=== PATIENT | female | born 1950 | race Caucasian/White ===

== ENCOUNTER 2019-09-04 05:23 | Emergency (ER) | payer MEDICARE, SELFPAY ==
[2019-09-04 05:36] VITALS: BP 148/75; PULSE 105; RESP 18; TEMP 36.8; O2SAT 97; BMI 35.2
[2019-09-04 05:38] VITALS: BP 167/95; PULSE 98; RESP 18; TEMP 36.5; O2SAT 95
--- NOTE | 2019-09-04 05:47 | PC.NURSE ---
Introduced self to patient and initiated vital signs. Patient presents A&O x 4. NAD, ABCs intact, MAEW and agreeable to treatment. Respirations are even and unlabored. Pt states that the chief complaint for the ER visit today is due to a cough which presented yesterday. Pt denies any vision disturbances or lightheadedness. Bed left in lowest position in semi-fowlers with side rails up.Reassured patient of needs and will continue to monitor.
--- NOTE | 2019-09-04 05:49 | XRR_ITS ---
PROCEDURE INFORMATION: Exam: XR Chest, 2 Views Exam date and time: 09/04/2019 6:11 AM Age: 69 years old Clinical indication: Cough and shortness of breath; Patient HX: Onset of cough with SOB starting yesterday TECHNIQUE: Imaging protocol: XR of the chest Views: 2 views. COMPARISON: CR Chest 1 [place] [id number] 05/29/2016 11:14 AM FINDINGS: Tubes, catheters and devices: Accentuation of main central pulmonary vasculature. Lungs: Persistent unchanged calcified granuloma right lower lung laterally. Pleural space: Small right pleural effusion. Heart/Mediastinum: Unremarkable. No cardiomegaly. Diaphragm: Focal eventration of the right hemidiaphragm. Vasculature: Tortuous thoracic aorta. Bones/joints: Degenerative change of the spine. Osteopenia. Surgical suture anchor right shoulder. XR/XR chest 2V* [id number] IMPRESSION: Small right pleural effusion.
--- NOTE | 2019-09-04 06:01 | ED_ITS ---
HPI - General Adult General: Chief complaint: General Medical Stated complaint: COUGH Time Seen by Provider: 09/04/19 05:49 Source: patient Mode of arrival: ambulatory Limitations: no limitations History of Present Illness: HPI narrative: pt is a 69 yo female that states she has had a cough over the last 2 days. she states that it has been non productive in nature. she denies any pain or dyspnea. denies any fevers. denies any sicks contacts. Onset (ago): day(s) Radiation: non-radiation Severity: moderate Associated symptoms: Deny chest pain, dyspnea, headache(s), nausea, rash or vomiting Review of Systems Const: Denies: fever, chills, body aches or change in appetite Eyes: Denies: blurry vision or eye discomfort ENMT: Denies: throat pain or dental pain Card: Denies: chest pain Resp: Reports: non-productive cough; Denies: shortness of breath GI: Denies: abdominal pain, nausea, vomiting or diarrhea : Denies: painful urination Musc: Denies: neck pain or back pain Skin/Breast: Denies: rash Neuro: Denies: headache Psych: Denies: depression Camilo/Lymph: Denies: easy bruising All/Imm: Denies: hives PFSH ED PFSH: Social History Smoking and tobacco status: never smoked Physical Exam Const: COMMON NORMALS: no apparent distress, oriented x3 and healthy appearing HENMT: COMMON NORMALS: normocephalic and head/scalp atraumatic HEAD & SCALP : normocephalic and atraumatic Eye: COMMON NORMALS: PERRL and EOMs intact bilaterally PUPIL: Yes PERRL Neck/C-Spine: COMMON NORMALS: full ROM and supple Chest: COMMONS NORMALS: inspection of chest normal and palpation of chest normal Resp: COMMON NORMALS: normal respiratory effort, no retractions, no use of accessory muscles and clear to auscultation bilaterally AUSCULTATION: clear to auscultation bilaterally Cardio: COMMON NORMALS: regular rate, regular rhythm and no murmurs RATE: regular rate RHYTHM: regular rhythm GI: COMMON NORMALS: normal to inspection, nondistended, normoactive bowel sounds, soft to palpation, non-tender and no masses PALPATION: Yes soft Extremity: COMMON NORMALS: normal to inspection and full ROM Neuro: COMMON NORMALS: oriented x3, moves all extremities and no focal motor deficits Psych: COMMON NORMALS: mental status grossly normal, thought process normal and cooperative THOUGHT PROCESS: normal thought process Skin: COMMON NORMALS: no rashes or lesions noted and no wounds GENERAL SKIN EXAM: no rashes or lesions noted Course Vital Signs: Vital signs: Vital Signs Temperature 97.7 F 09/04/19 05:38 Pulse Rate 93 09/04/19 07:40 Respiratory Rate 20 H 09/04/19 07:40 Blood Pressure 150/76 09/04/19 07:40 Pulse Oximetry 93 09/04/19 07:40 MDM - General Adult MDM Narrative: Medical decision making narrative: Patient presents with cough and congestion that is likely an upper respiratory infection. Patient does have a pleural effusion and possible bacterial infection. She is well-appearing here and has no shortness of breath. She likely has a sinusitis 2. Will start on doxycycline and Tessalon. She has no signs of cardiac cause or pulmonary embolism. She is return if she has a fever or any shortness of breath. Patient is to follow-up with her primary care doctor by the end of the week. She understands and agrees to this plan. Imaging Data^: CXR: Radiologist's impression: Ordering Provider/Ordering MD: Brigido Pace MD Date of Service: 09/04/19 Procedure(s): XR chest 2V* [id number] Accession Number(s): [id number] Report Number: [id number] PROCEDURE INFORMATION: Exam: XR Chest, 2 Views Exam date and time: 09/04/2019 6:11 AM Age: 69 years old Clinical indication: Cough and shortness of breath; Patient HX: Onset of cough with SOB starting yesterday TECHNIQUE: Imaging protocol: XR of the chest Views: 2 views. COMPARISON: CR Chest 1 [place] [id number] 05/29/2016 11:14 AM FINDINGS: Tubes, catheters and devices: Accentuation of main central pulmonary vasculature. Lungs: Persistent unchanged calcified granuloma right lower lung laterally. Pleural space: Small right pleural effusion. Heart/Mediastinum: Unremarkable. No cardiomegaly. Diaphragm: Focal eventration of the right hemidiaphragm. Vasculature: Tortuous thoracic aorta. Bones/joints: Degenerative change of the spine. Osteopenia. Surgical suture anchor right shoulder. XR/XR chest 2V* [id number] IMPRESSION: Small right pleural effusion. Discharge Plan Discharge Patient Disposition: Home, Self-Care Clinical Impression: Bronchitis Condition: Stable Prescriptions: New doxycycline hyclate 100 mg capsule 100 mg PO BID 14 Days Qty: 28 RF: 0 Tessalon Perles 100 mg capsule 100 mg PO Q6H PRN (Reason: cough) Qty: 14 RF: 0 Discharge Orders: Discharge Order (Routine); Ordered 09/04/19 Ordered By: Brigido Pace Discharge Diet: Advance as tolerated Discharge Activity: Resume usual activity Patient Instructions: Acute Bronchitis (ED) Discharge Date/Time: 09/04/19 07:45 Coding Level of Care Code ED Paperboard Machine Operator for Compa Fwd Exam Comprehensive
[2019-09-04] MEDS: benzonatate 100 mg Capsule PO (06:37)
[2019-09-04 07:40] VITALS: BP 150/76; PULSE 93; RESP 20; O2SAT 93
== END 2019-09-04 07:45 | disposition home or self-care (01) ==
PROVIDERS: Emergency Provider Emergency Medicine
DX: J40 Bronchitis, not specified as acute or chronic (principal); J90 Pleural effusion, not elsewhere classified
CPT/HCPCS: 71046; 99281; 99283

== ENCOUNTER 2020-03-15 13:38 | Emergency (ER) | payer MEDICARE, SELFPAY ==
[2020-03-15 13:53] VITALS: BP 135/77; PULSE 101; RESP 20; TEMP 37.2; O2SAT 91; BMI 38.0
--- NOTE | 2020-03-15 14:07 | ECG_ITS ---
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 Measurements Intervals [place] Rate: 98 P: 52 MA: 175 QRS: 7 QRSD: 94 T: 0 QT: 367 QTc: 469 Interpretive Statements SINUS RHYTHM WITH FREQUENT SUPRAVENTRICULAR PREMATURE COMPLEXES NONSPECIFIC ST & T-WAVE ABNORMALITY ABNORMAL RHYTHM ECG Compared to ECG 03/02/2018 07:46:10 T-wave abnormality now present Myocardial infarct finding no longer present Electronically Signed On 03-15-2020 23:43:08 CDT by Micah Bland M.D. [id number]
--- NOTE | 2020-03-15 14:07 | XRR_ITS ---
PROCEDURE INFORMATION: Exam: XR Chest, 1 View Exam date and time: 03/15/2020 2:26 PM Age: 69 years old Clinical indication: Dyspnea; Additional info: Dyspnea since Sunday TECHNIQUE: Imaging protocol: XR of the chest Views: 1 view. COMPARISON: CR XR chest 2V* [id number] 09/04/2019 5:58 AM FINDINGS: Lungs: Prominent right hilar vascular structures stable since prior. Circumscribed granuloma is present in the right lower lobe near the costophrenic sulcus. This finding measures 9 mm. There are scattered granulomas in the left perihilar region. No consolidation. Pleural space: Unremarkable. No pleural effusion. No pneumothorax. Heart/Mediastinum: Unremarkable. No cardiomegaly. Bones/joints: Unremarkable. XR/XR chest 1V portable [id number] IMPRESSION: 1. No acute findings. 2. Stable right lower lobe granuloma. 3. Stable left perihilar granulomas
--- NOTE | 2020-03-15 14:29 | W.ED.GENADLT ---
HPI - General Adult General: Chief complaint: General Medical Stated complaint: FLU SYMPTOMS Time Seen by Provider: 03/15/20 13:53 Source: patient Mode of arrival: ambulatory Limitations: no limitations History of Present Illness: HPI narrative: Kathrin is a very nice 69-year-old female who comes in complaining of flulike symptoms. The patient states that she has had for the past 3 days muscle aches and pains and malaise. She denies loss of sense of taste or loss of sense of smell. She has no cough. She states that she occasionally gets short of breath but she states that is chronic for her. She states she just feels achy and flulike all over. She not had a fever but she has been chilled. She denies any chest pain, back pain, abdominal pain, diarrhea, constipation, or urinary symptoms. Her is ill with similar symptoms but he is also having diarrhea but she is not. Patient's not tried anything for this at home to see if it makes it better or worse. Patient states overall she does not feel that bad but she is concerned about the COVID-19 virus and that is why she came in to get evaluated. Associated symptoms: Reports malaise; Deny chest pain, confusion, diaphoresis, dyspnea, headache(s), nausea, rash, palpitations, syncope or vomiting Review of Systems Const: Reports: body aches, fatigue and malaise; Denies: fever(s), chills or diaphoresis Eyes: Denies: change in vision, blurry vision, photophobia, eye discomfort, eye discharge or eye redness ENMT: Denies: throat pain, odynophagia, hoarseness, swelling of lips/tongue, ear or mastoid pain, ear discharge, change in hearing or nasal discharge Card: Denies: chest pain, palpitations, irregular heart rhythm, edema, lightheadedness, syncope, pre-syncope, dyspnea on exertion or orthopnea Resp: Denies: dyspnea, productive cough, non-productive cough, wheezing, hemoptysis or chest congestion GI: Denies: abdominal pain, nausea, vomiting, hematemesis, coffee ground emesis, heartburn, diarrhea, constipation, GI cramping, hematochezia or melena : Denies: flank pain, dysuria, urinary frequency, urinary urgency or hematuria Musc: Denies: neck pain, back pain, extremity pain, extremity swelling, joint pain, joint swelling, joint redness, joint warmth or joint stiffness Skin/Breast: Denies: rash, pruritus, erythema or skin tenderness Neuro: Denies: headache(s), numbness in extremities, weakness in extremities, sensory changes, lack of coordination, difficulty walking, dizziness, vertigo, confusion, Slurred speech present or seizure-like activity Camilo/Lymph: Denies: easy bruising, easy bleeding, petechiae, purpura or enlarged lymph nodes All/Imm: Denies: urticaria, throat swelling, tongue swelling, facial swelling or acute wheezing PFSH ED PFSH: Medical History Asthma CVA (cerebral vascular accident) DM type 2 (diabetes mellitus, type 2) Hyperlipidemia Hypertension Social History Smoking and tobacco status: never smoked Physical Exam Const: COMMON NORMALS: no acute distress, patient oriented x3, no limitations, healthy appearing and well nourished GENERAL APPEARANCE: cooperative, well kempt and well developed HENMT: COMMON NORMALS: normocephalic, atraumatic, external ears normal, EAC's normal and Normal external nose present HEAD & SCALP: normal to inspection, normocephalic and atraumatic FACE & SINUS: normal facial exam and face symmetric NOSE: Normal external nose present and Normal nares present EXTERNAL EAR: Yes external ears normal EXTERNAL AUDITORY CANAL: EAC's normal MOUTH: Normal oral and palatal mucosa present, lip normal and tongue normal Eye: COMMON NORMALS: Equal, round and reactive pupils present and conjunctivae normal GENERAL EYE: appearance normal, both eyes and all related structures ALIGNMENT: Yes alignment normal PERIORBITAL: periorbital findings normal EYELID: eyelids normal CONJUNCTIVA: Yes conjunctivae normal SCLERA: sclerae normal PUPIL: Yes Equal, round and reactive pupils present Neck/C-Spine: COMMON NORMALS: full ROM, no lymphadenopathy, supple, no meningeal signs and no JVD GENERAL: Yes normal visual inspection and Yes trachea midline Chest: COMMONS NORMALS: normal inspection of the chest and normal palpation of entire chest wall Resp: COMMON NORMALS: normal respiratory effort, No retractions, No use of accessory muscles and clear to auscultation bilaterally EFFORT & INSPECTION: Yes able to speak in complete sentences and Yes symmetric chest movement AUSCULTATION: clear to auscultation bilaterally, no crackles, no rales, no rhonchi and no wheezes Cardio: COMMON NORMALS: no JVD, regular rate, regular rhythm, S1 normal heart sound present and S2 normal heart sound present RATE: regular rate RHYTHM: regular rhythm HEART SOUNDS: S1 normal heart sound present, S2 normal heart sound present, no click, no gallops, no murmurs, no rubs and abnormal split S2 GI: COMMON NORMALS: Soft to palpation and No hepatosplenomegaly present PALPATION: Yes Soft to palpation, No Tenderness to palpation present (GI), No Guarding due to palpation present (GI), No Rigid due to palpation, Yes No hepatosplenomegaly present, No Hernia present, No Palpable mass present and No Pulsatile mass present : COMMON NORMALS: Yes no CVA tenderness BLADDER/KIDNEY EXAM: Yes no CVA tenderness EXTERNAL FEMALE EXAM: No Hernia present Back/Pelvis: COMMON NORMALS: no CVA tenderness, thoracic and lumbar spine normal to inspection, no thoracic nor lumbar tenderness and thoraco-lumbar ROM normal Extremity: COMMON NORMALS: normal to inspection, full ROM, capillary refill normal, no joint enlargement, no clubbing, cyanosis or edema and no calf tenderness Neuro: COMMON NORMALS: patient oriented x3, CN's II-XII intact bilaterally, moves all extremities, no focal motor deficits and no sensory deficits noted MENINGEAL SIGNS: Yes no meningeal signs SPEECH: speech normal Psych: COMMON NORMALS: mental status grossly normal, Normal thought process present, cooperative, normal affect, speech normal and activity/motor behavior normal APPEARANCE: Yes well kempt SPEECH: Yes normal speech THOUGHT PROCESS: Normal thought process present Skin: COMMON NORMALS: no rashes or lesions noted, turgor normal, no jaundice, no petechiae and no mottling GENERAL SKIN EXAM: no rashes or lesions noted and turgor normal Course Vital Signs: Vital signs: Vital Signs Temperature 98.9 F 03/15/20 13:53 Pulse Rate 94 03/15/20 18:26 Respiratory Rate 18 03/15/20 18:26 Blood Pressure 118/86 03/15/20 18:26 Pulse Oximetry 94 03/15/20 18:26 MDM - General Adult MDM Narrative: Medical decision making narrative: 1842 -patient is feeling much better. She is eating and drinking in the room and has no complaints at this time. Her lab evaluation has been unremarkable except for a mild UTI. Patient's was here with similar symptoms so I think this is more likely a viral syndrome but I will go ahead and treat her for her UTI. I discussed with the patient's the reasons for which she needs to return here to the ER and she states she understands. She will follow-up with her regular doctor or return here if she needs to. This time though she looks good and she is ready for discharge. She was given a dose of IV Rocephin for her UTI prior to discharge. Lab Data: Attestation: I reviewed the patient's lab results. Labs: Lab Results 03/15/20 03/15/20 03/15/20 Range/Units 14:25 14:25 14:35 WBC (4.0-10.0) 10^3/ uL RBC (4.1-5.3) 10^6/u L Hgb (11.5-15.3) g/dL Hct (37.0-47.0) % MCV (81-99) fL MCH (28.0-34.0) pg MCHC (30.0-36.0) g/dL RDW (12.1-15.1) % Plt Count (130-400) 10^3/c mm MPV (7.4-10.4) fL Neut % (Auto) % Lymph % (Auto) % Mccone % (Auto) % Eos % (Auto) % Baso % (Auto) % Neut # (Auto) (1.8-7.7) 10^3/u L Lymph # (Auto) (0.8-4.8) 10^3/u L Mccone # (Auto) (0.2-0.9) 10^3/u L Eos # (Auto) (0.0-0.8) 10^3/u L Baso # (Auto) (0.0-0.1) 10^3/u L Nucleated RBC % (a uto) % Nucleated RBCs # /100WBC Sodium (136-145) mmol/L Potassium (3.5-5.1) mmol/L Chloride (98-107) mmol/L Carbon Dioxide (22-29) mmol/L Anion Gap (5-19) BUN (8-23) mg/dL Creatinine (0.5-0.9) mg/dL GFR Calculation (90-130) mL/min Glucose (65-115) mg/dL Calculated Osmolal ity (285-295) mOsm/k g Lactic Acid (0.5-2.2) mmol/L Lactic Acid (Sepsi s) (0.5-2.2) mmol/L Calcium (8.5-10.5) mg/dL Magnesium (1.7-2.3) mg/dL Total Bilirubin (0.15-1.2) mg/dL AST (0-32) U/L ALT (0-33) U/L Alkaline Phosphata se (35-105) IU/L Troponin T Gen 5 n g/L (0-10) ng/L Troponin T 120 Min [place] (0-10) ng/L Delta Troponin T (0-10) ABS# Total Protein (6.6-8.7) g/dL Albumin (3.5-5.2) g/dL Globulin (1.3-4.6) g/dL Lipase (13-60) U/L Urine Color Yellow (Yellow) Urine Appearance Clear (CLEAR) Urine pH 5 (5-7) Ur Specific Gravit y 1.015 (1.005-1.030) Urine Protein 1+ H (Negative) Urine Glucose (UA) Norm (Normal) Urine Ketones Negative (Negative) Urine Blood Trace H (Negative) Urine Nitrate Negative (Negative) Urine Bilirubin Neg (NEGATIVE) Urine Urobilinogen Norm (Negative) mg/dL Ur Leukocyte Cassandra ase Trace H (Negative) Urine RBC None (0-2) /hpf Urine WBC 5-10 H (0-5) /hpf Ur Squamous Epith Cells 0-4 H (0-5) Amorphous Sediment Not Reportable Urine Bacteria 1+ H (NONE) Urine Mucus 2+ Influenza Type A A g Negative (Negative) Influenza Type B A g Negative (Negative) SARS-CoV-2 Ag (Rap id) Negative (Negative) 03/15/20 03/15/20 03/15/20 Range/Units 15:15 15:15 15:15 WBC 13.4 H (4.0-10.0) 10^3/ uL RBC 3.81 L (4.1-5.3) 10^6/u L Hgb 10.1 L (11.5-15.3) g/dL Hct 33.0 L (37.0-47.0) % MCV 86.6 (81-99) fL MCH 26.5 L (28.0-34.0) pg MCHC 30.6 (30.0-36.0) g/dL RDW 13.9 (12.1-15.1) % Plt Count 327 (130-400) 10^3/c mm MPV 10.2 (7.4-10.4) fL Neut % (Auto) 81.0 % Lymph % (Auto) 9.0 % Mccone % (Auto) 9.1 % Eos % (Auto) 0.1 % Baso % (Auto) 0.4 % Neut # (Auto) 10.83 H (1.8-7.7) 10^3/u L Lymph # (Auto) 1.2 (0.8-4.8) 10^3/u L Mccone # (Auto) 1.2 H (0.2-0.9) 10^3/u L Eos # (Auto) 0.0 (0.0-0.8) 10^3/u L Baso # (Auto) 0.1 (0.0-0.1) 10^3/u L Nucleated RBC % (a uto) 0 % Nucleated RBCs # 0.0 /100WBC Sodium 138 (136-145) mmol/L Potassium 3.6 (3.5-5.1) mmol/L Chloride 100 (98-107) mmol/L Carbon Dioxide 20 L (22-29) mmol/L Anion Gap 21.6 H (5-19) BUN 11 (8-23) mg/dL Creatinine 0.6 (0.5-0.9) mg/dL GFR Calculation 99.4 (90-130) mL/min Glucose 118 H (65-115) mg/dL Calculated Osmolal ity 283 L (285-295) mOsm/k g Lactic Acid 2.6 H (0.5-2.2) mmol/L Lactic Acid (Sepsi s) (0.5-2.2) mmol/L Calcium 9.3 (8.5-10.5) mg/dL Magnesium 1.2 L (1.7-2.3) mg/dL Total Bilirubin 1.1 (0.15-1.2) mg/dL AST 11 (0-32) U/L ALT 9 (0-33) U/L Alkaline Phosphata se 105 (35-105) IU/L Troponin T Gen 5 n g/L (0-10) ng/L Troponin T 120 Min [place] (0-10) ng/L Delta Troponin T (0-10) ABS# Total Protein 7.2 (6.6-8.7) g/dL Albumin 4.3 (3.5-5.2) g/dL Globulin 2.9 (1.3-4.6) g/dL Lipase 17 (13-60) U/L Urine Color (Yellow) Urine Appearance (CLEAR) Urine pH (5-7) Ur Specific Gravit y (1.005-1.030) Urine Protein (Negative) Urine Glucose (UA) (Normal) Urine Ketones (Negative) Urine Blood (Negative) Urine Nitrate (Negative) Urine Bilirubin (NEGATIVE) Urine Urobilinogen (Negative) mg/dL Ur Leukocyte Cassandra ase (Negative) Urine RBC (0-2) /hpf Urine WBC (0-5) /hpf Ur Squamous Epith Cells (0-5) Amorphous Sediment Urine Bacteria (NONE) Urine Mucus Influenza Type A A g (Negative) Influenza Type B A g (Negative) SARS-CoV-2 Ag (Rap id) (Negative) 03/15/20 03/15/20 03/15/20 Range/Units 15:15 17:25 18:08 WBC (4.0-10.0) 10^3/ uL RBC (4.1-5.3) 10^6/u L Hgb (11.5-15.3) g/dL Hct (37.0-47.0) % MCV (81-99) fL MCH (28.0-34.0) pg MCHC (30.0-36.0) g/dL RDW (12.1-15.1) % Plt Count (130-400) 10^3/c mm MPV (7.4-10.4) fL Neut % (Auto) % Lymph % (Auto) % Mccone % (Auto) % Eos % (Auto) % Baso % (Auto) % Neut # (Auto) (1.8-7.7) 10^3/u L Lymph # (Auto) (0.8-4.8) 10^3/u L Mccone # (Auto) (0.2-0.9) 10^3/u L Eos # (Auto) (0.0-0.8) 10^3/u L Baso # (Auto) (0.0-0.1) 10^3/u L Nucleated RBC % (a uto) % Nucleated RBCs # /100WBC Sodium (136-145) mmol/L Potassium (3.5-5.1) mmol/L Chloride (98-107) mmol/L Carbon Dioxide (22-29) mmol/L Anion Gap (5-19) BUN (8-23) mg/dL Creatinine (0.5-0.9) mg/dL GFR Calculation (90-130) mL/min Glucose (65-115) mg/dL Calculated Osmolal ity (285-295) mOsm/k g Lactic Acid (0.5-2.2) mmol/L Lactic Acid (Sepsi s) 1.6 (0.5-2.2) mmol/L Calcium (8.5-10.5) mg/dL Magnesium (1.7-2.3) mg/dL Total Bilirubin (0.15-1.2) mg/dL AST (0-32) U/L ALT (0-33) U/L Alkaline Phosphata se (35-105) IU/L Troponin T Gen 5 n g/L 23 H (0-10) ng/L Troponin T 120 Min [place] 19.21 H (0-10) ng/L Delta Troponin T -3.79 L (0-10) ABS# Total Protein (6.6-8.7) g/dL Albumin (3.5-5.2) g/dL Globulin (1.3-4.6) g/dL Lipase (13-60) U/L Urine Color (Yellow) Urine Appearance (CLEAR) Urine pH (5-7) Ur Specific Gravit y (1.005-1.030) Urine Protein (Negative) Urine Glucose (UA) (Normal) Urine Ketones (Negative) Urine Blood (Negative) Urine Nitrate (Negative) Urine Bilirubin (NEGATIVE) Urine Urobilinogen (Negative) mg/dL Ur Leukocyte Cassandra ase (Negative) Urine RBC (0-2) /hpf Urine WBC (0-5) /hpf Ur Squamous Epith Cells (0-5) Amorphous Sediment Urine Bacteria (NONE) Urine Mucus Influenza Type A A g (Negative) Influenza Type B A g (Negative) SARS-CoV-2 Ag (Rap id) (Negative) Imaging Data^: CXR: Attestation: I personally reviewed and interpreted this imaging study as follows: My impression: No acute cardiopulmonary findings. Right perihilar lesion unchanged from previous. EKG Data^: EKG 1: Attestation: I personally reviewed and interpreted this EKG as follows: EKG interpretation date: 03/15/20 EKG interpretation time: 14:31 Interpretation: Normal sinus rhythm at 98 beats a minute, normal axis, no blocks, normal intervals, no acute ST-T wave changes. Computer generated interpretation: Chest X-Ray 03/15/20 14:07 IMPRESSION: 1. No acute findings. 2. Stable right lower lobe granuloma. 3. Stable left perihilar granulomas EKG 2: Attestation: I personally reviewed and interpreted this EKG as follows: EKG interpretation date: 03/15/20 EKG interpretation time: 18:06 Interpretation: Normal sinus rhythm at 95 beats a minute, no blocks, normal intervals, normal axis, no acute ST or T wave changes. Computer generated interpretation: Chest X-Ray 03/15/20 14:07 IMPRESSION: 1. No acute findings. 2. Stable right lower lobe granuloma. 3. Stable left perihilar granulomas Discharge Plan Discharge Patient Disposition: Home Clinical Impression: Acute viral syndrome, Acute UTI Condition: Stable Prescriptions: New cefdinir 300 mg capsule 300 mg PO Q12H 10 Days Qty: 20 RF: 0 No Action atorvastatin 40 mg tablet 40 mg PO BEDTIME RF: 0 lisinopril-hydrochlorothiazide 20-12.5 mg tablet 1 tab PO DAILY RF: 0 clopidogrel 75 mg tablet 75 mg PO DAILY RF: 0 allopurinol 100 mg tablet 100 mg PO DAILY RF: 0 Aspirin Low Dose 81 mg Tablet,Delayed Release (Dr/Ec) 81 mg PO DAILY RF: 0 diltiazem HCl 120 mg tablet 120 mg PO DAILY RF: 0 metformin 1,000 mg tablet 1,000 mg PO BID RF: 0 gabapentin 300 mg capsule 300 mg PO BEDTIME RF: 0 omeprazole 20 mg capsule,delayed release(DR/EC) 20 mg PO DAILY RF: 0 mirtazapine 15 mg tablet 15 mg PO BEDTIME RF: 0 paroxetine HCl 40 mg tablet 40 mg PO DAILY RF: 0 Trulicity 1.5 mg/0.5 mL pen injector 1.5 mg SUBCUT Q7D RF: 0 lorazepam See Rx Instructions .ROUTE .COMPLEX RF: 0 Discharge Orders: Discharge Order (Routine); Ordered 03/15/20 Ordered By: Dottie Saldana Referrals: Zion Cline MD [Physician] - 1-3 days Discharge Diet: Advance as tolerated Discharge Activity: Increase activity as tolerated Patient Instructions: Viral Pneumonia (ED), Urinary Tract Infection in Women (ED) Activity Restrictions/Additional Instructions: Please return to the ER immediately for any of the signs or symptoms listed on your discharge instruction sheets, worsening/changing of your symptoms, you are not getting better as quickly as expected, or for ANY other cause or concerns. Please return to the ER immediately for increased weakness, vomiting, fever, or for any other cause for concern. Be certain to follow-up with Dr. Cline or your doctor as soon as possible for recheck. Coding Level of Care Code ED Mobile Home Set Up Person for Compa Fwd Exam Comprehensive
[2020-03-15 15:15] LABS: SARS Covid-2 Antigen Negative (Negative)
[2020-03-15 15:19] LABS: Add Urine Microscopic? YES; Bilirubin Urine Neg (NEGATIVE); Blood Urine Trace (Negative); Glucose Urine UA Norm (Normal); Ketones Urine Negative (Negative); Leukocyte Esterase Urine Trace (Negative); Nitrate Urine Negative (Negative); Protein Urine 1+ (Negative); Specific Gravity, Urine 1.015 (1.005-1.030); Urine Appearance Clear (CLEAR); Urine Color Yellow (Yellow); Urobilinogen Urine Norm (Negative); pH Urine 5 (5-7)
[2020-03-15 15:22] LABS: Bacteria Urine 1+; Squamous Epithelial Cell Urine 0-4 (0-5)
[2020-03-15 15:23] LABS: Add Urine Culture? No; Mucus Urine 2+
[2020-03-15 15:26] LABS: Basophils # 0.1 10^3/uL (0.0-0.1); Basophils % 0.4 %; Eosinophils % 0.1 %; Hemoglobin 10.1 g/dL (11.5-15.3); Lymphocytes # 1.2 10^3/uL (0.8-4.8); Mean Corpuscular HGB Conc 30.6 g/dL (30.0-36.0); Mean Corpuscular Hemoglobin 26.5 pg (28.0-34.0); Mean Corpuscular Volume 86.6 fL (81-99); Mean Platelet Volume 10.2 fL (7.4-10.4); Monocytes # 1.2 10^3/uL (0.2-0.9); Monocytes % 9.1 %; Neutrophils # 10.83 10^3/uL (1.8-7.7); Nucleated Red Blood Cells % 0 %; Platelet Count 327 10^3/cmm (130-400); Red Blood Count 3.81 10^6/uL (4.1-5.3); Red Cell Distribution Width 13.9 % (12.1-15.1); White Blood Count 13.4 10^3/uL (4.0-10.0)
[2020-03-15 15:40] LABS: Influenza A by IFA Negative (Negative); Influenza B by IFA Negative (Negative)
[2020-03-15 15:56] LABS: Lactic Sepsis W/Reflex 2.6 mmol/L (0.5-2.2)
[2020-03-15 15:59] LABS: Alanine Aminotransferase 9 U/L (0-33); Albumin Level 4.3 g/dL (3.5-5.2); Alkaline Phosphatase 105 IU/L (35-105); Anion Gap 21.6 (5-19); Aspartate Amino Transferase 11 U/L (0-32); Blood Urea Nitrogen 11 mg/dL (8-23); Calcium 9.3 mg/dL (8.5-10.5); Carbon Dioxide 20 mmol/L (22-29); Chloride 100 mmol/L (98-107); Globulin 2.9 g/dL (1.3-4.6); Glomerular Filtration Rate 99.4 mL/min (90-130); Glucose 118 mg/dL (65-115); Lipase 17 U/L (13-60); Magnesium 1.2 mg/dL (1.7-2.3); Osmolality Calculated 283 mOsm/kg (285-295); Potassium 3.6 mmol/L (3.5-5.1); Sodium 138 mmol/L (136-145); Total Bilirubin 1.1 mg/dL (0.15-1.2); Total Protein 7.2 g/dL (6.6-8.7); Troponin T (5th) Once 23 ng/L (0-10)
--- NOTE | 2020-03-15 16:16 | ECG_ITS ---
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 Measurements Intervals [place] Rate: 90 P: 61 MS: 174 QRS: -1 QRSD: 86 T: -9 QT: 381 QTc: 468 Interpretive Statements SINUS RHYTHM WITH OCCASIONAL SUPRAVENTRICULAR PREMATURE COMPLEXES LOW QRS VOLTAGE IN PRECORDIAL LEADS [QRS DEFLECTION < 1.0 mV IN CHEST LEADS] Compared to ECG 03/15/2020 14:31:09 Low QRS voltage now present T-wave abnormality no longer present Electronically Signed On 03-15-2020 23:44:41 CDT by Micah Bland M.D. [id number]
[2020-03-15 17:04] LABS: Reflex Lactate Order REFLEX LACTIC ORDERD
[2020-03-15] MEDS: sodium chloride 0.9% 1,000 ML 999 ML IV ×2 (17:09→18:15)
[2020-03-15] MEDS: cefTRIAXone 1,000 MG in sodium chloride 0.9% (plus) 50 ML 100 MG IV (17:09)
[2020-03-15 17:58] LABS: Troponin 5 2HR 19.21 ng/L (0-10)
[2020-03-15 18:08] LABS: Troponin 5 2HR Delta -3.79 ABS# (0-10)
[2020-03-15] MEDS: magnesium sulfate premix 2 GM/50 ML PIGGYBACK IV (18:15)
--- NOTE | 2020-03-15 18:16 | ECG_ITS ---
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 Measurements Intervals [place] Rate: 95 P: 45 ID: [id number] QRS: 8 QRSD: 83 T: 38 QT: 368 QTc: 465 Interpretive Statements SINUS RHYTHM WITH FREQUENT SUPRAVENTRICULAR PREMATURE COMPLEXES LOW QRS VOLTAGE IN PRECORDIAL LEADS [QRS DEFLECTION < 1.0 mV IN CHEST LEADS] NONSPECIFIC ST & T-WAVE ABNORMALITY ABNORMAL RHYTHM ECG Compared to ECG 03/15/2020 16:44:50 T-wave abnormality now present Electronically Signed On 03-15-2020 23:48:19 CDT by Micah Bland M.D. [id number]
[2020-03-15 18:26] VITALS: BP 118/86; PULSE 94; RESP 18; O2SAT 94
[2020-03-15 18:35] LABS: Lactic Acid level (Lactate) 1.6 mmol/L (0.5-2.2)
[2020-03-15 19:26] VITALS: BP 126/82; PULSE 72; RESP 14; O2SAT 94
== END 2020-03-15 19:27 | disposition home or self-care (01) ==
PROVIDERS: Emergency Provider Emergency Medicine
DX: B34.9 Viral infection, unspecified (principal); N39.0 Urinary tract infection, site not specified; Z79.02 Long term (current) use of antithrombotics/antiplatelets; Z79.82 Long term (current) use of aspirin; Z86.73 Personal history of transient ischemic attack (TIA), and cerebral infarction without residual deficits; E11.9 Type 2 diabetes mellitus without complications; E78.5 Hyperlipidemia, unspecified; I10 Essential (primary) hypertension
CPT/HCPCS: 12345; 36415; 71045; 80053; 81001; 83605; 83690; 83735; 84484; 85025; 87426; 87804; 93005; 96365; 96367; 99283; 99284; J0696; J3475; J7030

== ENCOUNTER 2020-11-10 08:28 | Outpatient (CLI) | payer MEDICARE, SELFPAY ==
--- NOTE | 2020-11-10 08:36 | MM_ITS ---
WS: [id number] BILATERAL DIGITAL SCREENING MAMMOGRAPHY WITH CAD CLINICAL INFORMATION: SCREENING HISTORY: Screening mammogram. No current complaints. COMPARISON: July 26, 2015 TECHNIQUE: Bilateral CC and MLO views. FINDINGS: Scattered fibroglandular densities bilaterally. No suspicious focal mass, asymmetry, calcifications, or architectural distortion. No evidence of malignancy. Benign punctate and vascular calcifications. [place] centered calcifications. MM/[place] [id number] IMPRESSION: BI-RADS: 2-Benign FOLLOW UP: 1 Year Follow-up Recommend return to annual screening mammography.
== END 2020-11-10 08:29 | disposition home or self-care (01) ==
LOC: RADSHAW 08:32
PROVIDERS: PCP Nurse Practitioner Family; Visit Provider Nurse Practitioner Family
DX: Z12.31 Encounter for screening mammogram for malignant neoplasm of breast (principal)
CPT/HCPCS: 77067

== ENCOUNTER → 2021-06-25 10:29 | Outpatient (BNVA) | payer MEDICARE, SELFPAY | PROVIDERS: PCP Nurse Practitioner Family; Visit Provider Registered Nurse Neonatal Intensive Care | DX: Z20.822 Contact with and (suspected) exposure to COVID-19 (principal) | CPT/HCPCS: 87635 ==

== ENCOUNTER 2022-04-13 10:46 | Outpatient (CLI) | payer MEDICARE, SELFPAY ==
[2022-04-13 11:58] LABS: Basophils # 0.1 10^3/uL (0.0-0.1); Basophils % 0.9 %; Eosinophils # 0.2 10^3/uL (0.0-0.8); Hematocrit 38.3 % (37.0-47.0); Hemoglobin 11.4 g/dL (11.5-15.3); Lymphocytes # 2.4 10^3/uL (0.8-4.8); Lymphocytes % 22.6 %; Mean Corpuscular HGB Conc 29.8 g/dL (30.0-36.0); Mean Corpuscular Hemoglobin 25.1 pg (28.0-34.0); Mean Corpuscular Volume 84.4 fl (81-99); Mean Platelet Volume 9.9 fL (7.4-10.4); Monocytes # 0.7 10^3/uL (0.2-0.9); Monocytes % 6.3 %; Neutrophils # 7.08 10^3/uL (1.8-7.7); Neutrophils % 67.9 %; Nucleated Red Blood Cells % 0 %; Platelet Count 492 10^3/cmm (130-400); Red Blood Count 4.54 10^6/uL (4.1-5.3); Red Cell Distribution Width 16.4 % (12.1-15.1); White Blood Count 10.4 10^3/uL (4.0-10.0)
[2022-04-13 12:10] LABS: INR 0.94 (0.83-1.21); Prothrombin Time (Patient) 12.9 Seconds (12.0-15.1)
[2022-04-13 12:20] LABS: Anion Gap 16.4 (5-19); Blood Urea Nitrogen 17 mg/dL (8-23); Calcium 10.1 mg/dL (8.5-10.5); Carbon Dioxide 28 mmol/L (22-29); Chloride 100 mmol/L (98-107); Glomerular Filtration Rate 70.9 mL/min (90-130); Glucose 77 mg/dL (65-115); Osmolality Calculated 290 mOsm/kg (285-295); Potassium 4.4 mmol/L (3.5-5.1); Sodium 140 mmol/L (136-145)
== END 2022-04-13 10:47 | disposition home or self-care (01) ==
PROVIDERS: PCP Nurse Practitioner Family; Visit Provider Internal Medicine Cardiovascular Disease
DX: I10 Essential (primary) hypertension (principal); I49.8 Other specified cardiac arrhythmias; I63.9 Cerebral infarction, unspecified
CPT/HCPCS: 36415; 80048; 85025; 85610

== ENCOUNTER → 2022-09-18 11:16 | Outpatient (BNVA) | payer MEDICARE, SELFPAY | PROVIDERS: PCP Nurse Practitioner Family; Visit Provider Internal Medicine Cardiovascular Disease | DX: I49.8 Other specified cardiac arrhythmias (principal) | CPT/HCPCS: 93242; 99214 ==

== ENCOUNTER 2022-10-18 15:54 | Emergency (ER) | payer MEDICARE, SELFPAY ==
[2022-10-18 16:14] VITALS: BMI 34.2
--- NOTE | 2022-10-18 16:14 | XRR_ITS ---
PROCEDURE INFORMATION: Exam: XR Chest Exam date and time: 10/18/2022 4:31 PM Age: 72 years old Clinical indication: Other: Tachycardia TECHNIQUE: Imaging protocol: Radiologic exam of the chest. Views: 1 view. COMPARISON: CR XR chest 1V portable [id number] 03/15/2020 2:16 PM FINDINGS: Lungs: Calcified granuloma in the right base. No consolidation. Pleural spaces: Unremarkable. No pleural effusion. No pneumothorax. Heart/Mediastinum: Unremarkable. No cardiomegaly. Diaphragm: Stable eventration of the right diaphragm. Bones/joints: [place] in the right humeral head. Other findings: Radiopaque densities in the patient's clothing. XR/XR chest 1V portable [id number] IMPRESSION: 1. No acute findings.
--- NOTE | 2022-10-18 16:15 | ECG_ITS ---
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 Measurements Intervals [place] Rate: 110 P: 0 MI: 0 QRS: 37 QRSD: 98 T: 23 QT: 351 QTc: 475 Interpretive Statements ATRIAL FLUTTER/TACHYCARDIA WITH RAPID VENTRICULAR RESPONSE WITH ABERRANT CONDUCTION OR VENTRICULAR PREMATURE COMPLEXES LOW QRS VOLTAGE IN PRECORDIAL LEADS [QRS DEFLECTION < 1.0 mV IN CHEST LEADS] ABNORMAL RHYTHM ECG Compared to ECG 03/15/2020 18:06:05 Ventricular premature complex(es) now present Aberrant conduction of supraventricular beat(s) now present Sinus rhythm no longer present T-wave abnormality no longer present Electronically Signed On 10-19-2022 0:14:20 CDT by Micah Bland M.D. [id number]
[2022-10-18 16:17] VITALS: BP 132/84; PULSE 106; RESP 18; O2SAT 96
--- NOTE | 2022-10-18 16:49 | W.ED.ARRPALP ---
HPI - Arrhythmia/Palpitations General: Chief Complaint: Arrhythmia/Palpitations Stated Complaint: high HR, Baldo grimm sent Time Seen by Provider: 10/18/22 16:13 History of Present Illness: Patient was sent over here by Dr. Bland for tachycardia. Patient saw him yesterday and return to Holter monitor. He wanted an echo done which she was having done today. Patient's heart rate usually runs 100 to 115 bpm routinely. While she was having her echo done the tech reported her heart rate at [address] Bland and he sent her over here for more evaluation. Patient does have known atrial fibrillation. Patient denies any symptoms at this moment including lightheaded dizziness shortness of breath and chest pain. MD complaint: rapid heart beat Onset (ago): unknown (Chronic but worse with getting her echo) Duration: constant Severity: mild Context: occurred during rest Arrhythmia history: atrial fibrillation Associated symptoms: Reports no associated symptoms; Deny anxiety, nausea or vomiting Review of Systems General: Reports: 10 or more systems reviewed and unremarkable except in HPI and below Const: Denies: fever(s) or chills Eyes: Denies: change in vision ENMT: Denies: throat pain or enlarged tonsils Card: Reports: irregular heart rhythm; Denies: chest pain or palpitations Resp: Denies: dyspnea, productive cough or non-productive cough GI: Denies: abdominal pain, nausea, vomiting or diarrhea : Denies: flank pain Musc: Denies: neck pain or back pain Skin/Breast: Denies: rash or pruritus Neuro: Denies: headache(s), numbness in extremities or weakness in extremities Psych: Denies: anxiety or depression All/Imm: Denies: urticaria or throat swelling PFSH ED PFSH: Medical History Asthma CVA (cerebral vascular accident) DM type 2 (diabetes mellitus, type 2) Hyperlipidemia Hypertension Family History Mother Stroke Hypertension CAD (coronary artery disease) Diabetes Grandmother CAD (coronary artery disease) Cancer Diabetes Father CAD (coronary artery disease) Family/Other Lung disease Denies family history of Clotting disorder Dementia Chronic kidney disease (CKD) Suicide Anesthesia complication Bleeding disorder Social History Smoking and tobacco status: never smoked Alcohol intake: never Physical Exam Const: COMMON NORMALS: no acute distress, average body habitus, patient oriented x3, no limitations, healthy appearing, alert and well nourished HENMT: COMMON NORMALS: normocephalic, atraumatic, hearing grossly normal bilaterally, external ears normal, Normal external nose present and moist oral mucous membranes HEAD & SCALP: normocephalic and atraumatic NOSE: Normal external nose present EXTERNAL EAR: Yes external ears normal Eye: COMMON NORMALS: Equal, round and reactive pupils present, EOMs intact bilaterally, conjunctivae normal and no scleral icterus CONJUNCTIVA: Yes conjunctivae normal PUPIL: Yes Equal, round and reactive pupils present Neck/C-Spine: COMMON NORMALS: full ROM, no lymphadenopathy, supple, no meningeal signs, no JVD and Thyroid normal THYROID: Thyroid normal Chest: COMMONS NORMALS: normal inspection of the chest and normal palpation of entire chest wall Resp: COMMON NORMALS: normal respiratory effort, No retractions, No use of accessory muscles and clear to auscultation bilaterally AUSCULTATION: clear to auscultation bilaterally Cardio: COMMON NORMALS: no JVD RATE: tachycardic RHYTHM: abnormal rhythm irregularly irregular HEART SOUNDS: no murmurs GI: COMMON NORMALS: Normal to inspection, nondistended, normoactive bowel sounds present, Soft to palpation, non-tender, No hepatosplenomegaly present and no masses PALPATION: Yes Soft to palpation and Yes No hepatosplenomegaly present Neuro: COMMON NORMALS: patient oriented x3, CN's II-XII intact bilaterally, moves all extremities, no focal motor deficits and no sensory deficits noted SENSORIUM/ORIENTATION: Yes alert MENINGEAL SIGNS: Yes no meningeal signs Psych: COMMON NORMALS: mental status grossly normal, Normal thought process present, cooperative, normal affect and speech normal SPEECH: Yes normal speech THOUGHT PROCESS: Normal thought process present Skin: COMMON NORMALS: no rashes or lesions noted GENERAL SKIN EXAM: no rashes or lesions noted Course Vital Signs: Vital signs: Vital Signs Pulse Rate 101 H 10/18/22 17:47 Respiratory Rate 18 10/18/22 17:47 Blood Pressure 114/77 10/18/22 17:47 Pulse Oximetry 96 10/18/22 17:47 Oxygen Delivery Me thod 10/18/22 17:47 MDM - Arrhythmia/Palpitations Medical Decision Making Patient was sent over here from her echo for further evaluation of the high heart rate. Patient states her normal heart rate is about 100 110 bpm however when she was having her echo earlier today she said her heart rate was always up to [address] Bland sent her over here for further evaluation. Patient does have a history of atrial fibrillation, she does not know when she goes into or out of it. Patient is currently on Xarelto. Patient is also on metoprolol. Patient denies any complaints such as chest pain nausea vomiting palpitations shortness of breath diaphoresis. Upon physical exam and lab work such as CBC CMP serial EKGs cardiac enzymes chest x-ray, these showed a delta troponin within normal limits, low magnesium, and EKG showed atrial flutter with RVR for 1 EKG. These findings were discussed with up with the patient. Patient was given 2 g of magnesium IV. Patient will be discharged home to follow-up with her primary care provider or Dr. Bladn within the next week. Patient understands this she may have been in atrial flutter/fibrillation during her echo and she may go in and out of it. Patient's medicine may need to be adjusted Differential Diagnosis Likely palpitations, artial fibrillation and artial flutter; Unlikely anxiety, sinus tachycardia, ventricular premature beats, supraventricular tachycardia or ventricular tachycardia Lab Data 10/18/22 16:44 Radiology Impressions Chest X-Ray 10/18/22 16:14 IMPRESSION: 1. No acute findings. Laboratory Results WBC 10.9 10^3/uL (4.0-10.0) H 10/18/22 16:44 RBC 4.20 10^6/uL (4.1-5.3) 10/18/22 16:44 Hgb 10.4 g/dL (11.5-15.3) L 10/18/22 16:44 Hct 34.8 % (37.0-47.0) L 10/18/22 16:44 MCV 82.9 fl (81-99) 10/18/22 16:44 MCH 24.8 pg (28.0-34.0) L 10/18/22 16:44 MCHC 29.9 g/dL (30.0-36.0) L 10/18/22 16:44 RDW 15.6 % (12.1-15.1) H 10/18/22 16:44 Plt Count 419 10^3/cmm (130-400) H 10/18/22 16:44 MPV 9.6 fL (7.4-10.4) 10/18/22 16:44 Neut % (Auto) 67.3 % 10/18/22 16:44 Lymph % (Auto) 21.2 % 10/18/22 16:44 [place] % (Auto) 7.8 % 10/18/22 16:44 Eos % (Auto) 2.9 % 10/18/22 16:44 Baso % (Auto) 0.5 % 10/18/22 16:44 Neut # (Auto) 7.35 10^3/uL (1.8-7.7) 10/18/22 16:44 Lymph # (Auto) 2.3 10^3/uL (0.8-4.8) 10/18/22 16:44 [place] # (Auto) 0.9 10^3/uL (0.2-0.9) 10/18/22 16:44 Eos # (Auto) 0.3 10^3/uL (0.0-0.8) 10/18/22 16:44 Baso # (Auto) 0.1 10^3/uL (0.0-0.1) 10/18/22 16:44 Nucleated RBC % (auto) 0 % 10/18/22 16:44 Nucleated RBCs # 0.0 /100WBC 10/18/22 16:44 PT 13.10 SECONDS (12.1-14.9) 10/18/22 16:44 INR 0.96 (0.8-1.2) 10/18/22 16:44 Sodium 141 mmol/L (136-145) 10/18/22 16:44 Potassium 4.4 mmol/L (3.5-5.1) 10/18/22 16:44 Chloride 101 mmol/L (98-107) 10/18/22 16:44 Carbon Dioxide 30 mmol/L (22-29) H 10/18/22 16:44 Anion Gap 14.4 (5-19) 10/18/22 16:44 BUN 17 mg/dL (8-23) 10/18/22 16:44 Creatinine 0.7 mg/dL (0.5-0.9) 10/18/22 16:44 GFR Calculation Not Reportable 10/18/22 16:44 Glucose 143 mg/dL (65-115) H 10/18/22 16:44 Calculated Osmolality 296 mOsm/kg (285-295) H 10/18/22 16:44 Calcium 9.2 mg/dL (8.5-10.5) 10/18/22 16:44 Magnesium 1.3 mg/dL (1.7-2.3) L 10/18/22 16:44 Total Bilirubin 0.4 mg/dL (0.15-1.2) 10/18/22 16:44 AST 11 U/L (0-32) 10/18/22 16:44 ALT 6 U/L (0-33) 10/18/22 16:44 Alkaline Phosphatase 120 U/L (35-105) H 10/18/22 16:44 Troponin T Baseline 16 ng/L (0-10) H 10/18/22 16:44 Troponin T 120 Minute 17.41 ng/L (0-10) H 10/18/22 18:44 Delta Troponin T 1.41 ABS# (0-10) 10/18/22 18:44 NT-Pro-B Natriuret Pep 693 pg/mL (0-125) H 10/18/22 16:44 Total Protein 6.7 g/dL (6.6-8.7) 10/18/22 16:44 Albumin 4.4 g/dL (3.5-5.2) 10/18/22 16:44 Globulin 2.3 g/dL (1.3-4.6) 10/18/22 16:44 EKG Data EKG 1: I personally reviewed and interpreted this EKG as follows: EKG interpretation date: 10/18/22 EKG interpretation time: 16:24 Interpretation: EKG showed ventricular rate of 110 bpm, atrial flutter/tachycardia with RVR with aberrant conduction or PVCs, QRS duration 98, QTc 416, no ST-T wave changes Other EKG comments: Chest X-Ray 10/18/22 16:14 IMPRESSION: 1. No acute findings. EKG 2: I personally reviewed and interpreted this EKG as follows: EKG interpretation date: 10/18/22 EKG interpretation time: 18:51 Prior EKG tracings: available for review Interpretation: EKG showed ventricular rate 110 bpm, atrial flutter/tachycardia with RVR, QRS duration 87, QTc 426, Other EKG comments: Chest X-Ray 10/18/22 16:14 IMPRESSION: 1. No acute findings. Discharge Plan Discharge Patient Disposition: Home Clinical Impression: Intermittent atrial fibrillation, Hypomagnesemia Condition: Stable Prescriptions: No Action insulin detemir U-100 100 unit/mL (3 mL) insulin pen 30 unit SUBCUT BID Xarelto 20 mg tablet 20 mg PO DAILY Qty: 90 3RF Rx Instructions: 340B plan metoprolol tartrate 25 mg tablet 25 mg PO BID Qty: 180 3RF atorvastatin 40 mg tablet 40 mg PO BEDTIME lisinopril-hydrochlorothiazide 20-12.5 mg tablet 1 tab PO DAILY allopurinol 100 mg tablet 100 mg PO DAILY metformin 1,000 mg tablet 1,000 mg PO BID Rx Instructions: TAKE WITH MEALS mirtazapine 15 mg tablet 15 mg PO BEDTIME Rx Instructions: PT THINKS SHE TAKES THIS MEDICATION. paroxetine HCl 40 mg tablet 40 mg PO DAILY Trulicity 1.5 mg/0.5 mL pen injector 1.5 mg SUBCUT Q7D Rx Instructions: PT STATES SHE TAKES THIS ON TUESDAYS. Discharge Orders: Discharge ED (Routine); Ordered 10/18/22 Ordered By: Wolf Painter Referrals: Ruben Her NP [Primary Care Provider] - 1 week Patient Instructions: A-fib (Atrial Fibrillation) (ED), Hypomagnesemia (ED) Activity Restrictions/Additional Instructions: Please purchase an [id number] magnesium supplementation take as directed. 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
[2022-10-18 16:59] VITALS: BP 109/83; PULSE 109; RESP 23; O2SAT 98
[2022-10-18 17:18] LABS: Basophils # 0.1 10^3/uL (0.0-0.1); Basophils % 0.5 %; Eosinophils # 0.3 10^3/uL (0.0-0.8); Eosinophils % 2.9 %; Hematocrit 34.8 % (37.0-47.0); Hemoglobin 10.4 g/dL (11.5-15.3); Lymphocytes # 2.3 10^3/uL (0.8-4.8); Lymphocytes % 21.2 %; Mean Corpuscular HGB Conc 29.9 g/dL (30.0-36.0); Mean Corpuscular Hemoglobin 24.8 pg (28.0-34.0); Mean Corpuscular Volume 82.9 fl (81-99); Mean Platelet Volume 9.6 fL (7.4-10.4); Monocytes # 0.9 10^3/uL (0.2-0.9); Monocytes % 7.8 %; Neutrophils # 7.35 10^3/uL (1.8-7.7); Neutrophils % 67.3 %; Nucleated Red Blood Cells % 0 %; Platelet Count 419 10^3/cmm (130-400); Red Cell Distribution Width 15.6 % (12.1-15.1); White Blood Count 10.9 10^3/uL (4.0-10.0)
[2022-10-18 17:33] LABS: Troponin(5th) Baseline 16 ng/L (0-10)
[2022-10-18 17:43] LABS: Alanine Aminotransferase 6 U/L (0-33); Albumin Level 4.4 g/dL (3.5-5.2); Alkaline Phosphatase 120 U/L (35-105); Anion Gap 14.4 (5-19); Aspartate Amino Transferase 11 U/L (0-32); Blood Urea Nitrogen 17 mg/dL (8-23); Calcium 9.2 mg/dL (8.5-10.5); Carbon Dioxide 30 mmol/L (22-29); Chloride 101 mmol/L (98-107); Globulin 2.3 g/dL (1.3-4.6); Glucose 143 mg/dL (65-115); Magnesium 1.3 mg/dL (1.7-2.3); NT Pro B Type Natriuretic Pept 693 pg/mL (0-125); Osmolality Calculated 296 mOsm/kg (285-295); Potassium 4.4 mmol/L (3.5-5.1); Sodium 141 mmol/L (136-145); Total Bilirubin 0.4 mg/dL (0.15-1.2); Total Protein 6.7 g/dL (6.6-8.7)
[2022-10-18 17:47] VITALS: BP 114/77; PULSE 101; RESP 18; O2SAT 96
[2022-10-18 17:47] LABS: INR 0.96 (0.8-1.2)
--- NOTE | 2022-10-18 18:15 | ECG_ITS ---
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 Measurements Intervals [place] Rate: 110 P: 0 WV: 0 QRS: 64 QRSD: 87 T: 44 QT: 361 QTc: 489 Interpretive Statements ATRIAL FLUTTER/TACHYCARDIA WITH RAPID VENTRICULAR RESPONSE POSSIBLE ANTERIOR MYOCARDIAL INFARCTION , PROBABLY OLD [30 ms Q WAVE IN V3/V4, OR R < 0.2 mV IN V4] ABNORMAL RHYTHM ECG Compared to ECG 10/18/2022 16:24:19 Myocardial infarct finding now present Ventricular premature complex(es) no longer present Aberrant conduction of supraventricular beat(s) no longer present Electronically Signed On 10-19-2022 0:24:14 CDT by Micah Bland M.D. [id number]
[2022-10-18] MEDS: magnesium sulfate premix 2 GM/50 ML PIGGYBACK IV (19:19)
[2022-10-18 19:27] LABS: Troponin 5 2HR 17.41 ng/L (0-10)
[2022-10-18 19:28] LABS: Troponin 5 2HR Delta 1.41 ABS# (0-10)
[2022-10-18 20:26] VITALS: BP 103/89; PULSE 109; RESP 18; O2SAT 96
== END 2022-10-18 20:27 | disposition home or self-care (01) ==
PROVIDERS: Emergency Provider Emergency Medicine; PCP Nurse Practitioner Family
DX: I48.91 Unspecified atrial fibrillation (principal); E83.42 Hypomagnesemia; Z79.85 Long-term (current) use of injectable non-insulin antidiabetic drugs; Z79.84 Long term (current) use of oral hypoglycemic drugs; Z79.4 Long term (current) use of insulin; Z86.73 Personal history of transient ischemic attack (TIA), and cerebral infarction without residual deficits; E11.9 Type 2 diabetes mellitus without complications; E78.5 Hyperlipidemia, unspecified; I10 Essential (primary) hypertension
CPT/HCPCS: 36415; 71045; 80053; 83735; 83880; 84484; 85025; 85610; 93005; 93308; 96365; 99285; J3475

== ENCOUNTER → 2023-05-09 12:37 | Outpatient (BNVA) | payer MEDICARE, SELFPAY | PROVIDERS: PCP Nurse Practitioner Family; Referring Provider Nurse Practitioner Family; Visit Provider Surgery | DX: Z12.11 Encounter for screening for malignant neoplasm of colon (principal); D64.9 Anemia, unspecified | CPT/HCPCS: 99024; 99204 ==

== ENCOUNTER 2023-07-18 14:26 | Outpatient (CLI) | payer MEDICARE, SELFPAY ==
[2023-07-18 15:26] LABS: Anion Gap 17.9 (5-19); Blood Urea Nitrogen 26 mg/dL (8-23); Calcium 9.8 mg/dL (8.5-10.5); Carbon Dioxide 24 mmol/L (22-29); Chloride 103 mmol/L (98-107); Glucose 160 mg/dL (65-115); Osmolality Calculated 300 mOsm/kg (285-295); Potassium 3.9 mmol/L (3.5-5.1); Sodium 141 mmol/L (136-145)
== END 2023-07-18 14:27 | disposition home or self-care (01) ==
LOC: LAB 14:29
PROVIDERS: Visit Provider Family Medicine
DX: E87.5 Hyperkalemia (principal)
CPT/HCPCS: 36415; 80048

== ENCOUNTER → 2024-02-29 09:52 | Outpatient (BNVA) | payer MEDICARE, SELFPAY | PROVIDERS: PCP Family Medicine; Visit Provider Family Medicine | DX: E11.9 Type 2 diabetes mellitus without complications (principal); M10.9 Gout, unspecified; D50.9 Iron deficiency anemia, unspecified; I10 Essential (primary) hypertension | CPT/HCPCS: 80053; 82746; 83036; 83550; 84439; 84443; 84550; 85025 ==

== ENCOUNTER 2024-03-12 15:49 | Outpatient (CLI) | payer MEDICARE, SELFPAY ==
--- NOTE | 2024-03-12 15:56 | XR_ITS ---
WS: [id number] Exam: XR abdomen 3V [id number] Date/Time of Exam: 03/12/2024 4:14 PM Reason For Exam: constipation No bowel obstruction or free air. No sign of constipation or fecal impaction. No sign of organ enlarg ement. Moderate degenerative changes of the lower thoracic and lumbar spine with mild levoscoliosis. Hiatal hernia. XR/XR abdomen 3V [id number] IMPRESSION: 1. No acute abdominal process. No constipation identified.
== END 2024-03-12 15:50 | disposition home or self-care (01) ==
LOC: RAD 15:51
PROVIDERS: PCP Family Medicine; Visit Provider Nurse Practitioner
DX: K59.00 Constipation, unspecified (principal); K44.9 Diaphragmatic hernia without obstruction or gangrene; M51.35 Other intervertebral disc degeneration, thoracolumbar region; M41.80 Other forms of scoliosis, site unspecified
CPT/HCPCS: 74021

== ENCOUNTER 2024-03-23 18:49 | Emergency (ER) | payer OTHER, SELFPAY ==
[2024-03-23 18:58] VITALS: BP 104/37; PULSE 156; RESP 16; TEMP 36.8; O2SAT 97; BMI 35.2
--- NOTE | 2024-03-23 19:12 | ECG_ITS ---
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 Measurements Intervals [place] Rate: 148 P: 242 SD: 128 QRS: 27 QRSD: 82 T: 46 QT: 308 QTc: 484 Interpretive Statements ATRIAL FLUTTER WITH RAPID VENTRICULAR RESPONSE LOW QRS VOLTAGE IN PRECORDIAL LEADS [QRS DEFLECTION < 1.0 mV IN CHEST LEADS] MODERATE ST DEPRESSION [0.05+ mV ST DEPRESSION] Compared to ECG 10/18/2022 18:51:50 Low QRS voltage now present ST (T wave) deviation now present Myocardial infarct finding no longer present Electronically Signed On 03-24-2024 11:20:44 CDT by Jonathan Chavarria M.D. [id number]
--- NOTE | 2024-03-23 19:32 | XRR_ITS ---
PROCEDURE INFORMATION: Exam: XR Left Ankle Exam date and time: 03/23/2024 7:43 PM Age: 73 years old Clinical indication: Left; Patient HX: Lt foot/ankle pain post fall TECHNIQUE: Imaging protocol: Radiologic exam of the left ankle. Views: 3 or more views. COMPARISON: No relevant prior studies available. FINDINGS: Bones/joints: No acute fracture or dislocation. Small posterior and plantar calcaneal enthesophytes. Soft tissues: Normal. Vasculature: Scattered vascular calcifications. XR/XR ankle LT min 3V* [id number] IMPRESSION: No acute osseous findings.
--- NOTE | 2024-03-23 19:49 | XRR_ITS ---
PROCEDURE INFORMATION: Exam: XR Left Foot Exam date and time: 03/23/2024 7:54 PM Age: 73 years old Clinical indication: Left; Patient HX: Lt foot/ankle pain post fall TECHNIQUE: Imaging protocol: Radiologic exam of the left foot. Views: 3 or more views. COMPARISON: CR (LOW EXM, ) 03/23/2024 7:43 PM FINDINGS: Bones/joints: Nondisplaced fracture of the base of the 5th metatarsal. No dislocation. Soft tissues: Mild soft tissue swelling along the lateral foot. Vasculature: Scattered vascular calcifications. XR/XR foot LT min 3V* [id number] IMPRESSION: Nondisplaced fracture of the base of the 5th metatarsal.
--- NOTE | 2024-03-23 19:54 | ED_ITS ---
HPI - Extremity Problem General: Chief complaint: Extremity Injury, Lower Stated complaint: fall left leg injury Time Seen by Provider: 03/23/24 19:33 History of Present Illness: 73-year-old female with a history of atr ial fibrillation, obesity, diabetes and gout who presents to the emergency room after she fell and hurt her left foot. She has a bruise on the left lateral foot. No other injuries. She is also having pain in her right foot secondary to gout. Related Data Home Medications Medication Instructions Recorded Confirmed allopurinol 100 mg tablet 100 mg PO DAILY 03/15/20 03/12/24 atorvastatin 40 mg tablet 40 mg PO BEDTIME 03/15/20 03/12/24 dulaglutide 1.5 mg/0.5 mL 1.5 mg SUBCUT Q7D 03/15/20 03/12/24 subcutaneous pen injector (Trulicity) lisinopril 20 1 tab PO DAILY 03/15/20 03/12/24 mg-hydrochlorothiazide 12.5 mg tablet mirtazapine 15 mg tablet 15 mg PO BEDTIME 03/15/20 03/12/24 paroxetine HCl 40 mg tablet 40 mg PO DAILY 03/15/20 03/12/24 insulin detemir U-100 100 unit/mL 30 unit SUBCUT BID 02/16/22 03/12/24 (3 mL) subcutaneous pen albuterol sulfate 2.5 mg/3 mL 2.5 mg inhalation Q4H PRN 09/04/23 03/12/24 (0.083 %) solution for nebulization metformin 500 mg tablet 500 mg PO BID 02/29/24 03/12/24 Previous Rx's Medication Instructions Recorded metoprolol tartrate 25 mg tablet 25 mg PO BID #180 tabs 10/17/22 rivaroxaban 20 mg tablet (Xarelto) 20 mg PO DAILY #90 tabs 06/06/23 omeprazole 20 mg capsule,delayed 20 mg PO DAILY PRN for aid reflux 02/29/24 release #90 caps polyethylene glycol 3350 17 17 g PO DAILY #119 grams 03/12/24 gram/dose oral powder (Miralax) hydrocodone 5 mg-acetaminophen 325 1 tab PO Q8H PRN pain #14 tabs 03/23/24 mg tablet polyethylene glycol 3350 17 17 g PO DAILY #510 grams 03/23/24 gram/dose oral powder (Miralax) prednisone 20 mg tablet 60 mg (3 x 20 mg) PO DAILY #20 tabs 03/23/24 Allergies Allergy/AdvReac Type Severity Reaction Status Date / Time sulfamethoxazole Allergy Intermediate ALGY-Hives Verified 03/12/24 15:11 [From Bactrim] trimethoprim [From Bactrim] Allergy Intermediate ALGY-Hives Verified 03/12/24 15:11 Review of Systems Narrative: Constitutional symptoms: Negative except as documented in HPI. Skin symptoms: Negative except as documented in HPI. Eye symptoms: Negative except as documented in HPI. ENMT symptoms: Negative except as documented in HPI. Respiratory symptoms: Negative except as documented in HPI. Cardiovascular symptoms: Negative except as documented in HPI. Gastrointestinal symptoms: Negative except as documented in HPI. Genitourinary symptoms: Negative except as documented in HPI. Musculoskeletal symptoms: Negative except as documented in HPI. Neurologic symptoms: Negative except as documented in HPI. Psychiatric symptoms: Negative except as documented in HPI. Endocrine symptoms: Negative except as documented in HPI. PFSH ED PFSH: Medical History Neuropathy Moderate major depression BRITTNEY (iron deficiency anemia) Gout GERD (gastroesophageal reflux disease) Atrial flutter Anxiety Hx of blood clots Fatigue Tachycardia Diabetes Weakness Hyperlipidemia DM type 2 (diabetes mellitus, type 2) Hypertension CVA (cerebral vascular accident) Asthma Surgical History History of bilateral carpal tunnel release History of esophagogastroduodenoscopy (EGD) 10 + years Hx of colonoscopy less than 10 years ago Hx of carpal tunnel repair bilateral Family History Mother Stroke Hypertension CAD (coronary artery disease) Diabetes Grandmother CAD (coronary artery disease) Cancer Diabetes Father CAD (coronary artery disease) Family/Other Lung disease Denies family history of Clotting disorder Dementia Chronic kidney disease (CKD) Suicide Anesthesia complication Bleeding disorder Social History Smoking and tobacco/nicotine status: never used tobacco/nicotine Alcohol intake: never Substance/Drug Use: never Physical Exam Narrative: EXAM NARRATIVE: General: Alert, no acute distress. Skin: warm and dry Head: Normocephalic Neck: Trachea midline Eye: Extraocular movements are intact. Ears, nose, mouth and throat: Oral mucosa moist Respiratory: Respirations are non-labored Musculoskeletal: Some bruising on the right mid lateral dorsal foot. Neurological: Alert and oriented, No focal neurological deficit observed. Psychiatric: Cooperative, appropriate mood & affect. Course Vital Signs: Vital signs: Vital Signs Temperature 98.2 F 03/23/24 18:58 Pulse Rate 156 H 03/23/24 18:58 Respiratory Rate 16 03/23/24 18:58 Blood Pressure 104/37 03/23/24 18:58 Pulse Oximetry 97 03/23/24 18:58 Oxygen Delivery Me thod Room Air 03/23/24 18:58 MDM - Extremity (Nontraumatic) Medical Decision Making X-ray of the left foot shows a nondisplaced proximal fifth metatarsal fracture. Films were interpreted by myself the emergency room provider and pending final radiology review. Consultation: I spoke with Dr. Tuttle who is on-call for podiatry. He recommends splinting and following clinic with nonweightbearing. Reexamination: No increased work of breathing. Heart rate is improving. She does not want any further evaluation of that. She is asymptomatic. Splint placed by nursing. Patient is neurovascularly intact. Assessment and plan: Proximal metatarsal fracture. Gout Atrial fibrillation with rapid ventricular response. ?Steroids for gout. IM steroid here. Prednisone taper for home. ? Hydrocodone. Splint placed by nursing. - Discharged home - Discussed plan with patient. Answered any questions. - Evaluation and treatment of this problem were appropriate in the emergency setting. XR interpretation done by ED provider, pending radiology final review Discharge Plan Discharge Patient Disposition: Home Clinical Impression: Fracture of fifth metatarsal bone of left foot, Atrial fibrillation with rapid ventricular response Condition: Stable Prescriptions: New hydrocodone-acetaminophen 5-325 mg tablet 1 tab PO Q8H PRN (Reason: pain) Qty: 14 0RF Rx Instructions: Take 1/2 to 1 tab every 8 hours as needed for pain prednisone 20 mg tablet 60 mg PO DAILY Qty: 20 0RF Rx Instructions: 3 tabs (60 mg) x 3 days. 2 tabs (40 mg) x 3 days. 1 tab (20 mg) x 3 days. 1/2 tab (10 mg) x 4 days Miralax 17 gram/dose powder 17 g PO DAILY Qty: 510 0RF Rx Instructions: Take 1 scoop daily while taking pain medications. No Action insulin detemir U-100 100 unit/mL (3 mL) insulin pen 30 unit SUBCUT BID albuterol sulfate 2.5 mg /3 mL (0.083 %) solution for nebulization 2.5 mg inhalation Q4H PRN polyethylene glycol 3350 [Miralax] 17 gram/dose powder 17 g PO DAILY Qty: 119 0RF metformin 500 mg tablet 500 mg PO BID omeprazole 20 mg capsule,delayed release(DR/EC) 20 mg PO DAILY PRN (Reason: for aid reflux) Qty: 90 1RF metoprolol tartrate 25 mg tablet 25 mg PO BID Qty: 180 3RF Xarelto 20 mg tablet 20 mg PO DAILY Qty: 90 3RF Rx Instructions: 340B plan atorvastatin 40 mg tablet 40 mg PO BEDTIME lisinopril-hydrochlorothiazide 20-12.5 mg tablet 1 tab PO DAILY allopurinol 100 mg tablet 100 mg PO DAILY mirtazapine 15 mg tablet 15 mg PO BEDTIME Rx Instructions: PT THINKS SHE TAKES THIS MEDICATION. paroxetine HCl 40 mg tablet 40 mg PO DAILY Trulicity 1.5 mg/0.5 mL pen injector 1.5 mg SUBCUT Q7D Rx Instructions: PT STATES SHE TAKES THIS ON TUESDAYS. Discharge Orders: Discharge ED (Routine); Ordered 03/23/24 Ordered By: Marilynn Navas Referrals: Sergo Elliott DPM [Physician] - 1-3 days (Please call for an appointment) Oskar Carrera MD [Primary Care Provider] - Discharge Diet: Usual diet Discharge Activity: Limit activity as instructed Patient Instructions: Foot Fracture in Adults (ED), Splint Care (ED), Opioid Safety Activity Restrictions/Additional Instructions: Thank you for choosing [facility] for your healthcare needs today. Please realize this is an emergency room and that we are providing you with a medical screening exam and this may not be complete and all inclusive of all the testing and or work up that you may need to determine your ailment or severity of your illness. You have been screened and evaluated and felt safe for discharge. Health conditions do change or evolve sometimes and as such it is important that you follow up with your Primary Doctor to be re checked, 3-5 days is a general good time frame for follow up. 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
[2024-03-23 20:00] VITALS: PULSE 129; RESP 16; O2SAT 98
[2024-03-23] MEDS: dexamethasone 10 mg/mL INJ IM (20:27)
[2024-03-23] MEDS: HYDROcodone-acetaminophen 5-325 mg Tablet 1 TAB PO (20:27)
[2024-03-23 21:23] VITALS: BP 112/42; PULSE 125; O2SAT 98
== END 2024-03-23 21:26 | disposition home or self-care (01) ==
PROVIDERS: Emergency Provider Emergency Medicine; PCP Family Medicine
DX: S92.352A Displaced fracture of fifth metatarsal bone, left foot, initial encounter for closed fracture (principal); I48.20 Chronic atrial fibrillation, unspecified; Z79.4 Long term (current) use of insulin; Z79.84 Long term (current) use of oral hypoglycemic drugs; Z79.85 Long-term (current) use of injectable non-insulin antidiabetic drugs; E11.40 Type 2 diabetes mellitus with diabetic neuropathy, unspecified; E78.5 Hyperlipidemia, unspecified; I10 Essential (primary) hypertension; Z86.73 Personal history of transient ischemic attack (TIA), and cerebral infarction without residual deficits; W19.XXXA Unspecified fall, initial encounter
CPT/HCPCS: 73610; 73630; 93005; 96372; 99284; J1100

== ENCOUNTER → 2024-03-26 08:52 | Outpatient (BNVA) | payer OTHER, SELFPAY | PROVIDERS: PCP Family Medicine; Visit Provider Podiatrist Foot & Ankle Surgery | DX: S92.902A Unspecified fracture of left foot, initial encounter for closed fracture (principal); E11.9 Type 2 diabetes mellitus without complications; Z79.84 Long term (current) use of oral hypoglycemic drugs; Z79.4 Long term (current) use of insulin; W19.XXXA Unspecified fall, initial encounter | CPT/HCPCS: 73630 ==

== ENCOUNTER 2024-03-26 10:44 | Outpatient (CLI) | payer OTHER, SELFPAY | END 2024-03-26 10:45 | disposition home or self-care (01) | LOC: SPT 10:44 | PROVIDERS: PCP Family Medicine; Visit Provider Podiatrist Foot & Ankle Surgery | DX: S92.352D Displaced fracture of fifth metatarsal bone, left foot, subsequent encounter for fracture with routine healing (principal); W19.XXXD Unspecified fall, subsequent encounter | CPT/HCPCS: 97760; 99204; L4361 ==

== ENCOUNTER → 2024-04-15 08:28 | Outpatient (BNVA) | payer OTHER, SELFPAY | PROVIDERS: PCP Family Medicine; Visit Provider Podiatrist Foot & Ankle Surgery | DX: S92.352A Displaced fracture of fifth metatarsal bone, left foot, initial encounter for closed fracture; W19.XXXA Unspecified fall, initial encounter; E11.9 Type 2 diabetes mellitus without complications; Z79.84 Long term (current) use of oral hypoglycemic drugs; Z79.4 Long term (current) use of insulin | CPT/HCPCS: 73630; 99213 ==

== ENCOUNTER → 2024-04-29 09:05 | Outpatient (BNVA) | payer OTHER, SELFPAY | PROVIDERS: PCP Family Medicine; Visit Provider Podiatrist Foot & Ankle Surgery | DX: M79.672 Pain in left foot (principal); S92.352A Displaced fracture of fifth metatarsal bone, left foot, initial encounter for closed fracture; W17.89XA Other fall from one level to another, initial encounter; E11.9 Type 2 diabetes mellitus without complications; Z79.84 Long term (current) use of oral hypoglycemic drugs; Z79.4 Long term (current) use of insulin | CPT/HCPCS: 73630; 99213 ==

== ENCOUNTER → 2024-05-06 10:30 | Outpatient (BNVA) | payer OTHER, SELFPAY | PROVIDERS: PCP Family Medicine | DX: M10.9 Gout, unspecified (principal) | CPT/HCPCS: 80053 ==

== ENCOUNTER 2024-05-24 12:51 | Observation (INO) | payer OTHER, SELFPAY ==
[2024-05-24] VITALS (39 sets, daily range): BP systolic 125–140; BP diastolic 64–98; PULSE 73–153; RESP 12–28; TEMP 36.7–36.9; O2SAT 85–95; BMI 39.0; BMI 40.7
--- NOTE | 2024-05-24 12:57 | ECG_ITS ---
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 Measurements Intervals [place] Rate: 123 P: 0 IN: 0 QRS: 5 QRSD: 68 T: 11 QT: 224 QTc: 321 Interpretive Statements ATRIAL FIBRILLATION WITH RAPID VENTRICULAR RESPONSE LOW QRS VOLTAGE IN PRECORDIAL LEADS NONSPECIFIC ST & T-WAVE ABNORMALITY ABNORMAL RHYTHM ECG Compared to ECG 03/23/2024 19:12:32 T-wave abnormality now present Electronically Signed On 05-24-2024 15:53:17 SPEED BELT SANDER by Marcial Crane M.D. [id number]
[2024-05-24 13:06] LABS: Basophils # 0.1 10^3/uL (0.0-0.1); Basophils % 0.9 %; Eosinophils # 0.4 10^3/uL (0.0-0.8); Hematocrit 37.5 % (36-47); Lymphocytes # 1.6 10^3/uL (0.8-4.8); Lymphocytes % 18.1 %; Mean Corpuscular HGB Conc 30.4 g/dL (30-55); Mean Corpuscular Hemoglobin 25.9 pg (27-33); Mean Platelet Volume 9.6 fL (7.4-10.4); Monocytes # 0.8 10^3/uL (0.2-0.9); Monocytes % 8.8 %; Neutrophils # 5.99 10^3/uL (1.8-7.7); Nucleated Red Blood Cells % 0 %; Platelet Count 293 10^3/cmm (157-399); Red Blood Count 4.41 10^6/uL (3.85-5.65); Red Cell Distribution Width 14.7 % (12.1-15.1)
--- NOTE | 2024-05-24 13:27 | ED_ITS ---
HPI - Arrhythmia/Palpitations 2 General: Chief Complaint: Arrhythmia/Palpitations Stated Complaint: afib with rvr Time Seen by Provider: 05/24/24 12:52 History of Present Illness: 74-year-old female with a history of hyp ertension, atrial fibrillation, obesity, diabetes, CVA, asthma and gout who presents to the emergency room from urgent care with atrial fibrillation. She actually was at urgent care for gout. She has been having issues with this for 4 weeks now. She says she is been on several rounds of prednisone which have not helped. When she arrived there she was in A-fib with RVR with a rate in the 140s. She says she has not really noticed. She is not had any chest pain. No increased leg swelling. She has noticed some mild exertional dyspnea. No nausea or vomiting. No altered mental status. No focal motor deficits. Related Data Home Medications Medication Instructions Recorded Confirmed atorvastatin 40 mg tablet 40 mg PO BEDTIME 03/15/20 05/24/24 lisinopril 20 1 tab PO DAILY 03/15/20 05/24/24 mg-hydrochlorothiazide 12.5 mg tablet mirtazapine 15 mg tablet 15 mg PO BEDTIME 03/15/20 05/24/24 paroxetine HCl 40 mg tablet 40 mg PO DAILY 03/15/20 05/24/24 insulin detemir U-100 100 unit/mL 30 unit SUBCUT BID 02/16/22 05/24/24 (3 mL) subcutaneous pen albuterol sulfate 2.5 mg/3 mL 2.5 mg inhalation Q4H PRN 09/04/23 05/24/24 (0.083 %) solution for nebulization Shortness Of Breath Or Wheezing metformin 500 mg tablet 500 mg PO BID 02/29/24 05/24/24 polyethylene glycol 3350 17 17 g PO DAILY PRN Constipation 05/24/24 05/24/24 gram/dose oral powder (Miralax) Previous Rx's Medication Instructions Recorded metoprolol tartrate 25 mg tablet 25 mg PO BID #180 tabs 10/17/22 rivaroxaban 20 mg tablet (Xarelto) 20 mg PO DAILY #90 tabs 06/06/23 hydrocodone 5 mg-acetaminophen 325 1 tab PO Q8H PRN pain #14 tabs 03/23/24 mg tablet Boot #1 ea 03/26/24 omeprazole 20 mg capsule,delayed 20 mg PO DAILY PRN for aid reflux 04/16/24 release #90 caps allopurinol 100 mg tablet 100 mg PO DAILY #90 tabs 05/05/24 Allergies Allergy/AdvReac Type Severity Reaction Status Date / Time sulfamethoxazole Allergy Intermediate ALGY-Hives Verified 05/24/24 13:02 [From Bactrim] trimethoprim [From Bactrim] Allergy Intermediate ALGY-Hives Verified 05/24/24 13:02 Review of Systems 2 Narrative: Constitutional symptoms: Negative except as documented in HPI. Skin symptoms: Negative except as documented in HPI. Eye symptoms: Negative except as documented in HPI. ENMT symptoms: Negative except as documented in HPI. Respiratory symptoms: Negative except as documented in HPI. Cardiovascular symptoms: Negative except as documented in HPI. Gastrointestinal symptoms: Negative except as documented in HPI. Genitourinary symptoms: Negative except as documented in HPI. Musculoskeletal symptoms: Negative except as documented in HPI. Neurologic symptoms: Negative except as documented in HPI. Psychiatric symptoms: Negative except as documented in HPI. Endocrine symptoms: Negative except as documented in HPI. PFSH ED 2 PFSH: Medical History Neuropathy Moderate major depression BRITTNEY (iron deficiency anemia) Gout GERD (gastroesophageal reflux disease) Atrial flutter Anxiety Hx of blood clots Fatigue Tachycardia Diabetes Weakness Hyperlipidemia DM type 2 (diabetes mellitus, type 2) Hypertension CVA (cerebral vascular accident) Asthma Surgical History History of bilateral carpal tunnel release History of esophagogastroduodenoscopy (EGD) 10 + years Hx of colonoscopy less than 10 years ago Hx of carpal tunnel repair bilateral Family History Mother Stroke Hypertension CAD (coronary artery disease) Diabetes Grandmother CAD (coronary artery disease) Cancer Diabetes Father CAD (coronary artery disease) Family/Other Lung disease Denies family history of Clotting disorder Dementia Chronic kidney disease (CKD) Suicide Anesthesia complication Bleeding disorder Social History Smoking and tobacco/nicotine status: never used tobacco/nicotine Alcohol intake: never Substance/Drug Use: never Physical Exam 2 Narrative: EXAM NARRATIVE: General: Alert, no acute distress. Skin: Warm, dry. Head: Normocephalic, atraumatic. Neck: Supple, trachea midline. Eye: Extraocular movements are intact. Ears, nose, mouth and throat: mucosa moist. Cardiovascular: Tachycardic, irregularly irregular, Normal peripheral perfusion. Respiratory: Lungs are clear to auscultation, respirations are non-labored, breath sounds are equal, Symmetrical chest wall expansion. Gastrointestinal: Soft, Nontender, Non distended Musculoskeletal: Normal ROM, no deformity. Neurological: Alert and oriented, No focal neurological deficit observed. Psychiatric: Cooperative, appropriate mood & affect. Course 2 Vital Signs: Vital signs: Vital Signs Temperature 98.4 F 05/24/24 19:37 Pulse Rate 87 05/24/24 19:37 Respiratory Rate 20 H 05/24/24 19:37 Blood Pressure 130/70 05/24/24 19:37 Pulse Oximetry 93 05/24/24 19:37 Oxygen Delivery Me thod Room Air 05/24/24 19:37 MDM - Arrhythmia/Palpitations Medical Decision Making Medical decision making: Differential diagnosis including but not limited to and based on the above HPI, review of systems and physical exam: for patient with tachycardia/palpitations: atrial fibrillation with rapid ventricular response. ventricular tachycardia. sinus tachycardia. PVCs. also concern for underlying issues causing tachycardia. Infection, electrolyte abnormalities and thyroid issues Orders placed to evaluate differential diagnosis based on the above differential, HPI and physical exam EKG: Time 1257. Rate 123. Atrial fibrillation with rapid ventricular response, No ST-T changes, no ectopy, This was reviewed and interpreted by myself the ER physician At 1:01 PM Repeat EKG: Time 1515. Rate 116. Atrial fibrillation with rapid ventricular response, No ST-T changes, no ectopy, This was reviewed and interpreted by myself the ER physician at 1520. Very little change from previous EKG done earlier today in the emergency room. Rate has decreased by about 7. Lab Review: Laboratory results were reviewed and interpreted by myself the emergency room physician. No leukocytosis. No anemia. No renal failure. Glucose is borderline low at 59. She is asymptomatic. I reviewed the patient's medical record. Reexamination: Patient has remained in atrial fibrillation. She dropped down into the upper 80s and lower 90s briefly after a diltiazem drip. She then shot back up to 08 01-08 14. She has been started on diltiazem drip and being admitted. She has had no altered mental status. No focal motor deficits. No increased work of breathing. We did discuss her foot pain. Her uric acid is fairly low which does not always correlate but the fact that she is failed multiple treatments with steroids points that this may not be gout. She does have an appointment with podiatry this coming Sunday. Consultation: I spoke with Dr. Mcdaniel who is on-call for the hospitalist service who agrees to admission. Assessment and plan: Atrial fibrillation with rapid ventricular response Foot pain Gout -20 mg IV diltiazem push and a diltiazem drip were initiated - I discussed the patient with the hospitalist on-call who is admitting the patient. - Discussed findings and plan with patient. Answered any questions. - All laboratory values were reviewed and interpreted personally by myself, the ER physician - All imaging was reviewed and interpreted personally by myself, the ER physician. - Evaluation and treatment of this problem were appropriate in the emergency setting Lab Data 05/24/24 12:41 05/24/24 12:41 Radiology Impressions Foot X-Ray 05/24/24 15:26 IMPRESSION: No acute fracture or dislocation. Chest X-Ray 05/24/24 15:27 IMPRESSION: Reticular opacities in the retrocardiac region that might represent atelectasis versus infiltrates. Laboratory Results WBC 8.80 10^3/uL (3.29-11.43) 05/24/24 12:41 RBC 4.41 10^6/uL (3.85-5.65) 05/24/24 12:41 Hgb 11.40 g/dL (11.27-16.99) 05/24/24 12:41 Hct 37.5 % (36-47) 05/24/24 12:41 MCV 85.0 fl (85-98) 05/24/24 12:41 MCH 25.9 pg (27-33) L 05/24/24 12:41 MCHC 30.4 g/dL (30-55) 05/24/24 12:41 RDW 14.7 % (12.1-15.1) 05/24/24 12:41 Plt Count 293 10^3/cmm (157-399) 05/24/24 12:41 MPV 9.6 fL (7.4-10.4) 05/24/24 12:41 Neut % (Auto) 68.0 % 05/24/24 12:41 Lymph % (Auto) 18.1 % 05/24/24 12:41 Wetzel % (Auto) 8.8 % 05/24/24 12:41 Eos % (Auto) 4.0 % 05/24/24 12:41 Baso % (Auto) 0.9 % 05/24/24 12:41 Neut # (Auto) 5.99 10^3/uL (1.8-7.7) 05/24/24 12:41 Lymph # (Auto) 1.6 10^3/uL (0.8-4.8) 05/24/24 12:41 Wetzel # (Auto) 0.8 10^3/uL (0.2-0.9) 05/24/24 12:41 Eos # (Auto) 0.4 10^3/uL (0.0-0.8) 05/24/24 12:41 Baso # (Auto) 0.1 10^3/uL (0.0-0.1) 05/24/24 12:41 Nucleated RBC % (auto) 0 % 05/24/24 12:41 Nucleated RBCs # 0.0 /100WBC 05/24/24 12:41 Sodium 139 mmol/L (136-145) 05/24/24 12:41 Potassium 3.7 mmol/L (3.5-5.1) 05/24/24 12:41 Chloride 100 mmol/L (98-107) 05/24/24 12:41 Carbon Dioxide 28 mmol/L (22-29) 05/24/24 12:41 Anion Gap 14.7 (5-19) 05/24/24 12:41 BUN 12 mg/dL (8-23) 05/24/24 12:41 Creatinine 0.8 mg/dL (0.5-0.9) 05/24/24 12:41 GFR Calculation Not Reportable 05/24/24 12:41 Glucose 59 mg/dL (65-115) L 05/24/24 12:41 POC Glucose 59 mg/dL (70-110) L 05/24/24 13:46 Calculated Osmolality 286 mOsm/kg (285-295) 05/24/24 12:41 Uric Acid 5.4 mg/dL (2.4-5.7) 05/24/24 12:41 Calcium 9.2 mg/dL (8.5-10.5) 05/24/24 12:41 Magnesium 1.7 mg/dL (1.7-2.3) 05/24/24 12:41 Total Bilirubin 0.9 mg/dL (0.15-1.2) 05/24/24 12:41 AST 14 U/L (0-32) 05/24/24 12:41 ALT 11 U/L (0-33) 05/24/24 12:41 Alkaline Phosphatase 155 U/L (35-105) H 05/24/24 12:41 Troponin T Baseline 23 ng/L (0-10) H 05/24/24 12:41 NT-Pro-B Natriuret Pep 681 pg/mL (0-125) H 05/24/24 12:41 Total Protein 6.2 g/dL (6.6-8.7) L 05/24/24 12:41 Albumin 4.2 g/dL (3.5-5.2) 05/24/24 12:41 Globulin 2.0 g/dL (1.3-4.6) 05/24/24 12:41 TSH 1.04 uIU/mL (0.27-4.20) 05/24/24 12:41 Urine Color Yellow (Yellow) 05/24/24 13:46 Urine Appearance Clear (CLEAR) 05/24/24 13:46 Urine pH 7.5 (5-7) 05/24/24 13:46 Ur Specific [place] 1.014 (1.005-1.030) 05/24/24 13:46 Urine Protein Negative (Negative) 05/24/24 13:46 Urine Glucose (UA) Negative (Normal) 05/24/24 13:46 Urine Ketones Negative (Negative) 05/24/24 13:46 Urine Blood Negative (Negative) 05/24/24 13:46 Urine Nitrate Negative (Negative) 05/24/24 13:46 Urine Bilirubin Negative (Negative) 05/24/24 13:46 Urine Urobilinogen 1.0 mg/dL (Negative) 05/24/24 13:46 Ur Leukocyte Esterase Trace (Negative) A 05/24/24 13:46 Urine RBC 0-2 /hpf (0-2) 05/24/24 13:46 Urine WBC 0-5 /hpf (0-5) 05/24/24 13:46 Ur Squamous Epith Cells 6-10 /hpf (0-5) 05/24/24 13:46 Amorphous Sediment Not Reportable 05/24/24 13:46 Urine Bacteria None seen /hpf (NONE) 05/24/24 13:46 Hyaline Casts 0-4 /lpf H 05/24/24 13:46 Coronavirus (PCR) Negative (Negative) 05/24/24 13:27 Influenza A (PCR) Negative (Negative) 05/24/24 13:27 Influenza Type B (PCR) Negative (Negative) 05/24/24 13:27 RSV (PCR) Negative (Negative) 05/24/24 13:27 No radiology studies performed this visit Discharge Plan Discharge Patient Disposition: Admitted As Inpatient Admit Provider: Lonnie Mcdaniel Clinical Impression: Atrial fibrillation with rapid ventricular response, Foot pain, History of gout Condition: Stable Coding Level of Care Code ED Extracorporeal Circulation Specialist for Compa Blount
[2024-05-24 13:31] LABS: Alanine Aminotransferase 11 U/L (0-33); Albumin Level 4.2 g/dL (3.5-5.2); Alkaline Phosphatase 155 U/L (35-105); Anion Gap 14.7 (5-19); Aspartate Amino Transferase 14 U/L (0-32); Blood Urea Nitrogen 12 mg/dL (8-23); Calcium 9.2 mg/dL (8.5-10.5); Carbon Dioxide 28 mmol/L (22-29); Chloride 100 mmol/L (98-107); Creatinine Clr Calc Pharmacy 62.8696; Glucose 59 mg/dL (65-115); Magnesium 1.7 mg/dL (1.7-2.3); Osmolality Calculated 286 mOsm/kg (285-295); Potassium 3.7 mmol/L (3.5-5.1); Sodium 139 mmol/L (136-145); Total Bilirubin 0.9 mg/dL (0.15-1.2); Total Protein 6.2 g/dL (6.6-8.7); Uric Acid 5.4 mg/dL (2.4-5.7)
[2024-05-24 13:32] LABS: Troponin(5th) Baseline 23 ng/L (0-10)
[2024-05-24 13:51] LABS: Glucose Point of Care 59 mg/dL (70-110)
[2024-05-24 14:03] LABS: NT Pro B Type Natriuretic Pept 681 pg/mL (0-125); Thyroid Stimulating Hormone 1.04 uIU/mL (0.27-4.20)
[2024-05-24] MEDS: methylPREDNISolone sod succ 125 mg/2 mL INJ IVP (14:06)
[2024-05-24] MEDS: dilTIAZem 5 mg/mL SDV 5 mL 20 MG IVP (14:06)
[2024-05-24 14:11] LABS: Covid PCR NEGATIVE (Negative); Influenza A NEGATIVE (Negative); Influenza B NEGATIVE (Negative); Respiratory Syncytial Virus Ce NEGATIVE (Negative)
[2024-05-24 14:19] LABS: Bilirubin Urine Negative (Negative); Blood Urine Negative (Negative); Glucose Urine UA Negative (Normal); Ketones Urine Negative (Negative); Leukocyte Esterase Urine Trace (Negative); Nitrate Urine Negative (Negative); Protein Urine Negative (Negative); Specific Gravity, Urine 1.014 (1.005-1.030); Urine Appearance Clear (CLEAR); Urine Color Yellow (Yellow); pH Urine 7.5 (5-7)
[2024-05-24 14:22] LABS: Bacteria Urine None Seen /hpf; Hyaline Casts Urine 0-4 /lpf; RBC Urine 0-2 /hpf (0-2); WBC Urine 0-5 /hpf (0-5)
[2024-05-24] MEDS: dilTIAZem 100 MG in sodium chloride 0.9% (add-van) 100 ML IV (14:53)
--- NOTE | 2024-05-24 14:57 | ECG_ITS ---
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 Measurements Intervals [place] Rate: 116 P: 0 SC: 0 QRS: 1 QRSD: 70 T: 15 QT: 223 QTc: 310 Interpretive Statements ATRIAL FIBRILLATION WITH RAPID VENTRICULAR RESPONSE LOW QRS VOLTAGE IN PRECORDIAL LEADS [QRS DEFLECTION < 1.0 mV IN CHEST LEADS] NONSPECIFIC ST & T-WAVE ABNORMALITY ABNORMAL RHYTHM ECG Compared to ECG 05/24/2024 12:57:54 No significant changes Electronically Signed On 05-24-2024 16:00:53 SECURITY SCREENER by Marcial Crane M.D. [email or web address]
[2024-05-24 15:15] LABS: Glucose Point of Care 97 mg/dL (70-110)
[2024-05-24 15:21] LABS: Troponin 5 2HR 21.36 ng/L (0-10); Troponin 5 2HR Delta -1.64 ABS# (0-10)
--- NOTE | 2024-05-24 15:26 | XRR_ITS ---
PROCEDURE INFORMATION: Exam: XR Right Foot Exam date and time: 05/24/2024 3:37 PM Age: 74 years old Clinical indication: Pain; Foot; Right; Additional info: Foot pain TECHNIQUE: Imaging protocol: Radiologic exam of the right foot. Views: 3 or more views. COMPARISON: No relevant prior studies available. FINDINGS: Bones/joints: Inferior calcaneal spur. No ankle joint effusion. No acute fracture or dislocation. Soft tissues: Soft tissue swelling dorsum of the foot. Vasculature: Vascular calcifications. XR/XR foot RT min 3V* [id number] IMPRESSION: No acute fracture or dislocation.
--- NOTE | 2024-05-24 15:27 | XRR_ITS ---
PROCEDURE INFORMATION: Exam: XR Chest Exam date and time: 05/24/2024 3:32 PM Age: 74 years old Clinical indication: Other: Palpitations TECHNIQUE: Imaging protocol: Radiologic exam of the chest. Views: 1 view. COMPARISON: CR XR chest 1V portable [id number] 10/18/2022 4:31 PM FINDINGS: Lungs: Reticular opacities in the retrocardiac region that might represent atelectasis versus infiltrates. Calcified granulomas in the right lung base. Pleural spaces: Unremarkable. No pleural effusion. No pneumothorax. Heart/Mediastinum: There is mild cardiomegaly. Vasculature: Unfolding thoracic aorta. Bones/joints: Post right rotator cuff repair. Mild degenerative disease bilateral acromioclavicular joints. XR/XR chest 1V portable [id number] IMPRESSION: Reticular opacities in the retrocardiac region that might represent atelectasis versus infiltrates.
--- NOTE | 2024-05-24 15:31 | P.HP_ITS ---
Providers/Chief Complaint 2 Admitting Physician: Lonnie Mcdaniel Primary Care Provider: Oskar Carrera MD Chief Complaint: afib with rvr History of Present Illness Pleasant 74-year-old lady was directed to the ER from urgent care clinic due to elevated heart rate. She has an appointment with podiatry on Sunday due to dealing with unimproving gout for which she has taken prednisone, he is on allopurinol. In ER her heart rates are found to be as high as 130s-140s. Additionally she is hypoglycemic blood glucose of 59. She also reports a rash under her breasts and armpits. Review of Systems 2 Const: Denies: fever(s), chills, body aches or malaise ENMT: Denies: throat pain Card: Denies: chest pain, edema, pre-syncope or dyspnea on exertion Resp: Denies: dyspnea, productive cough, change in phlegm color or hemoptysis GI: Denies: abdominal pain, nausea, vomiting, diarrhea, constipation, hematochezia or melena : Denies: flank pain, urinary frequency or hematuria Musc: Reports: other (Right foot pain); Denies: back pain, joint swelling or joint redness Skin/Breast: Reports: rash Medications/Allergies Home Medications Medication Instructions Recorded Confirmed Last Taken Type atorvastatin 40 mg tablet 40 mg PO BEDTIME 03/15/20 05/24/24 05/23/24 History lisinopril 20 1 tab PO DAILY 03/15/20 05/24/24 05/23/24 History mg-hydrochlorothiazide 12.5 mg tablet mirtazapine 15 mg tablet 15 mg PO BEDTIME 03/15/20 05/24/24 05/23/24 History paroxetine HCl 40 mg tablet 40 mg PO DAILY 03/15/20 05/24/24 05/23/24 History insulin detemir U-100 100 unit/mL 30 unit SUBCUT BID 02/16/22 05/24/24 05/23/24 History (3 mL) subcutaneous pen metoprolol tartrate 25 mg tablet 25 mg PO BID #180 tabs 10/17/22 05/24/24 05/23/24 Rx rivaroxaban 20 mg tablet (Xarelto) 20 mg PO DAILY #90 tabs 06/06/23 05/24/24 05/23/24 Rx albuterol sulfate 2.5 mg/3 mL 2.5 mg inhalation Q4H PRN 09/04/23 05/24/24 Unknown History (0.083 %) solution for nebulization Shortness Of Breath Or Wheezing metformin 500 mg tablet 500 mg PO BID 02/29/24 05/24/24 05/23/24 History hydrocodone 5 mg-acetaminophen 325 1 tab PO Q8H PRN pain #14 tabs 03/23/24 05/24/24 05/23/24 Rx mg tablet Boot #1 ea 03/26/24 05/24/24 Unknown Rx omeprazole 20 mg capsule,delayed 20 mg PO DAILY PRN for aid reflux 04/16/24 05/24/24 05/23/24 Rx release #90 caps allopurinol 100 mg tablet 100 mg PO DAILY #90 tabs 05/05/24 05/24/24 05/23/24 Rx polyethylene glycol 3350 17 17 g PO DAILY PRN Constipation 05/24/24 05/24/24 Unknown History gram/dose oral powder (Miralax) Allergies Allergy/AdvReac Type Severity Reaction Status Date / Time sulfamethoxazole Allergy Intermediate ALGY-Hives Verified 05/24/24 13:02 [From Bactrim] trimethoprim [From Bactrim] Allergy Intermediate ALGY-Hives Verified 05/24/24 13:02 PFSH Acute 2 PFSH: Medical History Neuropathy Moderate major depression BRITTNEY (iron deficiency anemia) Gout GERD (gastroesophageal reflux disease) Atrial flutter Anxiety Hx of blood clots Fatigue Tachycardia Diabetes Weakness Hyperlipidemia DM type 2 (diabetes mellitus, type 2) Hypertension CVA (cerebral vascular accident) Asthma Surgical History History of bilateral carpal tunnel release History of esophagogastroduodenoscopy (EGD) 10 + years Hx of colonoscopy less than 10 years ago Hx of carpal tunnel repair bilateral Family History Mother Stroke Hypertension CAD (coronary artery disease) Diabetes Grandmother CAD (coronary artery disease) Cancer Diabetes Father CAD (coronary artery disease) Family/Other Lung disease Denies family history of Clotting disorder Dementia Chronic kidney disease (CKD) Suicide Anesthesia complication Bleeding disorder Social History Smoking and tobacco/nicotine status: never used tobacco/nicotine Alcohol intake: never Substance/Drug Use: never Vitals/I&O/Wt Last Vital Signs Temp 98.0 F 05/24/24 12:56 Pulse 104 H 05/24/24 15:30 Resp 16 05/24/24 15:30 BP 125/64 05/24/24 15:30 Pulse Ox 93 05/24/24 15:30 O2 Del Method Room Air 05/24/24 15:30 Weight last 48 hrs Weight 90.718 kg Physical Exam 2 Const: COMMON NORMALS: patient oriented x3 and alert GENERAL APPEARANCE: c ooperative ORIENTATION/CONSCIOUSNESS: Yes awake HENMT: COMMON NORMALS: oropharynx normal Neck/C-Spine: COMMON NORMALS: no JVD Resp: COMMON NORMALS: normal respiratory effort and clear to auscultation bilaterally AUSCULTATION: clear to auscultation bilaterally Cardio: COMMON NORMALS: no JVD, regular rhythm, S1 normal heart sound present, S2 normal heart sound present and No murmurs present (Cardio) RATE: t achycardic RHYTHM: abnormal rhythm HEART SOUNDS: S1 normal heart sound present and S2 normal heart sound present GI: COMMON NORMALS: Normal to inspection, nondistended, normoactive bowel sounds present, Soft to palpation and non-tender PALPATION: Yes Soft to palpation Extremity: COMMON NORMALS: no joint enlargement and no pedal edema OTHER: R hallux w mild erythema Neuro: COMMON NORMALS: patient oriented x3 and moves all extremities S ENSORIUM/ORIENTATION: Yes alert Skin: COMMON NORMALS: no rashes or lesions noted GENERAL SKIN EXAM: no rashes or lesions noted Data 05/24/24 12:41 05/24/24 12:41 A&P Assessment and plan (1) Atrial fibrillation with rapid ventricular response: A-fib with RVR rate in the 140s. On metoprolol home. Did not respond to Cardizem push of 20 mg IV. Started on Cardizem drip. Reviewed vitals, CBC, CMP, troponin, TSH, UA, respiratory viral panel, ER note, discussed with ER provider. On my review of EKG atrial fibrillation with RVR, low QRS in precordial leads, specific ST-T wave abnormality. Pending official read. Reviewed potassium: 3.7, will give 20 mill colons, try to maintain potassium around 4, recheck chemistry. Reviewed magnesium, 1.7, will give 2 g magnesium, recheck magnesium. Complete troponin EKG series to assess for ischemia. Increase metoprolol dose to 50 mg twice daily. Monitor telemetry. Wean off Cardizem drip. Monitor for risk of hypotension, bradycardia. Continue Xarelto. Chest x-ray is obtained and pending, without acute findings on my review, pending official read. (2) Hypoglycemia: Hypoglycemia 59 patient not have breakfast or lunch. Requested dinner. Received orange juice, sugar improved from 59-97. Will follow-up blood glucose. Hold this evening detemir for now. Sliding scale insulin. Hypoglycemia protocol. Monitor POC glucose. (3) Intertrigo: Add nystatin cream. Plan Gout: Continue ibuprofen, allopurinol. Follow-up with podiatry as per appointment on Sunday. Follow-up foot x-ray. Neuropathy MD: Continue mirtazapine, paroxetine BRITTNEY GERD: Continue PPI HLD: Continue statin Asthma not in exacerbation Attestations 2 Medical Necessity Statement*: Place in observation for additional assessment management of A-fib with RVR not responsive to initial management. and High MDM includes amount and/or complexity of data reviewed/ordered [ previous or external records, resulted lab(s)/test(s), ordered lab(s)/test(s), independent test interpretation and other healthcare professional discussion] and described risk of complication, morbidity or mortality of management as documented Diagnoses Atrial fibrillation with rapid ventricular response I48.91 Hypoglycemia E16.2 Intertrigo L30.4
[2024-05-24] MEDS: magnesium sulfate premix 2 GM/50 ML PIGGYBACK IV (17:06)
[2024-05-24] MEDS: metoprolol tartrate 25 mg Tablet 50 MG PO (17:07)
[2024-05-24] MEDS: potassium chloride ER 20 mEq Tablet PO (17:07)
[2024-05-24] MEDS: HYDROcodone-acetaminophen 5-325 mg Tablet 1 TAB PO (17:13)
--- NOTE | 2024-05-24 18:16 | PC.NURSE ---
$254 from patient's wallet placed in the pyxis in a biohazard bag locked with tamper proof tape.
--- NOTE | 2024-05-24 18:57 | ECG_ITS ---
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 Measurements Intervals [place] Rate: 73 P: 0 [place]: 0 QRS: 12 QRSD: 82 T: 34 QT: 417 QTc: 460 Interpretive Statements ATRIAL FLUTTER/TACHYCARDIA LOW QRS VOLTAGE IN PRECORDIAL LEADS MINIMAL ST DEPRESSION [0 ABNORMAL RHYTHM ECG Compared to ECG 05/24/2024 15:15:00 ST (T wave) deviation now present Atrial fibrillation no longer present T-wave abnormality no longer present Electronically Signed On 05-25-2024 14:16:07 DIRECTOR OF EVENT MANAGEMENT by Marcial Crane M.D. [email or web address]
[2024-05-24] MEDS: nystatin cream 30 gm 1 APPLIC TOPICAL (19:01)
[2024-05-24 19:34] LABS: Troponin 5 6HR 17.17 ng/L (0-10); Troponin 5 6HR Delta -5.83 ng/L (0-12)
[2024-05-24] MEDS: atorvastatin 40 mg Tablet PO (20:27)
[2024-05-24] MEDS: mirtazapine 15 mg Tablet PO (20:27)
[2024-05-25] VITALS (57 sets, daily range): BP systolic 106–132; BP diastolic 59–80; PULSE 72–122; RESP 11–27; TEMP 37.1; O2SAT 87–98
[2024-05-25] MEDS: albuterol 2.5 mg/3 mL Neb INHALATION (01:41)
[2024-05-25 03:51] LABS: Basophils % 0.3 %; Hematocrit 35.3 % (36-47); Lymphocytes # 0.5 10^3/uL (0.8-4.8); Lymphocytes % 6.1 %; Mean Corpuscular HGB Conc 30.3 g/dL (30-55); Mean Corpuscular Hemoglobin 26.1 pg (27-33); Mean Corpuscular Volume 86.1 fl (85-98); Mean Platelet Volume 9.9 fL (7.4-10.4); Monocytes # 0.1 10^3/uL (0.2-0.9); Monocytes % 1.5 %; Neutrophils # 7.25 10^3/uL (1.8-7.7); Neutrophils % 91.7 %; Nucleated Red Blood Cells % 0 %; Platelet Count 266 10^3/cmm (157-399); Red Cell Distribution Width 14.8 % (12.1-15.1)
[2024-05-25 04:12] LABS: Anion Gap 14.8 (5-19); Blood Urea Nitrogen 19 mg/dL (8-23); Calcium 8.8 mg/dL (8.5-10.5); Carbon Dioxide 25 mmol/L (22-29); Chloride 101 mmol/L (98-107); Glucose 405 mg/dL (65-115); Magnesium 2.1 mg/dL (1.7-2.3); Osmolality Calculated 301 mOsm/kg (285-295); Potassium 4.8 mmol/L (3.5-5.1); Sodium 136 mmol/L (136-145)
[2024-05-25] MEDS: rivaroxaban 10 mg Tablet 20 MG PO (08:03)
[2024-05-25] MEDS: PARoxetine 20 mg Tablet 40 MG PO (08:03)
[2024-05-25] MEDS: allopurinol 100 mg Tablet PO (08:03)
[2024-05-25] MEDS: nystatin cream 30 gm 1 APPLIC TOPICAL (08:03)
[2024-05-25] MEDS: hydroCHLOROthiazide 25 mg Tablet 12.5 MG PO (08:03)
[2024-05-25] MEDS: metoprolol tartrate 25 mg Tablet 50 MG PO (08:10)
[2024-05-25 11:32] LABS: Glucose Point of Care 471 mg/dL (70-110)
[2024-05-25] MEDS: insulin lispro 100 unit/1 mL SUBCUT (11:32)
--- NOTE | 2024-05-25 13:39 | PM.DCS ---
Discharge Providers Date of Admission: 05/24/24 14:40 Date of Discharge: May 25, 2024 Attending Provider at Admission: Lonnie cMdaniel Attending Provider at Discharge: Lonnie Mcdaniel Primary Care Provider: Oskar Carrera MD Diagnoses at Discharge Discharge Diagnosis (1) Atrial fibrillation with rapid ventricular response: Status: Acute (2) Hypoglycemia: Status: Acute (3) Intertrigo: Status: Acute Reason for Visit Reason for Visit: afib with rvr Brief History: Pleasant 74-year-old lady was directed to the ER from urgent care clinic due to elevated heart rate. She has an appointment with podiatry on Sunday due to dealing with unimproving gout for which she has taken prednisone, he is on allopurinol. In ER her heart rates are found to be as high as 130s-140s. Additionally she is hypoglycemic blood glucose of 59. She also reports a rash under her breasts and armpits. Hospital Course Hospital Course Her heart rate gradually improved with increase of metoprolol dose to 50 mg twice daily and she weaned off Cardizem drip. Heart rates remained controlled even with ambulation. She is feeling well today, and feels ready to return home. Her right foot is not bothering her unless she steps on it. Foot x-ray showed no fracture. She has an appointment to follow-up with podiatry for additional assessment on Sunday. She is prescribed nystatin cream for candidal intertrigo under her breasts and armpits. On presentation she also had an episode of hypoglycemia after she had taken her insulin and did not eat breakfast or lunch. Hypoglycemia has improved. Her nighttime dose of insulin was held. We discussed regarding risks of hypoglycemia, paying attention to it and strategies to avoid it. Physical Exam Const: COMMON NORMALS: patient oriented x3 and alert GENERAL APPEARANCE: cooperative ORIENTATION/CONSCIOUSNESS: Yes awake HENMT: COMMON NORMALS: oropharynx normal Neck/C-Spine: COMMON NORMALS: no JVD Resp: COMMON NORMALS: normal respiratory effort and clear to auscultation bilaterally AUSCULTATION: clear to auscultation bilaterally Cardio: COMMON NORMALS: no JVD, regular rhythm, S1 normal heart sound present, S2 normal heart sound present and No murmurs present (Cardio) RHYTHM: regular rhythm HEART SOUNDS: S1 normal heart sound present and S2 normal heart sound present GI: COMMON NORMALS: Normal to inspection, nondistended, normoactive bowel sounds present, Soft to palpation and non-tender PALPATION: Yes Soft to palpation Extremity: COMMON NORMALS: no joint enlargement and no pedal edema Neuro: COMMON NORMALS: patient oriented x3 and moves all extremities SENSORIUM/ORIENTATION: Yes alert Skin: COMMON NORMALS: no rashes or lesions noted GENERAL SKIN EXAM: no rashes or lesions noted OTHER: R foot: No erythema or swelling. Discharge Data Studies Completed and Pending Completed Studies During Hospitalization Category Date Time Status XR chest 1V portable [id number] Stat Exams 05/24/24 15:27 Completed XR foot RT min 3V* [id number] Routine Exams 05/24/24 15:26 Completed Pending at discharge Category Date Time Status Basic Metabolic Panel AM LABS Lab 05/26/24 04:00 Ordered Basic Metabolic Panel AM LABS Lab 05/27/24 04:00 Ordered Complete Blood Count w/Auto AM LABS Lab 05/26/24 04:00 Ordered Complete Blood Count w/Auto AM LABS Lab 05/27/24 04:00 Ordered Radiology Impressions Foot X-Ray 05/24/24 15:26 IMPRESSION: No acute fracture or dislocation. Chest X-Ray 05/24/24 15:27 IMPRESSION: Reticular opacities in the retrocardiac region that might represent atelectasis versus infiltrates. Laboratory Results WBC 7.90 10^3/uL (3.29-11.43) 05/25/24 02:57 RBC 4.10 10^6/uL (3.85-5.65) 05/25/24 02:57 Hgb 10.70 g/dL (11.27-16.99) L 05/25/24 02:57 Hct 35.3 % (36-47) L 05/25/24 02:57 MCV 86.1 fl (85-98) 05/25/24 02:57 MCH 26.1 pg (27-33) L 05/25/24 02:57 MCHC 30.3 g/dL (30-55) 05/25/24 02:57 RDW 14.8 % (12.1-15.1) 05/25/24 02:57 Plt Count 266 10^3/cmm (157-399) 05/25/24 02:57 MPV 9.9 fL (7.4-10.4) 05/25/24 02:57 Neut % (Auto) 91.7 % 05/25/24 02:57 Lymph % (Auto) 6.1 % 05/25/24 02:57 [place] % (Auto) 1.5 % 05/25/24 02:57 Eos % (Auto) 0.0 % 05/25/24 02:57 Baso % (Auto) 0.3 % 05/25/24 02:57 Neut # (Auto) 7.25 10^3/uL (1.8-7.7) 05/25/24 02:57 Lymph # (Auto) 0.5 10^3/uL (0.8-4.8) L 05/25/24 02:57 [place] # (Auto) 0.1 10^3/uL (0.2-0.9) L 05/25/24 02:57 Eos # (Auto) 0.0 10^3/uL (0.0-0.8) 05/25/24 02:57 Baso # (Auto) 0.0 10^3/uL (0.0-0.1) 05/25/24 02:57 Nucleated RBC % (auto) 0 % 05/25/24 02:57 Nucleated RBCs # 0.0 /100WBC 05/25/24 02:57 Sodium 136 mmol/L (136-145) 05/25/24 02:57 Potassium 4.8 mmol/L (3.5-5.1) 05/25/24 02:57 Chloride 101 mmol/L (98-107) 05/25/24 02:57 Carbon Dioxide 25 mmol/L (22-29) 05/25/24 02:57 Anion Gap 14.8 (5-19) 05/25/24 02:57 BUN 19 mg/dL (8-23) 05/25/24 02:57 Creatinine 0.9 mg/dL (0.5-0.9) 05/25/24 02:57 GFR Calculation Not Reportable 05/25/24 02:57 Glucose 405 mg/dL (65-115) H 05/25/24 02:57 POC Glucose 471 mg/dL (70-110) H 05/25/24 11:29 Calculated Osmolality 301 mOsm/kg (285-295) H 05/25/24 02:57 Uric Acid 5.4 mg/dL (2.4-5.7) 05/24/24 12:41 Calcium 8.8 mg/dL (8.5-10.5) 05/25/24 02:57 Magnesium 2.1 mg/dL (1.7-2.3) 05/25/24 02:57 Total Bilirubin 0.9 mg/dL (0.15-1.2) 05/24/24 12:41 AST 14 U/L (0-32) 05/24/24 12:41 ALT 11 U/L (0-33) 05/24/24 12:41 Alkaline Phosphatase 155 U/L (35-105) H 05/24/24 12:41 Troponin T Baseline 23 ng/L (0-10) H 05/24/24 12:41 Troponin T 120 Minute 21.36 ng/L (0-10) H 05/24/24 14:55 Delta Troponin T -1.64 ABS# (0-10) L 05/24/24 14:55 Troponin T Hi Sens 6Hr 17.17 ng/L (0-10) H 05/24/24 18:58 Troponin T Hi Sens 6Hr Delta -5.83 ng/L (0-12) L 05/24/24 18:58 NT-Pro-B Natriuret Pep 681 pg/mL (0-125) H 05/24/24 12:41 Total Protein 6.2 g/dL (6.6-8.7) L 05/24/24 12:41 Albumin 4.2 g/dL (3.5-5.2) 05/24/24 12:41 Globulin 2.0 g/dL (1.3-4.6) 05/24/24 12:41 TSH 1.04 uIU/mL (0.27-4.20) 05/24/24 12:41 Urine Color Yellow (Yellow) 05/24/24 13:46 Urine Appearance Clear (CLEAR) 05/24/24 13:46 Urine pH 7.5 (5-7) 05/24/24 13:46 Ur Specific [place] 1.014 (1.005-1.030) 05/24/24 13:46 Urine Protein Negative (Negative) 05/24/24 13:46 Urine Glucose (UA) Negative (Normal) 05/24/24 13:46 Urine Ketones Negative (Negative) 05/24/24 13:46 Urine Blood Negative (Negative) 05/24/24 13:46 Urine Nitrate Negative (Negative) 05/24/24 13:46 Urine Bilirubin Negative (Negative) 05/24/24 13:46 Urine Urobilinogen 1.0 mg/dL (Negative) 05/24/24 13:46 Ur Leukocyte Esterase Trace (Negative) A 05/24/24 13:46 Urine RBC 0-2 /hpf (0-2) 05/24/24 13:46 Urine WBC 0-5 /hpf (0-5) 05/24/24 13:46 Ur Squamous Epith Cells 6-10 /hpf (0-5) 05/24/24 13:46 Amorphous Sediment Not Reportable 05/24/24 13:46 Urine Bacteria None seen /hpf (NONE) 05/24/24 13:46 Hyaline Casts 0-4 /lpf H 05/24/24 13:46 Coronavirus (PCR) Negative (Negative) 05/24/24 13:27 Influenza A (PCR) Negative (Negative) 05/24/24 13:27 Influenza Type B (PCR) Negative (Negative) 05/24/24 13:27 RSV (PCR) Negative (Negative) 05/24/24 13:27 Vitals Last Vital Signs Temp 98.7 F 05/25/24 05:40 Pulse 96 05/25/24 09:30 Resp 18 05/25/24 09:30 BP 124/59 05/25/24 09:30 Pulse Ox 90 05/25/24 09:30 O2 Del Method Room Air 05/25/24 08:13 Discharge Plan Discharge Patient Disposition: Home Condition: Stable Prescriptions: New nystatin 100,000 unit/gram Cream 1 applic topical BID 14 Days Qty: 30 0RF Continued insulin detemir U-100 100 unit/mL (3 mL) insulin pen 30 unit SUBCUT BID albuterol sulfate 2.5 mg /3 mL (0.083 %) solution for nebulization 2.5 mg inhalation Q4H PRN (Reason: Shortness Of Breath Or Wheezing) (DME) Boot See Rx Instructions .Route .MEDSUPPLY Qty: 1 0RF Rx Instructions: As directed metformin 500 mg tablet 500 mg PO BID Xarelto 20 mg tablet 20 mg PO DAILY Qty: 90 3RF Rx Instructions: 340B plan omeprazole 20 mg capsule,delayed release(DR/EC) 20 mg PO DAILY PRN (Reason: for aid reflux) Qty: 90 0RF allopurinol 100 mg tablet 100 mg PO DAILY Qty: 90 0RF atorvastatin 40 mg tablet 40 mg PO BEDTIME lisinopril-hydrochlorothiazide 20-12.5 mg tablet 1 tab PO DAILY mirtazapine 15 mg tablet 15 mg PO BEDTIME Rx Instructions: PT THINKS SHE TAKES THIS MEDICATION. paroxetine HCl 40 mg tablet 40 mg PO DAILY hydrocodone-acetaminophen 5-325 mg tablet 1 tab PO Q8H PRN (Reason: pain) Qty: 14 0RF Rx Instructions: Take 1/2 to 1 tab every 8 hours as needed for pain polyethylene glycol 3350 [Miralax] 17 gram/dose powder 17 g PO DAILY PRN (Reason: Constipation) Rx Instructions: Take 1 scoop daily while taking pain medications. Changed metoprolol tartrate 25 mg tablet 50 mg PO BID Qty: 90 3RF Discharge Orders: Discharge Order (Routine); Ordered 05/25/24 Ordered By: Lonnie Mcdaniel Referrals: Oskar Carrera MD [Primary Care Provider] - 4-7 days (Please keep your appointment with Dr. Carrera on Sunday.) Discharge Diet: Diabetic Patient Instructions: Metoprolol (By mouth), Nystatin (On the skin), A-fib (Atrial Fibrillation) (GEN), Skin Yeast Infection (GEN), Opioid Safety Activity Restrictions/Additional Instructions: Follow up with your primary provider for reassessment after atrial fibrillation with rapid heart rate. Continue metoprolol 50mg twice daily. Check your pulse rate three times daily and record values to bring to your appointment. Follow up with podiatry for additional assessment of your foot pain. Continue nystatin and have your primary doctor reassess you for recovery from the yeast infection under breasts and armpits. Seek medical attention in case of any worsening or new concerning symptoms. Discharge Attestations Time Spent in Discharge Care*: greater than 30 min Quality Metrics Clinical Quality Measures [ No reported AMI, CVA or VTE this stay] Coding Level of Care Code 34796 Total time (in minutes) for Discharge: 45 Diagnoses Atrial fibrillation with rapid ventricular response I48.91 Hypoglycemia E16.2 Intertrigo L30.4
--- NOTE | 2024-05-25 13:46 | PC.NURSE ---
Discharge Note Patient discharged to home via POV accompanied by family. Discharge instructions reviewed with patient and/or credit resolution representative. Mobile pharmacy medications and/or prescriptions provided. Belongings/home medications returned.
== END 2024-05-25 13:47 | disposition home or self-care (01) ==
LOC: ER 14:44 → CSU 15:26
PROVIDERS: Admitting Provider Internal Medicine; Emergency Provider Emergency Medicine; PCP Family Medicine; Visit Provider Internal Medicine
DX: I48.91 Unspecified atrial fibrillation (principal); L30.4 Erythema intertrigo; M10.9 Gout, unspecified; Z79.52 Long term (current) use of systemic steroids; Z79.4 Long term (current) use of insulin; Z79.84 Long term (current) use of oral hypoglycemic drugs; E11.40 Type 2 diabetes mellitus with diabetic neuropathy, unspecified; E11.649 Type 2 diabetes mellitus with hypoglycemia without coma; K21.9 Gastro-esophageal reflux disease without esophagitis; F41.9 Anxiety disorder, unspecified; E78.5 Hyperlipidemia, unspecified; I10 Essential (primary) hypertension; Z86.73 Personal history of transient ischemic attack (TIA), and cerebral infarction without residual deficits; J45.909 Unspecified asthma, uncomplicated
CPT/HCPCS: 0241U; 36415; 36416; 71045; 73630; 80048; 80053; 81001; 82962; 83735; 83880; 84443; 84484; 84550; 85025; 93005; 94640; 96365; 96372; 96375; 99285; G0378; J1815; J2919; J3475; J3490; J7613

== ENCOUNTER → 2024-05-27 09:38 | Outpatient (BNVA) | payer OTHER, SELFPAY | PROVIDERS: PCP Family Medicine; Visit Provider Podiatrist Foot & Ankle Surgery | DX: S93.322A Subluxation of tarsometatarsal joint of left foot, initial encounter; X58.XXXA Exposure to other specified factors, initial encounter; E11.9 Type 2 diabetes mellitus without complications; Z79.84 Long term (current) use of oral hypoglycemic drugs; Z79.4 Long term (current) use of insulin | CPT/HCPCS: 73630; 99213 ==

== ENCOUNTER 2024-05-30 20:37 | Inpatient (IN) | payer OTHER, SELFPAY ==
[2024-05-30 20:53] VITALS: BP 108/71; PULSE 150; RESP 26; TEMP 36.7; O2SAT 97; BMI 39.0
--- NOTE | 2024-05-30 20:56 | ECG_ITS ---
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 Measurements Intervals [place] Rate: 148 P: 0 VA: 0 QRS: 44 QRSD: 79 T: 66 QT: 303 QTc: 477 Interpretive Statements ATRIAL FLUTTER/TACHYCARDIA WITH RAPID VENTRICULAR RESPONSE LOW QRS VOLTAGE IN PRECORDIAL LEADS [QRS DEFLECTION < 1.0 mV IN CHEST LEADS] MODERATE ST DEPRESSION [0.05+ mV ST DEPRESSION] INTERPRETATION BASED ON A DEFAULT AGE OF 40 YEARS Compared to ECG 05/24/2024 18:29:47 No significant changes Electronically Signed On 05-31-2024 16:05:52 PERCUSSION WELDING MACHINE OPERATOR by Micah Bland M.D. [email or web address]
--- NOTE | 2024-05-30 21:21 | XRR_ITS ---
PROCEDURE INFORMATION: Exam: XR Chest Exam date and time: 05/30/2024 9:24 PM Age: 74 years old Clinical indication: Pain; Shortness of breath; Chest pressure; Patient HX: C/O cp with SOB. History of afib. TECHNIQUE: Imaging protocol: Radiologic exam of the chest. Views: 1 view. COMPARISON: CR (CHEST, ) 05/24/2024 3:32 PM FINDINGS: Lungs: Calcified granulomas in the right lung base. No focal airspace disease. Mildly improved aeration in the left lung base. Pleural spaces: Unremarkable. No pleural effusion. No pneumothorax. Heart/Mediastinum: Redemonstrated hiatal hernia. Vasculature: Tortuous thoracic aorta. Bones/joints: Surgical anchor again seen in the right humeral head. XR/XR chest 1V portable [id number] IMPRESSION: No definite acute cardiopulmonary findings.
--- NOTE | 2024-05-30 21:22 | ECG_ITS ---
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 Measurements Intervals [place] Rate: 97 P: 0 MA: 0 QRS: 32 QRSD: 80 T: 34 QT: 346 QTc: 441 Interpretive Statements atrial fibrillation with rapid ventricular rate LOW QRS VOLTAGE IN PRECORDIAL LEADS [QRS DEFLECTION < 1.0 mV IN CHEST LEADS] MINIMAL ST DEPRESSION [0.025+ mV ST DEPRESSION] ABNORMAL RHYTHM ECG Compared to ECG 05/24/2024 18:29:47 No significant changes Electronically Signed On 05-31-2024 16:06:17 CINEMA OPERATOR by Micah Bland M.D. [email or web address]
[2024-05-30 21:42] LABS: Basophils # 0.1 10^3/uL (0.0-0.1); Basophils % 0.6 %; Eosinophils # 0.6 10^3/uL (0.0-0.8); Eosinophils % 6.4 %; Hematocrit 33.2 % (36-47); Lymphocytes # 1.6 10^3/uL (0.8-4.8); Mean Corpuscular HGB Conc 31.3 g/dL (30-55); Mean Corpuscular Hemoglobin 25.8 pg (27-33); Mean Corpuscular Volume 82.4 fl (85-98); Mean Platelet Volume 9.6 fL (7.4-10.4); Monocytes # 0.8 10^3/uL (0.2-0.9); Monocytes % 8.8 %; Neutrophils # 6.22 10^3/uL (1.8-7.7); Neutrophils % 66.8 %; Nucleated Red Blood Cells % 0 %; Platelet Count 320 10^3/cmm (157-399); Red Blood Count 4.03 10^6/uL (3.85-5.65); Red Cell Distribution Width 14.6 % (12.1-15.1); White Blood Count 9.32 10^3/uL (3.29-11.43)
[2024-05-30 21:55] LABS: INR 1.23 (0.8-1.2); Partial Thromboplastin Time 29.5 SECONDS (23.9-36.7)
[2024-05-30 22:08] LABS: Troponin(5th) Baseline 19 ng/L (0-10)
--- NOTE | 2024-05-30 22:09 | P.HP_ITS ---
Providers/Chief Complaint 2 Primary Care Provider: Oskar Carrera MD Chief Complaint: SOB, cough has a fib History of Present Illness Kathrin Ferreira is a 74 year old female with history of chronic A-fib, left atrial diameter less than 4 cm, preserved distal fraction, lives alone, history of gout, was recently discharged from the hospital after instructions to increase her metoprolol dose to 50 mg twice a day, presenting with chief complaint of worsening of shortness of breath. Patient is stating that she woke up this morning feeling short of breath, all day her symptoms persisted, she has been experiencing dry hacking cough, she has not noticed any nausea, vomiting diarrhea or fever. She is experiencing runny nose runny eyes and postnasal drip. No recent use of antibiotics. She decided to come to the hospital for her worsening of shortness of breath Chest x-ray is unremarkable, respiratory panel requested, patient was in A-fib RVR which improved with Cardizem 15 mg IV push, at the time of my evaluation she is in A-fib with heart rate between 90-100 She is hemodynamically stable Currently on room air Patient is stating that she is not sure about her medications name but she takes what ever is in her pillbox, she lives alone, Review of Systems 2 Const: Reports: chills, body aches and fatigue Eyes: Denies: change in vision ENMT: Denies: throat pain Card: Reports: palpitations and swelling of feet/ankles; Denies: chest pain Resp: Reports: dyspnea and non-productive cough GI: Denies: abdominal pain : Denies: flank pain Medications/Allergies Home Medications Medication Instructions Recorded Confirmed Last Taken Type atorvastatin 40 mg tablet 40 mg PO BEDTIME 03/15/20 05/28/24 05/23/24 History lisinopril 20 1 tab PO DAILY 03/15/20 05/28/24 05/23/24 History mg-hydrochlorothiazide 12.5 mg tablet mirtazapine 15 mg tablet 15 mg PO BEDTIME 03/15/20 05/28/24 05/23/24 History paroxetine HCl 40 mg tablet 40 mg PO DAILY 03/15/20 05/28/24 05/23/24 History insulin detemir U-100 100 unit/mL 30 unit SUBCUT BID 02/16/22 05/28/24 05/23/24 History (3 mL) subcutaneous pen rivaroxaban 20 mg tablet (Xarelto) 20 mg PO DAILY #90 tabs 06/06/23 05/28/24 05/23/24 Rx albuterol sulfate 2.5 mg/3 mL 2.5 mg inhalation Q4H PRN 09/04/23 05/28/24 Unknown History (0.083 %) solution for nebulization Shortness Of Breath Or Wheezing metformin 500 mg tablet 500 mg PO BID 02/29/24 05/28/24 05/23/24 History hydrocodone 5 mg-acetaminophen 325 1 tab PO Q8H PRN pain #14 tabs 03/23/24 05/28/24 05/23/24 Rx mg tablet Boot #1 ea 03/26/24 05/28/24 Unknown Rx omeprazole 20 mg capsule,delayed 20 mg PO DAILY PRN for aid reflux 04/16/24 05/28/24 05/23/24 Rx release #90 caps polyethylene glycol 3350 17 17 g PO DAILY PRN Constipation 05/24/24 05/28/24 Unknown History gram/dose oral powder (Miralax) metoprolol tartrate 25 mg tablet 50 mg (2 x 25 mg) PO BID #90 tabs 05/25/24 05/28/24 05/23/24 Rx nystatin 100,000 unit/gram topical 1 applic topical BID 14 days #30 05/25/24 05/28/24 Unknown Rx cream grams allopurinol 300 mg tablet 300 mg PO DAILY #90 tabs 05/28/24 05/28/24 Unknown Rx colchicine 0.6 mg tablet See Rx Instructions PO DAILY gout 05/28/24 05/28/24 Unknown Rx flare #30 tabs rollaid with seat #1 ea 05/28/24 05/28/24 Unknown Rx Allergies Allergy/AdvReac Type Severity Reaction Status Date / Time sulfamethoxazole Allergy Intermediate ALGY-Hives Verified 05/30/24 20:56 [From Bactrim] trimethoprim [From Bactrim] Allergy Intermediate ALGY-Hives Verified 05/30/24 20:56 PFSH Acute 2 PFSH: Medical History Neuropathy Moderate major depression BRITTNEY (iron deficiency anemia) Gout GERD (gastroesophageal reflux disease) Atrial flutter Anxiety Hx of blood clots Fatigue Tachycardia Diabetes Weakness Hyperlipidemia DM type 2 (diabetes mellitus, type 2) Hypertension CVA (cerebral vascular accident) Asthma Surgical History History of bilateral carpal tunnel release History of esophagogastroduodenoscopy (EGD) 10 + years Hx of colonoscopy less than 10 years ago Hx of carpal tunnel repair bilateral Family History Mother Stroke Hypertension CAD (coronary artery disease) Diabetes Grandmother CAD (coronary artery disease) Cancer Diabetes Father CAD (coronary artery disease) Family/Other Lung disease Denies family history of Clotting disorder Dementia Chronic kidney disease (CKD) Suicide Anesthesia complication Bleeding disorder Social History Smoking and tobacco/nicotine status: never used tobacco/nicotine Alcohol intake: never Substance/Drug Use: never Vitals/I&O/Wt Last Vital Signs Temp 98.1 F 05/30/24 20:53 Pulse 150 H 05/30/24 20:53 Resp 26 H 05/30/24 20:53 BP 108/71 05/30/24 20:53 Pulse Ox 97 05/30/24 20:53 O2 Del Method Room Air 05/30/24 20:53 Weight last 48 hrs Weight 90.718 kg Physical Exam 2 Narrative: Patient is awake and alert Mild sign of fluid overload Bilateral breath sounds with rhonchi Currently on room air A-fib w RVR 110 Hemodynamically stable Pleasant and cooperative Nonfocal neuroexam GCS 15 No active chest pain or respiratory distress Patient has runny nose runny eyes with hoarseness of voice Data 05/30/24 21:37 05/30/24 21:37 A&P Assessment and plan (1) Intermittent atrial fibrillation: (2) Atrial fibrillation with rapid ventricular response: (3) DM type 2 (diabetes mellitus, type 2): (4) GERD (gastroesophageal reflux disease): (5) Gout: (6) Foot pain: (7) Neuropathy: (8) Asthma: Plan Symptomatic A-fib with RVR Patient experiencing shortness of breath X-rays not remarkable for consolidation Respiratory panel requested Magnesium is 1.6 potassium is 3.9, replenish electrolytes with goal magnesium above 2 potassium before Patient also has clinical signs of mild fluid overload with mild vascular congestion on x-ray I will give her IV Lasix as well with replenishment of electrolytes I would increase her metoprolol to 100 mg twice a day regimen, considering her paroxysmal A-fib with RVR nature she may benefit from amiodarone, monitor overnight No active chest pain Patient is not requiring oxygen Afebrile Continue rivaroxaban Consistent carb diet without insulin sliding scale Will add Robitussin for her cough and Tessalon Perles Full code Attestations 2 Medical Necessity Statement*: Anticipating discharge within 48 hours Diagnoses Intermittent atrial fibrillation I48.0 Atrial fibrillation with rapid ventricular response I48.91 DM type 2 (diabetes mellitus, type 2) E11.9 GERD (gastroesophageal reflux disease) K21.9 Gout M10.9 Foot pain M79.673 Neuropathy G62.9 Asthma J45.909
[2024-05-30 22:11] VITALS: BP 104/48; PULSE 101; RESP 17; O2SAT 94
[2024-05-30] MEDS: dilTIAZem 5 mg/mL SDV 5 mL 15 MG IVP (22:12)
[2024-05-30 22:18] LABS: Alanine Aminotransferase 13 U/L (0-33); Albumin Level 3.7 g/dL (3.5-5.2); Alkaline Phosphatase 146 U/L (35-105); Anion Gap 12.9 (5-19); Aspartate Amino Transferase 15 U/L (0-32); Blood Urea Nitrogen 22 mg/dL (8-23); Calcium 8.9 mg/dL (8.5-10.5); Carbon Dioxide 29 mmol/L (22-29); Chloride 101 mmol/L (98-107); Creatine Phosphokinase 38 U/L (26-192); Creatinine Clr Calc Pharmacy 41.9131; Globulin 2.5 g/dL (1.3-4.6); Glucose 296 mg/dL (65-115); Magnesium 1.6 mg/dL (1.7-2.3); NT Pro B Type Natriuretic Pept 1139 pg/mL (0-125); Osmolality Calculated 302 mOsm/kg (285-295); Potassium 3.9 mmol/L (3.5-5.1); Sodium 139 mmol/L (136-145); Total Bilirubin 0.4 mg/dL (0.15-1.2); Total Protein 6.2 g/dL (6.6-8.7)
[2024-05-30] MEDS: guaiFENesin-codeine UDC 10 mL 5 ML PO (22:23)
[2024-05-30 22:32] VITALS: BP 104/49; PULSE 99; RESP 19; O2SAT 95
[2024-05-30 22:46] LABS: Covid PCR NEGATIVE (Negative); Influenza A NEGATIVE (Negative); Influenza B NEGATIVE (Negative); Respiratory Syncytial Virus Ce NEGATIVE (Negative)
[2024-05-30] MEDS: dilTIAZem 100 MG in sodium chloride 0.9% (add-van) 100 ML IV (22:49)
--- NOTE | 2024-05-30 22:58 | ED_ITS ---
HPI - SOB/Dyspnea 2 General: Chief Complaint: Shortness of Breath/Dyspnea Stated Complaint: SOB, cough has a fib Time Seen by Provider: 05/30/24 21:21 History of Present Illness: HPI Narrative: 74-year-old female with a history of atr ial fibrillation. She presents with significant shortness of breath. She has a cough that developed earlier today. She says the cough is quite bothersome. Her heart rate was 150 in the triage room on her arrival. She denies significant chest pain. She denies leg swelling. She denies fever. She asks for something for her cough and for the chronic pain in her right foot. Related Data Home Medications Medication Instructions Recorded Confirmed atorvastatin 40 mg tablet 40 mg PO BEDTIME 03/15/20 05/28/24 lisinopril 20 1 tab PO DAILY 03/15/20 05/28/24 mg-hydrochlorothiazide 12.5 mg tablet mirtazapine 15 mg tablet 15 mg PO BEDTIME 03/15/20 05/28/24 paroxetine HCl 40 mg tablet 40 mg PO DAILY 03/15/20 05/28/24 insulin detemir U-100 100 unit/mL 30 unit SUBCUT BID 02/16/22 05/28/24 (3 mL) subcutaneous pen albuterol sulfate 2.5 mg/3 mL 2.5 mg inhalation Q4H PRN 09/04/23 05/28/24 (0.083 %) solution for nebulization Shortness Of Breath Or Wheezing metformin 500 mg tablet 500 mg PO BID 02/29/24 05/28/24 polyethylene glycol 3350 17 17 g PO DAILY PRN Constipation 05/24/24 05/28/24 gram/dose oral powder (Miralax) Previous Rx's Medication Instructions Recorded rivaroxaban 20 mg tablet (Xarelto) 20 mg PO DAILY #90 tabs 06/06/23 hydrocodone 5 mg-acetaminophen 325 1 tab PO Q8H PRN pain #14 tabs 03/23/24 mg tablet Boot #1 ea 03/26/24 omeprazole 20 mg capsule,delayed 20 mg PO DAILY PRN for aid reflux 04/16/24 release #90 caps metoprolol tartrate 25 mg tablet 50 mg (2 x 25 mg) PO BID #90 tabs 05/25/24 nystatin 100,000 unit/gram topical 1 applic topical BID 14 days #30 05/25/24 cream grams allopurinol 300 mg tablet 300 mg PO DAILY #90 tabs 05/28/24 colchicine 0.6 mg tablet See Rx Instructions PO DAILY gout 05/28/24 flare #30 tabs rollaid with seat #1 ea 05/28/24 Allergies Allergy/AdvReac Type Severity Reaction Status Date / Time sulfamethoxazole Allergy Intermediate ALGY-Hives Verified 05/30/24 20:56 [From Bactrim] trimethoprim [From Bactrim] Allergy Intermediate ALGY-Hives Verified 05/30/24 20:56 PFSH ED 2 PFSH: Medical History Neuropathy Moderate major depression BRITTNEY (iron deficiency anemia) Gout GERD (gastroesophageal reflux disease) Atrial flutter Anxiety Hx of blood clots Fatigue Tachycardia Diabetes Weakness Hyperlipidemia DM type 2 (diabetes mellitus, type 2) Hypertension CVA (cerebral vascular accident) Asthma Surgical History History of bilateral carpal tunnel release History of esophagogastroduodenoscopy (EGD) 10 + years Hx of colonoscopy less than 10 years ago Hx of carpal tunnel repair bilateral Family History Mother Stroke Hypertension CAD (coronary artery disease) Diabetes Grandmother CAD (coronary artery disease) Cancer Diabetes Father CAD (coronary artery disease) Family/Other Lung disease Denies family history of Clotting disorder Dementia Chronic kidney disease (CKD) Suicide Anesthesia complication Bleeding disorder Social History Smoking and tobacco/nicotine status: never used tobacco/nicotine Alcohol intake: never Substance/Drug Use: never Physical Exam 2 Const: GENERAL APPEARANCE: cooperative, ill appearing (Mildly) and frail appearing (Mildly) HENMT: COMMON NORMALS: normocephalic, atraumatic and Normal external nose present HEAD & SCALP: normocephalic and atraumatic FACE & SINUS: normal facial exam and face symmetric NOSE: Normal external nose present Eye: COMMON NORMALS: Equal, round and reactive pupils present and EOMs intact bilaterally PUPIL: Yes Equal, round and reactive pupils present Neck/C-Spine: GENERAL: Yes trachea midline Chest: CHEST: Yes Symmetrical chest wall rise Resp: COMMON NORMALS: clear to auscultation bilaterally EFFORT & INSPECTION: Yes tachypneic AUSCULTATION: clear to auscultation bilaterally Cardio: RATE: tachycardic RHYTHM: abnormal rhythm irregularly irregular GI: COMMON NORMALS: Normal to inspection, nondistended, normoactive bowel sounds present Extremity: COMMON NORMALS: no pedal edema Neuro: CARLOS COMA SCALE: document GCS findings [place] coma scale eye opening: Spontaneous Carlos coma scale verbal response: Orientated Carlos coma scale motor response: Obey commands [place] coma scale total score: 15 S ENSORY EXAM: Yes extremities (intact) Psych: COMMON NORMALS: speech normal SPEECH: Yes normal speech Skin: COMMON NORMALS: no rashes or lesions noted GENERAL SKIN EXAM: no rashes or lesions noted Course 2 Vital Signs: Vital signs: Vital Signs Temperature 98.1 F 05/30/24 20:53 Pulse Rate 78 05/30/24 23:02 Respiratory Rate 22 H 05/30/24 23:02 Blood Pressure 102/81 05/30/24 23:02 Pulse Oximetry 94 05/30/24 23:02 Oxygen Delivery Me thod Room Air 05/30/24 20:53 MDM - SOB/Dyspnea Medical Decision Making Heart rate was significantly elevated. She was having chest discomfort. She received 15 mg diltiazem bolus with improvement in her heart rate, but heart rate rebounded to above 100. Diltiazem drip was started. Chest x-ray is nonacute. Hemoglobin is 10. Creatinine is 1.2. Glucose is 296. TSH is 1.5. Swabs for COVID flu and RSV are negative. BNP is elevated at 1100. As she is on a diltiazem drip, she will require observation in the [facility]. Hospitalist has seen the patient in the ER. Lab Data 05/30/24 21:37 05/30/24 21:37 Labs/Radiology: Radiology Impressions Chest X-Ray 05/30/24 21:21 IMPRESSION: No definite acute cardiopulmonary findings. Laboratory Results WBC 9.32 10^3/uL (3.29-11.43) 05/30/24 21:37 RBC 4.03 10^6/uL (3.85-5.65) 05/30/24 21:37 Hgb 10.40 g/dL (11.27-16.99) L 05/30/24 21:37 Hct 33.2 % (36-47) L 05/30/24 21:37 MCV 82.4 fl (85-98) L 05/30/24 21:37 MCH 25.8 pg (27-33) L 05/30/24 21:37 MCHC 31.3 g/dL (30-55) 05/30/24 21:37 RDW 14.6 % (12.1-15.1) 05/30/24 21:37 Plt Count 320 10^3/cmm (157-399) 05/30/24 21:37 MPV 9.6 fL (7.4-10.4) 05/30/24 21:37 Neut % (Auto) 66.8 % 05/30/24 21:37 Lymph % (Auto) 17.0 % 05/30/24 21:37 [place] % (Auto) 8.8 % 05/30/24 21:37 Eos % (Auto) 6.4 % 05/30/24 21:37 Baso % (Auto) 0.6 % 05/30/24 21:37 Neut # (Auto) 6.22 10^3/uL (1.8-7.7) 05/30/24 21:37 Lymph # (Auto) 1.6 10^3/uL (0.8-4.8) 05/30/24 21:37 [place] # (Auto) 0.8 10^3/uL (0.2-0.9) 05/30/24 21:37 Eos # (Auto) 0.6 10^3/uL (0.0-0.8) 05/30/24 21:37 Baso # (Auto) 0.1 10^3/uL (0.0-0.1) 05/30/24 21:37 Nucleated RBC % (auto) 0 % 05/30/24 21: Nucleated RBCs # 0.0 /100WBC 05/30/24 21:37 PT 15.90 SECONDS (12.1-14.9) H 05/30/24 21:37 INR 1.23 (0.8-1.2) H 05/30/24 21:37 APTT 29.5 SECONDS (23.9-36.7) 05/30/24 21:37 Sodium 139 mmol/L (136-145) 05/30/24 21:37 Potassium 3.9 mmol/L (3.5-5.1) 05/30/24 21:37 Chloride 101 mmol/L (98-107) 05/30/24 21:37 Carbon Dioxide 29 mmol/L (22-29) 05/30/24 21:37 Anion Gap 12.9 (5-19) 05/30/24 21:37 BUN 22 mg/dL (8-23) 05/30/24 21:37 Creatinine 1.2 mg/dL (0.5-0.9) H 05/30/24 21:37 GFR Calculation Not Reportable 05/30/24 21:37 Glucose 296 mg/dL (65-115) H 05/30/24 21:37 Calculated Osmolality 302 mOsm/kg (285-295) H 05/30/24 21:37 Calcium 8.9 mg/dL (8.5-10.5) 05/30/24 21:37 Magnesium 1.6 mg/dL (1.7-2.3) L 05/30/24 21:37 Total Bilirubin 0.4 mg/dL (0.15-1.2) 05/30/24 21:37 AST 15 U/L (0-32) 05/30/24 21:37 ALT 13 U/L (0-33) 05/30/24 21:37 Alkaline Phosphatase 146 U/L (35-105) H 05/30/24 21:37 Creatine Kinase 38 U/L (26-192) 05/30/24 21:37 Troponin T Baseline 19 ng/L (0-10) H 05/30/24 21:37 NT-Pro-B Natriuret Pep 1139 pg/mL (0-125) H 05/30/24 21:37 Total Protein 6.2 g/dL (6.6-8.7) L 05/30/24 21:37 Albumin 3.7 g/dL (3.5-5.2) 05/30/24 21:37 Globulin 2.5 g/dL (1.3-4.6) 05/30/24 21:37 TSH 1.50 uIU/mL (0.27-4.20) 05/30/24 21:37 Coronavirus (PCR) Negative (Negative) 05/30/24 21:37 Influenza A (PCR) Negative (Negative) 05/30/24 21:37 Influenza Type B (PCR) Negative (Negative) 05/30/24 21:37 RSV (PCR) Negative (Negative) 05/30/24 21:37 All radiology interpretation(s) finalized by discharge Discharge Plan Discharge Patient Disposition: Admitted As Inpatient Admit Provider: Marco Dyer Clinical Impression: Atrial fibrillation with rapid ventricular response Condition: Fair Coding Level of Care Code 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
[2024-05-30 23:02] VITALS: BP 102/81; PULSE 78; RESP 22; O2SAT 94
[2024-05-30 23:21] LABS: Troponin 5 2HR 19.01 ng/L (0-10); Troponin 5 2HR Delta 0.01 ABS# (0-10)
--- NOTE | 2024-05-30 23:22 | ECG_ITS ---
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
[2024-05-30] MEDS: magnesium sulfate premix 2 GM/50 ML PIGGYBACK IV (23:25)
[2024-05-30] MEDS: potassium chloride ER 20 mEq Tablet 40 MEQ PO (23:26)
[2024-05-31] VITALS (15 sets, daily range): BP systolic 97–120; BP diastolic 68–85; PULSE 89–135; RESP 14–24; TEMP 36.4–37; O2SAT 88–96
[2024-05-31] MEDS: azithromycin 250 mg Tablet 500 MG PO ×2 (01:05→21:25)
[2024-05-31] MEDS: amiodarone 200 mg Tablet 400 MG PO (01:05)
[2024-05-31] MEDS: HYDROcodone-acetaminophen 5-325 mg Tablet 1 TAB PO ×2 (01:05→11:52)
[2024-05-31] MEDS: guaiFENesin 100 mg/5 mL UDC 10 mL 400 MG PO ×3 (01:06→21:25)
--- NOTE | 2024-05-31 03:22 | ECG_ITS ---
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: : 1950 Requested By: Tito Boyer Order Number: [id number] Reading MD: SAL MUNIZ Measurements Intervals [place] Rate: 133 P: 0 HI: 0 QRS: 24 QRSD: 66 T: 18 QT: 282 QTc: 421 Interpretive Statements ATRIAL FIBRILLATION WITH RAPID VENTRICULAR RESPONSE LOW QRS VOLTAGE IN PRECORDIAL LEADS [QRS DEFLECTION < 1.0 mV IN CHEST LEADS] MODERATE ST DEPRESSION [0.05+ mV ST DEPRESSION] Compared to ECG 05/31/2024 00:26:35 ST (T wave) deviation now present Atrial flutter no longer present Electronically Signed On 06-04-2024 18:17:48 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
[2024-05-31 03:43] LABS: Bilirubin Urine Negative (Negative); Blood Urine Negative (Negative); Glucose Urine UA Negative (Normal); Ketones Urine Negative (Negative); Leukocyte Esterase Urine Negative (Negative); Nitrate Urine Negative (Negative); Protein Urine Negative (Negative); Specific Gravity, Urine 1.011 (1.005-1.030); Urine Appearance Clear (CLEAR); Urine Color Yellow (Yellow)
[2024-05-31 03:48] LABS: Add Urine Microscopic? YES; Bacteria Urine None Seen /hpf; Hyaline Casts Urine 0-4 /lpf; RBC Urine 0-2 /hpf (0-2); Squamous Epithelial Cell Urine 0-5 /hpf (0-5); WBC Urine 0-5 /hpf (0-5)
[2024-05-31] MEDS: levalbuterol 1.25 mg/3 mL Neb INHALATION ×4 (03:55→19:33)
[2024-05-31 04:11] LABS: Basophils # 0.1 10^3/uL (0.0-0.1); Basophils % 1.1 %; Eosinophils # 0.6 10^3/uL (0.0-0.8); Eosinophils % 6.2 %; Hematocrit 35.2 % (36-47); Lymphocytes # 1.4 10^3/uL (0.8-4.8); Lymphocytes % 13.9 %; Mean Corpuscular HGB Conc 29.8 g/dL (30-55); Mean Corpuscular Hemoglobin 25.4 pg (27-33); Mean Platelet Volume 9.8 fL (7.4-10.4); Monocytes # 0.9 10^3/uL (0.2-0.9); Monocytes % 8.6 %; Neutrophils # 6.85 10^3/uL (1.8-7.7); Neutrophils % 69.8 %; Nucleated Red Blood Cells % 0 %; Platelet Count 320 10^3/cmm (157-399); Red Blood Count 4.14 10^6/uL (3.85-5.65); Red Cell Distribution Width 14.6 % (12.1-15.1); White Blood Count 9.83 10^3/uL (3.29-11.43)
[2024-05-31 04:29] LABS: Troponin 5 6HR 19.11 ng/L (0-10); Troponin 5 6HR Delta 0.11 ng/L (0-12)
[2024-05-31 04:35] LABS: C Reactive Protein 4.7 mg/L (0.0-4.9); Magnesium 2.4 mg/dL (1.7-2.3); Phosphorus 3.8 mg/dL (2.5-4.5)
[2024-05-31 04:38] LABS: Blood Urea Nitrogen 21 mg/dL (8-23); Calcium 9.2 mg/dL (8.5-10.5); Carbon Dioxide 30 mmol/L (22-29); Chloride 101 mmol/L (98-107); Creatinine Clr Calc Pharmacy 43.0613; Glucose 85 mg/dL (65-115); Osmolality Calculated 296 mOsm/kg (285-295); Sodium 142 mmol/L (136-145)
[2024-05-31] MEDS: amiodarone 150 MG/100 ML PREMIX 400 MG IV (05:06)
[2024-05-31 06:31] LABS: Glucose Point of Care 120 mg/dL (70-110)
--- NOTE | 2024-05-31 07:24 | PC.NURSE ---
Patient HR elevated to 130-140. Dr Dyer notified and new order for amio was placed.
[2024-05-31] MEDS: allopurinol 300 mg Tablet PO (09:11)
[2024-05-31] MEDS: insulin glargine 100 units/1 mL 20 UNIT SUBCUT (09:11)
[2024-05-31] MEDS: colchicine 0.6 mg Tablet PO (09:11)
[2024-05-31] MEDS: metoprolol tartrate 50 mg Tablet PO ×2 (09:11→21:25)
[2024-05-31] MEDS: magnesium oxide 400 mg tablet PO ×2 (09:11→17:26)
[2024-05-31] MEDS: rivaroxaban 10 mg Tablet 20 MG PO (09:11)
[2024-05-31] MEDS: PARoxetine 20 mg Tablet 40 MG PO (09:11)
[2024-05-31 11:20] LABS: D Dimer 0.57 ug/mLFEU (0-0.59)
[2024-05-31 11:25] LABS: Glucose Point of Care 255 mg/dL (70-110)
[2024-05-31 11:28] LABS: Iron 25 ug/dL (37-145); Percent Saturation 6.8 % (20-50); Total Iron Binding Capacity 365 mcg/dl; Unsaturated Iron Binding 340 ug/dL (112-347)
[2024-05-31] MEDS: FUROsemide 10 mg/mL SDV 4mL 40 MG IVP (11:33)
[2024-05-31] MEDS: insulin lispro 100 unit/1 mL SUBCUT ×3 (11:34→21:25)
[2024-05-31 11:43] LABS: Procalcitonin 0.05 ng/mL (0-0.5); Vitamin B12 262 pg/mL (232-1245)
--- NOTE | 2024-05-31 11:49 | CTR_ITS ---
PROCEDURE INFORMATION: Exam: CT Right Lower Extremity, Foot Exam date and time: 05/31/2024 2:22 PM Age: 74 years old Clinical indication: Pain; Foot; Right; Additional info: Foot pain TECHNIQUE: Imaging protocol: CT of the right lower extremity without contrast was performed. Exam focused on the foot. Radiation optimization: All CT scans at this facility use at least one of these dose optimization techniques: automated exposure control; mA and/or kV adjustment per patient size (includes targeted exams where dose is matched to clinical indication); or iterative reconstruction. COMPARISON: CR XR foot RT min 3V* [id number] 05/24/2024 3:37 PM RADIATION DOSE METRICS: Total DLP (mGy-cm): 158.83 FINDINGS: Bones/joints: No evidence of fracture or subluxation. Tarsometatarsal alignment is intact. Mild midfoot osteoarthritis. Soft tissues: Prominent diffuse superficial soft tissue edema. No discrete fluid collection to suggest abscess. No evidence of soft tissue air to suggest gas-forming infection/fasciitis. Tendons are grossly intact. CT/CT foot RT wo con* [id number] IMPRESSION: 1. Superficial soft tissue edema without discrete fluid collection or underlying acute osseous abnormality.
[2024-05-31] MEDS: ALPRAZolam 0.5 mg Tablet PO ×2 (12:15→21:25)
[2024-05-31] MEDS: predniSONE 20 mg Tablet 40 MG PO (12:15)
--- NOTE | 2024-05-31 14:04 | P.PN_ITS ---
Subjective 2 Subjective: Admitted overnight. Today morning seen sitting up in chair. States breathing is improved. Patient is on room air. Currently on amiodarone drip with heart rate mostly running in low 100s to 130s at rest. Patient is anxious on examination, complaining of foot pain. Denies any nausea counting, headache, chest pain. Vitals/I&O/Wt Last Vital Signs Temp 98.5 F 05/31/24 12:00 Pulse 112 H 05/31/24 12:00 Resp 20 H 05/31/24 12:00 BP 109/82 05/31/24 12:00 Pulse Ox 94 05/31/24 12:00 O2 Del Method Room Air 05/31/24 12:00 05/30/24 05/31/24 05/31/24 22:59 06:59 14:59 Intake Total 301.125 / 265.867 4789 / 1260 Output Total 120 / 120 Balance 181.125 / 545.799 9409 / 1260 Weight last 48 hrs Weight 95.073 kg Weight 95.073 kg Weight 94.71 kg Weight 90.718 kg Physical Exam 2 Narrative: General: No acute distress, AO x3, Anxious, tearful HEENT: PERRLA, pupils bilaterally equal and reactive Chest: Normal vesicular breath sounds, occasional rhonchi, occasional fine crackles bilateral lower zone, equal good air entry bilaterally CVS: S1-S2 irregularly irregular, tachycardia, Soft pansystolic murmur at apex, no gallops, no rubs Abdomen: Soft, nontender, no organomegaly, bowel sounds present Neuro: No focal deficits, no facial deformity, AO x3, power 5/5 in all limbs Data 05/31/24 03:12 05/31/24 03:12 A&P Assessment and plan (1) Intermittent atrial fibrillation: (2) Atrial fibrillation with rapid ventricular response: (3) Foot pain: (4) DM type 2 (diabetes mellitus, type 2): (5) GERD (gastroesophageal reflux disease): (6) Gout: (7) Neuropathy: (8) Asthma: Plan Symptomatic A-fib with RVR: Symptomatic with shortness of breath. Continue with amiodarone drip as per protocol. Hold off on oral amiodarone for now. Restart home dose of metoprolol. Monitor vitals. Anxiety also playing part in tachycardia. Start on Xanax 0.5 3 times daily as needed. Continue anticoagulation with Xarelto. Echocardiogram in past showed an EF of 60% with moderately increased LA size, mildly increased RV size. Will plan for repeat echocardiogram with and without contrast once heart rate better Shortness of breath: Most likely in setting of mild diastolic congestive heart failure. COVID-19 and flu swab negative on admission. IV Lasix 40 mg one-time. Strict input output charting, daily weights. Pneumonia less likely. Continue with azithromycin 500 mg oral daily. Check MRSA swab, bacterial antigen. Check D-dimer. Patient has no history of asthma. Continue with Pulmicort twice daily, Xopenex every 6 hour. Add ipratropium every 6 hours. Prednisone 40 mg oral daily. Foot pain: Patient getting treatment for gout as an outpatient for last 4 to 5 weeks. No much improvement. Continue with colchicine. Check foot CT scan. Appreciate excellent admission. Above prednisone will also help in setting of possible gout pain. Type 2 diabetes mellitus: Blood sugars elevated. Continue with sliding scale. Increase Lantus to match home dose of 30 units twice daily. Anxiety: Continue with home dose of Paxil. Add Xanax as above. Restart other home doses of medication. Full code Carb consistent diet Xarelto will be sufficient for DVT prophylaxis Protonix for PUD prophylaxis Attestations 2 Medical Necessity Statement*: Kathrin Ferreira is being changed to inpatient status as stay will now exceed 2 midnights. Ongoing hospital care is necessary for management of A-fib with RVR on amiodarone drip while further rate limiting medications are adjusted, shortness of breath in setting of mild diastolic congestive heart failure, asthma Diagnoses Intermittent atrial fibrillation I48.0 Atrial fibrillation with rapid ventricular response I48.91 Foot pain M79.673 DM type 2 (diabetes mellitus, type 2) E11.9 GERD (gastroesophageal reflux disease) K21.9 Gout M10.9 Neuropathy G62.9 Asthma J45.909
[2024-05-31] MEDS: pantoprazole DR 40 mg Tablet PO (15:03)
[2024-05-31 15:14] LABS: MRSA PCR OZH (swab) NOT DETECTED (Not Detecte)
[2024-05-31] MEDS: amiodarone 200 mg Tablet PO (16:46)
[2024-05-31 17:25] LABS: Glucose Point of Care 247 mg/dL (70-110)
[2024-05-31] MEDS: insulin glargine 100 units/1 mL 30 UNIT SUBCUT (17:27)
[2024-05-31] MEDS: ipratropium 0.5 mg/2.5 mL Neb INHALATION (19:33)
[2024-05-31] MEDS: budesonide 0.5 mg/2 mL Neb INHALATION (19:33)
[2024-05-31 20:59] LABS: Glucose Point of Care 480 mg/dL (70-110)
--- NOTE | 2024-05-31 21:12 | PC.NURSE ---
Patient blood glucose was 480, Dr Dyer notified and ordered 22 units to be given.
[2024-06-01 04:00] VITALS: BP 118/81; PULSE 99; RESP 19; TEMP 36.5; O2SAT 90
[2024-06-01 04:58] VITALS: PULSE 87
[2024-06-01 05:31] LABS: Basophils % 0.5 %; Eosinophils # 0.1 10^3/uL (0.0-0.8); Eosinophils % 0.6 %; Hematocrit 31.9 % (36-47); Lymphocytes # 1.1 10^3/uL (0.8-4.8); Lymphocytes % 13.7 %; Mean Corpuscular Hemoglobin 26.2 pg (27-33); Mean Corpuscular Volume 84.4 fl (85-98); Mean Platelet Volume 11.2 fL (7.4-10.4); Monocytes % 12.1 %; Neutrophils # 5.89 10^3/uL (1.8-7.7); Neutrophils % 72.6 %; Nucleated Red Blood Cells % 0 %; Platelet Count 206 10^3/cmm (157-399); Red Blood Count 3.78 10^6/uL (3.85-5.65); Red Cell Distribution Width 14.6 % (12.1-15.1); White Blood Count 8.11 10^3/uL (3.29-11.43)
[2024-06-01 05:43] LABS: Alanine Aminotransferase 12 U/L (0-33); Albumin Level 3.6 g/dL (3.5-5.2); Alkaline Phosphatase 132 U/L (35-105); Blood Urea Nitrogen 21 mg/dL (8-23); Calcium 9.2 mg/dL (8.5-10.5); Carbon Dioxide 28 mmol/L (22-29); Chloride 99 mmol/L (98-107); Chol HDL Ratio 2.28 mg/dL (0.0-4.40); Cholesterol 114 mg/dL (0-200); Creatinine Clr Calc Pharmacy 46.8716; Globulin 2.4 g/dL (1.3-4.6); Glucose 66 mg/dL (65-115); HDL Cholesterol 50 mg/dL (60-100); LDL Cholesterol Calculated 44 mg/dL (50-129); Osmolality Calculated 287 mOsm/kg (285-295); Sodium 138 mmol/L (136-145); Total Bilirubin 0.5 mg/dL (0.15-1.2); Triglycerides 98 mg/dL (0-150); VLDL Cholestrol Calculation 20 mg/dL (0-30)
[2024-06-01 05:47] LABS: Anion Gap 14.9 (5-19); Potassium 3.9 mmol/L (3.5-5.1)
[2024-06-01 05:48] LABS: Aspartate Amino Transferase 17 U/L (0-32)
[2024-06-01 05:58] LABS: Folate Level 14.1 ng/mL (4.8-37.3)
[2024-06-01 06:30] LABS: Glucose Point of Care 87 mg/dL (70-110)
[2024-06-01 07:32] VITALS: BP 111/64; PULSE 83; RESP 16; TEMP 36.5; O2SAT 94
[2024-06-01] MEDS: ipratropium 0.5 mg/2.5 mL Neb INHALATION (07:38)
[2024-06-01] MEDS: budesonide 0.5 mg/2 mL Neb INHALATION (07:38)
[2024-06-01] MEDS: levalbuterol 1.25 mg/3 mL Neb INHALATION (07:38)
[2024-06-01 07:40] VITALS: PULSE 83; RESP 14; O2SAT 94
[2024-06-01] MEDS: insulin glargine 100 units/1 mL 30 UNIT SUBCUT (08:32)
[2024-06-01] MEDS: allopurinol 300 mg Tablet PO (08:33)
[2024-06-01] MEDS: rivaroxaban 10 mg Tablet 20 MG PO (08:33)
[2024-06-01] MEDS: PARoxetine 20 mg Tablet 40 MG PO (08:34)
[2024-06-01] MEDS: predniSONE 20 mg Tablet 40 MG PO (08:34)
[2024-06-01] MEDS: magnesium oxide 400 mg tablet PO (08:34)
[2024-06-01] MEDS: pantoprazole DR 40 mg Tablet PO (08:34)
[2024-06-01] MEDS: ALPRAZolam 0.5 mg Tablet PO (08:44)
[2024-06-01] MEDS: metoprolol tartrate 50 mg Tablet PO (08:44)
[2024-06-01] MEDS: HYDROcodone-acetaminophen 5-325 mg Tablet 1 TAB PO (08:44)
--- NOTE | 2024-06-01 11:11 | PM.DCS ---
Discharge Providers Date of Admission: 05/31/24 10:37 Date of Discharge: June 01, 2024 Attending Provider at Admission: Marco Dyer MD Attending Provider at Discharge: Juanjose Fraga MD Primary Care Provider: Oskar Carrera MD Diagnoses at Discharge Discharge Diagnosis (1) Intermittent atrial fibrillation: Status: Acute (2) Atrial fibrillation with rapid ventricular response: Status: Acute (3) Foot pain: Status: Acute (4) DM type 2 (diabetes mellitus, type 2): Status: Acute (5) GERD (gastroesophageal reflux disease): Status: Acute (6) Gout: Status: Acute (7) Neuropathy: Status: Acute (8) Asthma: Status: Acute Reason for Visit Reason for Visit: SOB, cough has a fib Brief History: History as per HPI: Kathrin Ferreira is a 74 year old female with history of chronic A-fib, left atrial diameter less than 4 cm, preserved distal fraction, lives alone, history of gout, was recently discharged from the hospital after instructions to increase her metoprolol dose to 50 mg twice a day, presenting with chief complaint of worsening of shortness of breath. Patient is stating that she woke up this morning feeling short of breath, all day her symptoms persisted, she has been experiencing dry hacking cough, she has not noticed any nausea, vomiting diarrhea or fever. She is experiencing runny nose runny eyes and postnasal drip. No recent use of antibiotics. She decided to come to the hospital for her worsening of shortness of breath Chest x-ray is unremarkable, respiratory panel requested, patient was in A-fib RVR which improved with Cardizem 15 mg IV push, at the time of my evaluation she is in A-fib with heart rate between 90-100 She is hemodynamically stable Currently on room air Patient is stating that she is not sure about her medications name but she takes what ever is in her pillbox, she lives alone, Hospital Course Hospital Course Patient was admitted to the hospital further evaluation and management of atrial fibrillation with rapid ventricular response along with persistent foot pain. She was started on amiodarone drip though her heart rate remained difficult to control. There was also concern for mild shortness of breath on admission in setting of congestive heart failure for which she required IV diuresis. Her home dose of metoprolol was continued. Eventually while being on amiodarone after IV diuresis she converted back into normal sinus rhythm. For persistent foot pain for last 5 weeks while being treated for gout CT foot was done which ruled out any structural abnormalities or fracture. She was started on oral prednisone after which her difficulty in breathing and pain slightly subsided. She has been discharged in hemodynamically stable condition on oral amiodarone 200 mg twice daily for 1 week followed by 200 mg daily along with oral prednisone for next 7 days. She is also to take Jardiance instead of her home dose of metformin. Blood pressures during hospitalization remained stable hence her home dose of lisinopril hydrochlorothiazide combination has been discontinued. She is to follow-up with a primary care provider within next 1 to 2 weeks with a blood pressure diary. Physical Exam Narrative: General: No acute distress, AO x3, less anxious HEENT: PERRLA, pupils bilaterally equal and reactive Chest: Normal vesicular breath sounds, occasional rhonchi, occasional fine crackles bilateral lower zone, equal good air entry bilaterally CVS: S1-S2 irregularly irregular, no tachycardia, Soft pansystolic murmur at apex, no gallops, no rubs Abdomen: Soft, nontender, no organomegaly, bowel sounds present Neuro: No focal deficits, no facial deformity, AO x3, power 5/5 in all limbs Discharge Data Studies Completed and Pending Completed Studies During Hospitalization Category Date Time Status CT foot RT wo con* [id number] Routine Cat Scan 05/31/24 11:49 Completed XR chest 1V portable [id number] Stat Exams 05/30/24 21:21 Completed Pending at discharge Category Date Time Status MAG [Magnesium] AM LABS Lab 06/02/24 04:00 Ordered MAG [Magnesium] AM LABS Lab 06/03/24 04:00 Ordered Radiology Impressions Chest X-Ray 05/30/24 21:21 IMPRESSION: No definite acute cardiopulmonary findings. Foot CT 05/31/24 11:49 IMPRESSION: 1. Superficial soft tissue edema without discrete fluid collection or underlying acute osseous abnormality. Laboratory Results WBC 8.11 10^3/uL (3.29-11.43) 06/01/24 04:55 RBC 3.78 10^6/uL (3.85-5.65) L 06/01/24 04:55 Hgb 9.90 g/dL (11.27-16.99) L 06/01/24 04:55 Hct 31.9 % (36-47) L 06/01/24 04:55 MCV 84.4 fl (85-98) L 06/01/24 04:55 MCH 26.2 pg (27-33) L 06/01/24 04:55 MCHC 31.0 g/dL (30-55) 06/01/24 04:55 RDW 14.6 % (12.1-15.1) 06/01/24 04:55 Plt Count 206 10^3/cmm (157-399) D 06/01/24 04:55 MPV 11.2 fL (7.4-10.4) H 06/01/24 04:55 Neut % (Auto) 72.6 % 06/01/24 04:55 Lymph % (Auto) 13.7 % 06/01/24 04:55 [place] % (Auto) 12.1 % 06/01/24 04:55 Eos % (Auto) 0.6 % 06/01/24 04:55 Baso % (Auto) 0.5 % 06/01/24 04:55 Neut # (Auto) 5.89 10^3/uL (1.8-7.7) 06/01/24 04:55 Lymph # (Auto) 1.1 10^3/uL (0.8-4.8) 06/01/24 04:55 [place] # (Auto) 1.0 10^3/uL (0.2-0.9) H 06/01/24 04:55 Eos # (Auto) 0.1 10^3/uL (0.0-0.8) 06/01/24 04:55 Baso # (Auto) 0.0 10^3/uL (0.0-0.1) 06/01/24 04:55 Nucleated RBC % (auto) 0 % 06/01/24 04:55 Nucleated RBCs # 0.0 /100WBC 06/01/24 04:55 PT 15.90 SECONDS (12.1-14.9) H 05/30/24 21:37 INR 1.23 (0.8-1.2) H 05/30/24 21:37 APTT 29.5 SECONDS (23.9-36.7) 05/30/24 21:37 D-Dimer 0.57 ug/mLFEU (0-0.59) 05/31/24 11:00 Sodium 138 mmol/L (136-145) 06/01/24 04:55 Potassium 3.9 mmol/L (3.5-5.1) 06/01/24 04:55 Chloride 99 mmol/L (98-107) 06/01/24 04:55 Carbon Dioxide 28 mmol/L (22-29) 06/01/24 04:55 Anion Gap 14.9 (5-19) 06/01/24 04:55 BUN 21 mg/dL (8-23) 06/01/24 04:55 Creatinine 1.1 mg/dL (0.5-0.9) H 06/01/24 04:55 GFR Calculation Not Reportable 06/01/24 04:55 Glucose 66 mg/dL (65-115) 06/01/24 04:55 POC Glucose 87 mg/dL (70-110) 06/01/24 06:22 Calculated Osmolality 287 mOsm/kg (285-295) 06/01/24 04:55 Calcium 9.2 mg/dL (8.5-10.5) 06/01/24 04:55 Phosphorus 3.8 mg/dL (2.5-4.5) 05/31/24 03:12 Magnesium 2.0 mg/dL (1.7-2.3) 06/01/24 04:55 Iron 25 ug/dL (37-145) L 05/31/24 03:12 TIBC 365 mcg/dl 05/31/24 03:12 % Saturation 6.8 % (20-50) L 05/31/24 03:12 Unsat Iron Binding 340 ug/dL (112-347) 05/31/24 03:12 Total Bilirubin 0.5 mg/dL (0.15-1.2) 06/01/24 04:55 AST 17 U/L (0-32) 06/01/24 04:55 ALT 12 U/L (0-33) 06/01/24 04:55 Alkaline Phosphatase 132 U/L (35-105) H 06/01/24 04:55 Creatine Kinase 38 U/L (26-192) 05/30/24 21:37 Troponin T Baseline 19 ng/L (0-10) H 05/30/24 21:37 Troponin T 120 Minute 19.01 ng/L (0-10) H 05/30/24 22:59 Delta Troponin T 0.01 ABS# (0-10) 05/30/24 22:59 Troponin T Hi Sens 6Hr 19.11 ng/L (0-10) H 05/31/24 03:12 Troponin T Hi Sens 6Hr Delta 0.11 ng/L (0-12) 05/31/24 03:12 C-Reactive Protein 4.7 mg/L (0.0-4.9) 05/31/24 03:12 NT-Pro-B Natriuret Pep 1139 pg/mL (0-125) H 05/30/24 21:37 Total Protein 6.0 g/dL (6.6-8.7) L 06/01/24 04:55 Albumin 3.6 g/dL (3.5-5.2) 06/01/24 04:55 Globulin 2.4 g/dL (1.3-4.6) 06/01/24 04:55 Triglycerides 98 mg/dL (0-150) 06/01/24 04:55 Cholesterol 114 mg/dL (0-200) 06/01/24 04:55 LDL Cholesterol, Calc 44 mg/dL (50-129) L 06/01/24 04:55 Total VLDL Cholesterol 20 mg/dL (0-30) 06/01/24 04:55 HDL Cholesterol 50 mg/dL (60-100) L 06/01/24 04:55 Cholesterol/HDL Ratio 2.28 mg/dL (0.0-4.40) 06/01/24 04:55 Vitamin B12 262 pg/mL (232-1245) 05/31/24 03:12 Folate 14.1 ng/mL (4.8-37.3) 06/01/24 04:55 Procalcitonin 0.05 ng/mL (0-0.5) 05/31/24 03:12 TSH 1.50 uIU/mL (0.27-4.20) 05/30/24 21:37 Urine Color Yellow (Yellow) 05/31/24 03:37 Urine Appearance Clear (CLEAR) 05/31/24 03:37 Urine pH 6.0 (5-7) 05/31/24 03:37 Ur Specific [place] 1.011 (1.005-1.030) 05/31/24 03:37 Urine Protein Negative (Negative) 05/31/24 03:37 Urine Glucose (UA) Negative (Normal) 05/31/24 03:37 Urine Ketones Negative (Negative) 05/31/24 03:37 Urine Blood Negative (Negative) 05/31/24 03:37 Urine Nitrate Negative (Negative) 05/31/24 03:37 Urine Bilirubin Negative (Negative) 05/31/24 03:37 Urine Urobilinogen 1.0 mg/dL (Negative) 05/31/24 03:37 Ur Leukocyte Esterase Negative (Negative) 05/31/24 03:37 Urine RBC 0-2 /hpf (0-2) 05/31/24 03:37 Urine WBC 0-5 /hpf (0-5) 05/31/24 03:37 Ur Squamous Epith Cells 0-5 /hpf (0-5) 05/31/24 03:37 Amorphous Sediment Not Reportable 05/31/24 03:37 Urine Bacteria None seen /hpf (NONE) 05/31/24 03:37 Hyaline Casts 0-4 /lpf H 05/31/24 03:37 Nasal MRSA (PCR) Not detected (Not Detecte) 05/31/24 13:25 Coronavirus (PCR) Negative (Negative) 05/30/24 21:37 Influenza A (PCR) Negative (Negative) 05/30/24 21:37 Influenza Type B (PCR) Negative (Negative) 05/30/24 21:37 RSV (PCR) Negative (Negative) 05/30/24 21:37 Vitals Last Vital Signs Temp 97.7 F 06/01/24 07:32 Pulse 83 06/01/24 07:40 Resp 14 06/01/24 07:40 BP 111/64 06/01/24 07:32 Pulse Ox 94 06/01/24 07:40 O2 Del Method Room Air 06/01/24 07:40 Discharge Plan Discharge Patient Disposition: Home Condition: Fair Prescriptions: New prednisone 20 mg Tablet 40 mg PO DAILY Qty: 14 0RF alprazolam 0.5 mg Tablet 0.5 mg PO TID PRN (Reason: Anxiety) Qty: 10 0RF Jardiance 10 mg tablet 10 mg PO DAILY Qty: 30 0RF amiodarone 200 mg tablet 200 mg PO DAILY Qty: 60 0RF Rx Instructions: 200 mg twice daily for next 7 days followed by 200 mg daily ipratropium bromide 0.02 % Solution 0.5 mg inhalation TID Qty: 150 0RF levalbuterol HCl 1.25 mg/3 mL Solution For Nebulization 1.25 mg inhalation Q8H Qty: 150 0RF Continued insulin detemir U-100 100 unit/mL (3 mL) insulin pen 30 unit SUBCUT BID albuterol sulfate 2.5 mg /3 mL (0.083 %) solution for nebulization 2.5 mg inhalation Q4H PRN (Reason: Shortness Of Breath Or Wheezing) (DME) Boot See Rx Instructions .Route .MEDSUPPLY Qty: 1 0RF Rx Instructions: As directed colchicine 0.6 mg tablet See Rx Instructions PO DAILY Qty: 30 1RF Rx Instructions: 2 tablets on day 1, then 1 tablet daily x 5 days orally daily; ONLY USE WITH GOUT FLARES allopurinol 300 mg tablet 300 mg PO DAILY Qty: 90 1RF (DME) rollaid with seat See Rx Instructions .Route .MEDSUPPLY Qty: 1 0RF Rx Instructions: As directed Xarelto 20 mg tablet 20 mg PO DAILY Qty: 90 3RF Rx Instructions: 340B plan atorvastatin 40 mg tablet 40 mg PO BEDTIME mirtazapine 15 mg tablet 15 mg PO BEDTIME Rx Instructions: PT THINKS SHE TAKES THIS MEDICATION. paroxetine HCl 40 mg tablet 40 mg PO DAILY hydrocodone-acetaminophen 5-325 mg tablet 1 tab PO Q8H PRN (Reason: pain) Qty: 14 0RF Rx Instructions: Take 1/2 to 1 tab every 8 hours as needed for pain polyethylene glycol 3350 [Miralax] 17 gram/dose powder 17 g PO DAILY PRN (Reason: Constipation) Rx Instructions: Take 1 scoop daily while taking pain medications. nystatin 100,000 unit/gram Cream 1 applic topical BID 14 Days Qty: 30 0RF metoprolol tartrate 25 mg tablet 50 mg PO BID Qty: 90 3RF Changed omeprazole 20 mg capsule,delayed release(DR/EC) 20 mg PO DAILY Qty: 90 0RF Discontinued metformin 500 mg tablet 500 mg PO BID lisinopril-hydrochlorothiazide 20-12.5 mg tablet 1 tab PO DAILY Discharge Orders: Discharge Order (Routine); Ordered 06/01/24 Ordered By: Juanjose Fraga Referrals: Oskar Carrera MD [Primary Care Provider] - 2 weeks (We have notified your physician's clinic of the need for a follow-up appointment to be scheduled. If you have not heard from them within the next 2 business days, please call them directly. ) Patient Instructions: Alprazolam (By mouth) (Xanax, Xanax XR, alprazolam Intensol, Gabazolamin), Ipratropium (By breathing), Prednisone (By mouth) (Prednisone Intensol, Prednicot, Deltasone, Ajith), Amiodarone (By mouth) (Cordarone, Pacerone), Levalbuterol (By breathing), Empagliflozin (By mouth) (Jardiance), A-fib (Atrial Fibrillation) (DC), Gout (GEN), Diabetic Neuropathy (DC), Opioid Safety Activity Restrictions/Additional Instructions: Goal blood pressure is less than 140/90 mmHg. For now do not take your home dose of lisinopril and hydrochlorothiazide anymore. Please check your blood pressure daily at home maintain a blood pressure diary and follow-up with a primary care provider within next 2 weeks for further adjustment of antihypertensive. Take amiodarone 200 mg twice daily for for 1 week followed by 200 mg daily. Continue taking his Xarelto as before. Do not take metformin anymore. Instead take Jardiance. Take prednisone which should help you with your foot pain for next 7 days. Use nebulization twice daily going forward. Follow-up with a primary care provider within next 2 weeks. Discharge Attestations Time Spent in Discharge Care*: greater than 30 min Specific Discharge Activities: educating patient, discussing with pcp/other providers, discussing with case preparer and liner/social workers/dc planners, documenting/other paperwork and evaluating patient/reviewing data Status at Discharge: Cognitive status at discharge: cognitively intact, Behavioral status at discharge: cooperative, Functional status at discharge: independent ambulation, Overall status at discharge: patient is back to baseline Quality Metrics Clinical Quality Measures [ No reported AMI, CVA or VTE this stay] Coding Level of Care Code 12138 Total time (in minutes) for Discharge: 60 Diagnoses Intermittent atrial fibrillation I48.0 Atrial fibrillation with rapid ventricular response I48.91 Foot pain M79.673 DM type 2 (diabetes mellitus, type 2) E11.9 GERD (gastroesophageal reflux disease) K21.9 Gout M10.9 Neuropathy G62.9 Asthma J45.904
[2024-06-01 11:40] VITALS: BP 91/56; PULSE 60; RESP 20; TEMP 36.7; O2SAT 95
[2024-06-01] MEDS: amiodarone 200 mg Tablet PO (12:10)
[2024-06-01 12:12] LABS: Glucose Point of Care 129 mg/dL (70-110)
[2024-06-01 13:08] VITALS: BP 111/64; PULSE 83; RESP 14; TEMP 36.6; O2SAT 94
== END 2024-06-01 14:00 | disposition home or self-care (01) | DRG 309 ==
LOC: ER 21:21 → CSU 22:49
PROVIDERS: Admitting Provider Internal Medicine; Emergency Provider Emergency Medicine; PCP Family Medicine; Visit Provider Student in an Organized Health Care Education/Training Program
DX: I48.20 Chronic atrial fibrillation, unspecified (principal); I50.30 Unspecified diastolic (congestive) heart failure; M10.9 Gout, unspecified; E11.40 Type 2 diabetes mellitus with diabetic neuropathy, unspecified; F32.9 Major depressive disorder, single episode, unspecified; D50.9 Iron deficiency anemia, unspecified; K21.9 Gastro-esophageal reflux disease without esophagitis; F41.9 Anxiety disorder, unspecified; E78.5 Hyperlipidemia, unspecified; I11.0 Hypertensive heart disease with heart failure; J45.909 Unspecified asthma, uncomplicated; Z79.4 Long term (current) use of insulin; Z79.01 Long term (current) use of anticoagulants; Z79.84 Long term (current) use of oral hypoglycemic drugs; Z79.891 Long term (current) use of opiate analgesic; Z86.73 Personal history of transient ischemic attack (TIA), and cerebral infarction without residual deficits; Z82.3 Family history of stroke; Z83.3 Family history of diabetes mellitus; Z82.49 Family history of ischemic heart disease and other diseases of the circulatory system
CPT/HCPCS: 0241U; 36415; 36416; 71045; 73700; 80048; 80053; 80061; 81001; 82550; 82607; 82746; 82962; 83540; 83550; 83735; 83880; 84100; 84145; 84443; 84484; 85025; 85378; 85610; 85730; 86140; 86403; 93005; 94640; 96365; 96372; 96375; 96376; 99285; A4222; A9270; G0378; J0283; J1815; J1940; J3475; J3490; J7512; J7614; J7626; J7644; Q0144

== ENCOUNTER → 2024-06-23 11:23 | Outpatient (BNVA) | payer OTHER, SELFPAY | PROVIDERS: PCP Family Medicine; Visit Provider Emergency Medicine | DX: L03.115 Cellulitis of right lower limb (principal) | CPT/HCPCS: 73610; 80048; 84550; 85025 ==

== ENCOUNTER → 2024-07-22 14:07 | Outpatient (BNVA) | payer OTHER, SELFPAY | PROVIDERS: PCP Family Medicine; Visit Provider Podiatrist Foot & Ankle Surgery | DX: I73.9 Peripheral vascular disease, unspecified; E11.8 Type 2 diabetes mellitus with unspecified complications; Z79.4 Long term (current) use of insulin; S93.321A Subluxation of tarsometatarsal joint of right foot, initial encounter; X58.XXXA Exposure to other specified factors, initial encounter | CPT/HCPCS: 99213 ==

== ENCOUNTER 2024-07-27 09:33 | Emergency (ER) | payer OTHER, MEDICARE, SELFPAY ==
[2024-07-27] VITALS (8 sets, daily range): BP systolic 133–138; BP diastolic 85–91; PULSE 79–95; RESP 17–21; TEMP 36.7; O2SAT 89–95; BMI 37.0
--- NOTE | 2024-07-27 09:43 | ECG_ITS ---
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 Measurements Intervals [place] Rate: 83 P: 0 DC: 0 QRS: 26 QRSD: 93 T: 31 QT: 344 QTc: 405 Interpretive Statements ATRIAL FIBRILLATION MODERATE ST DEPRESSION [0.05+ mV ST DEPRESSION] Compared to ECG 05/31/2024 04:28:43 No significant changes Electronically Signed On 07-30-2024 00:04:15 MODEL DRESSER by Micah Bland M.D. [email or web address]
--- NOTE | 2024-07-27 09:59 | USR_ITS ---
PROCEDURE INFORMATION: Exam: US Duplex Right Lower Extremity Veins, Limited Exam date and time: 07/27/2024 10:37 AM Age: 74 years old Clinical indication: Swelling (edema) of limb; Lower extremity, right TECHNIQUE: Imaging protocol: Real-time duplex ultrasound of the right extremity with 2-D song scale, color Doppler flow and spectral waveform analysis including responses to compression and other maneuvers (when performed) with image documentation. Limited exam was focused on the right lower extremity veins. COMPARISON: CT foot RT wo con* [id number] 05/31/2024 2:22 PM FINDINGS: Right deep veins: Unremarkable. The common femoral, femoral, proximal profunda femoral and popliteal veins are patent without thrombus. Normal Doppler waveforms. Normal compressibility and/or augmentation response. Superficial veins: Greater saphenous vein at the saphenofemoral junction is patent without thrombus. Soft tissues: Unremarkable. US/[place] [id number] IMPRESSION: No evidence of deep vein thrombosis.
--- NOTE | 2024-07-27 09:59 | XRR_ITS ---
PROCEDURE INFORMATION: Exam: XR Chest Exam date and time: 07/27/2024 10:01 AM Age: 74 years old Clinical indication: Shortness of breath; Additional info: SOB TECHNIQUE: Imaging protocol: Radiologic exam of the chest. Views: 1 view. COMPARISON: CR XR chest 1V portable [id number] 05/30/2024 9:24 PM FINDINGS: Lungs: Unremarkable. No consolidation. Pleural spaces: Unremarkable. No pleural effusion. No pneumothorax. Heart/Mediastinum: There is a small hiatal hernia Bones/joints: Unremarkable. XR/XR chest 1V portable [id number] IMPRESSION: 1. No acute findings. 2. Small hiatal hernia
--- NOTE | 2024-07-27 10:01 | ED_ITS ---
HPI - SOB/Dyspnea 2 General: Chief Complaint: Shortness of Breath/Dyspnea Stated Complaint: sob Time Seen by Provider: 07/27/24 09:53 Source: patient Mode of arrival: ambulatory Limitations: no limitations History of Present Illness: HPI Narrative: 74-year-old female who states that she h as been having shortness of breath over the last 2 days states she has been having some mild dyspnea she has had a mild cough as well denies any fever she denies any chest pain states she has been having swelling to her right leg states that is been going on for some time. She denies any worsening improving factors. Associated symptoms: Deny abdominal pain, chest pain, fever(s), nausea or vomiting Related Data Home Medications Medication Instructions Recorded Confirmed acetaminophen 500 mg tablet 500 mg PO QID PRN Pain 07/27/24 07/27/24 (Tylenol Extra Strength) Previous Rx's Medication Instructions Recorded rollaid with seat #1 ea 05/28/24 ipratropium bromide 0.02 % 0.5 mg (2.5 mL) inhalation TID 06/01/24 solution for inhalation #150 mL levalbuterol HCl 1.25 mg/3 mL 1.25 mg (3 mL) inhalation Q8H #150 06/01/24 solution for nebulization mL diclofenac sodium 3 % topical gel 1 applic topical BID PRN muscle 06/23/24 pain, tension #100 grams albuterol sulfate 2.5 mg/3 mL 2.5 mg (3 mL) inhalation Q4H PRN 07/17/24 (0.083 %) solution for nebulization Shortness Of Breath Or Wheezing #75 mL allopurinol 300 mg tablet 300 mg PO DAILY #90 tabs 07/17/24 alprazolam 0.5 mg tablet 0.5 mg PO BID PRN Anxiety #30 tabs 07/17/24 amiodarone 200 mg tablet 200 mg PO DAILY #90 tabs 07/17/24 atorvastatin 40 mg tablet 40 mg PO BEDTIME #90 tabs 07/17/24 colchicine 0.6 mg tablet See Rx Instructions PO DAILY gout 07/17/24 flare #30 tabs metoprolol tartrate 50 mg tablet 50 mg PO BID #180 tabs 07/17/24 mirtazapine 15 mg tablet 15 mg PO BEDTIME #90 tabs 07/17/24 omeprazole 20 mg capsule,delayed 20 mg PO DAILY for aid reflux #90 07/17/24 release caps paroxetine HCl 40 mg tablet 40 mg PO DAILY #90 tabs 07/17/24 insulin glargine 100 unit/mL (3 25 unit (0.25 mL) SUBCUT BID #15 mL 07/18/24 mL) subcutaneous pen (Lantus Solostar U-100 Insulin) apixaban 5 mg tablet (Eliquis) 5 mg PO BID #180 tabs 07/22/24 sitagliptin phosphate 25 mg tablet 25 mg PO DAILY #60 tabs 07/22/24 (Januvia) Allergies Allergy/AdvReac Type Severity Reaction Status Date / Time sulfamethoxazole Allergy Intermediate ALGY-Hives Verified 07/27/24 09:53 [From Bactrim] trimethoprim [From Bactrim] Allergy Intermediate ALGY-Hives Verified 07/27/24 09:53 Review of Systems 2 Const: Denies: fever(s), chills, body aches or change in appetite ENMT: Denies: throat pain or dental pain Card: Denies: chest pain Resp: Reports: dyspnea GI: Denies: abdominal pain, nausea, vomiting or diarrhea Musc: Denies: neck pain or back pain Skin/Breast: Denies: rash Neuro: Denies: headache(s) PFSH ED 2 PFSH: Medical History Neuropathy Moderate major depression BRITTNEY (iron deficiency anemia) Gout GERD (gastroesophageal reflux disease) Atrial flutter Anxiety Hx of blood clots Fatigue Tachycardia Diabetes Weakness Hyperlipidemia DM type 2 (diabetes mellitus, type 2) Hypertension CVA (cerebral vascular accident) Asthma Surgical History History of bilateral carpal tunnel release History of esophagogastroduodenoscopy (EGD) 10 + years Hx of colonoscopy less than 10 years ago Hx of carpal tunnel repair bilateral Family History Mother Stroke Hypertension CAD (coronary artery disease) Diabetes Grandmother CAD (coronary artery disease) Cancer Diabetes Father CAD (coronary artery disease) Family/Other Lung disease Denies family history of Clotting disorder Dementia Chronic kidney disease (CKD) Suicide Anesthesia complication Bleeding disorder Social History Smoking and tobacco/nicotine status: unknown if used tobacco/nicotine Alcohol intake: never Substance/Drug Use: never Physical Exam 2 Const: COMMON NORMALS: no acute distress, patient oriented x3 and healthy appearing HENMT: COMMON NORMALS: normocephalic and atraumatic HEAD & SCALP: n ormocephalic and atraumatic Neck/C-Spine: COMMON NORMALS: full ROM and supple Chest: COMMONS NORMALS: normal inspection of the chest Resp: COMMON NORMALS: normal respiratory effort, No retractions, No use of accessory muscles and clear to auscultation bilaterally AUSCULTATION: clear to auscultation bilaterally Cardio: COMMON NORMALS: No murmurs present (Cardio) RATE: tachycardic R HYTHM: abnormal rhythm irregularly irregular GI: COMMON NORMALS: Normal to inspection, nondistended, normoactive bowel sounds present, Soft to palpation, non-tender and no masses PALPATION: Yes Soft to palpation Extremity: COMMON NORMALS: full ROM NARRATIVE EXTREMITY EXAM: swelling to rll Neuro: COMMON NORMALS: patient oriented x3, moves all extremities and no focal motor deficits Psych: COMMON NORMALS: mental status grossly normal, Normal thought process present and cooperative THOUGHT PROCESS: Normal thought process present Skin: COMMON NORMALS: no rashes or lesions noted and no wounds GENERAL SKIN EXAM: no rashes or lesions noted Course 2 Vital Signs: Vital signs: Vital Signs Temperature 98.1 F 07/27/24 09:50 Pulse Rate 87 07/27/24 11:57 Respiratory Rate 18 07/27/24 11:51 Blood Pressure 138/90 07/27/24 09:50 Pulse Oximetry 94 07/27/24 11:51 Oxygen Delivery Me thod Room Air 07/27/24 11:51 MDM - SOB/Dyspnea Medical Decision Making Patient presents here shortness of breath she is well-appearing here not requiring oxygen imaging blood work is normal no signs of PE no signs of acute coronary syndrome she is stable for discharge she is follow-up with PCP return if worsening. Medical Records I reviewed the patient's medical records. Lab Data I reviewed the patient's lab results. 07/27/24 10:07 07/27/24 10:07 Labs/Radiology: Radiology Impressions Chest X-Ray 07/27/24 09:59 IMPRESSION: 1. No acute findings. 2. Small hiatal hernia Venous Duplex 07/27/24 09:59 IMPRESSION: No evidence of deep vein thrombosis. Chest CTA 07/27/24 10:16 IMPRESSION: 1. Negative for pulmonary embolism. 2. Negative for right heart strain 3. Non reducible hiatal hernia 4. Calcified granuloma right lower lobe . Five normal thoracic aorta Laboratory Results WBC 12.28 10^3/uL (3.29-11.43) H 07/27/24 10:07 RBC 4.36 10^6/uL (3.85-5.65) 07/27/24 10:07 Hgb 10.50 g/dL (11.27-16.99) L 07/27/24 10:07 Hct 35.3 % (36-47) L 07/27/24 10:07 MCV 81.0 fl (85-98) L 07/27/24 10:07 MCH 24.1 pg (27-33) L 07/27/24 10:07 MCHC 29.7 g/dL (30-55) L 07/27/24 10:07 RDW 14.8 % (12.1-15.1) 07/27/24 10:07 Plt Count 406 10^3/cmm (157-399) H 07/27/24 10:07 MPV 9.8 fL (7.4-10.4) 07/27/24 10:07 Neut % (Auto) 77.4 % 07/27/24 10:07 Lymph % (Auto) 9.5 % 07/27/24 10:07 Motley % (Auto) 7.5 % 07/27/24 10:07 Eos % (Auto) 4.2 % 07/27/24 10:07 Baso % (Auto) 1.1 % 07/27/24 10:07 Neut # (Auto) 9.50 10^3/uL (1.8-7.7) H 07/27/24 10:07 Lymph # (Auto) 1.2 10^3/uL (0.8-4.8) 07/27/24 10:07 Motley # (Auto) 0.9 10^3/uL (0.2-0.9) 07/27/24 10:07 Eos # (Auto) 0.5 10^3/uL (0.0-0.8) 07/27/24 10:07 Baso # (Auto) 0.1 10^3/uL (0.0-0.1) 07/27/24 10:07 Nucleated RBC % (auto) 0 % 07/27/24 10:07 Nucleated RBCs # 0.0 /100WBC 07/27/24 10:07 PT 21.70 SECONDS (12.1-14.9) H 07/27/24 10:07 INR 1.77 (0.8-1.2) H 07/27/24 10:07 D-Dimer <= 0.27 ug/mLFEU (0-0.59) 07/27/24 10:07 Sodium 138 mmol/L (136-145) 07/27/24 10:07 Potassium 3.9 mmol/L (3.5-5.1) 07/27/24 10:07 Chloride 101 mmol/L (98-107) 07/27/24 10:07 Carbon Dioxide 27 mmol/L (22-29) 07/27/24 10:07 Anion Gap 13.9 (5-19) 07/27/24 10:07 BUN 19 mg/dL (8-23) 07/27/24 10:07 Creatinine 0.8 mg/dL (0.5-0.9) 07/27/24 10:07 GFR Calculation Not Reportable 07/27/24 10:07 Glucose 72 mg/dL (65-115) 07/27/24 10:07 Calculated Osmolality 287 mOsm/kg (285-295) 07/27/24 10:07 Calcium 9.6 mg/dL (8.5-10.5) 07/27/24 10:07 Total Bilirubin 1.0 mg/dL (0.15-1.2) 07/27/24 10:07 AST 15 U/L (0-32) 07/27/24 10:07 ALT 12 U/L (0-33) 07/27/24 10:07 Alkaline Phosphatase 175 U/L (35-105) H 07/27/24 10:07 Troponin T Baseline 13 ng/L (0-10) H 07/27/24 10:07 Troponin T 120 Minute 11.89 ng/L (0-10) H 07/27/24 11:41 Delta Troponin T -1.11 ABS# (0-10) L 07/27/24 11:41 Total Protein 5.8 g/dL (6.6-8.7) L 07/27/24 10:07 Albumin 3.9 g/dL (3.5-5.2) 07/27/24 10:07 Globulin 1.9 g/dL (1.3-4.6) 07/27/24 10:07 All radiology interpretation(s) finalized by discharge EKG Data EKG 1: I personally reviewed and interpreted this EKG as follows: EKG Interpretation Date: 07/27/24 EKG interpretation time: 09:43 Interpretation: afib hr [address] elevation qrs 93 qtc 383 Discharge Plan Discharge Patient Disposition: Home Clinical Impression: Dyspnea Condition: Stable Prescriptions: No Action (DME) rollaid with seat See Rx Instructions .Route .MEDSUPPLY Qty: 1 0RF Rx Instructions: As directed paroxetine HCl 40 mg tablet 40 mg PO DAILY Qty: 90 1RF omeprazole 20 mg capsule,delayed release(DR/EC) 20 mg PO DAILY Qty: 90 1RF mirtazapine 15 mg tablet 15 mg PO BEDTIME Qty: 90 1RF metoprolol tartrate 50 mg tablet 50 mg PO BID Qty: 180 1RF colchicine 0.6 mg tablet See Rx Instructions PO DAILY Qty: 30 1RF Rx Instructions: 2 tablets on day 1, then 1 tablet daily x 5 days orally daily; ONLY USE WITH GOUT FLARES atorvastatin 40 mg tablet 40 mg PO BEDTIME Qty: 90 1RF amiodarone 200 mg tablet 200 mg PO DAILY Qty: 90 1RF allopurinol 300 mg tablet 300 mg PO DAILY Qty: 90 1RF albuterol sulfate 2.5 mg /3 mL (0.083 %) solution for nebulization 2.5 mg inhalation Q4H PRN (Reason: Shortness Of Breath Or Wheezing) Qty: 75 3RF alprazolam 0.5 mg tablet 0.5 mg PO BID PRN (Reason: Anxiety) Qty: 30 0RF diclofenac sodium 3 % gel 1 applic topical BID PRN (Reason: muscle pain, tension) Qty: 100 0RF Rx Instructions: rub in well insulin glargine [Lantus Solostar U-100 Insulin] 100 unit/mL (3 mL) insulin pen 25 unit SUBCUT BID Qty: 15 2RF Eliquis 5 mg tablet 5 mg PO BID Qty: 180 1RF Rx Instructions: 340b Januvia 25 mg tablet 25 mg PO DAILY Qty: 60 1RF ipratropium bromide 0.02 % Solution 0.5 mg inhalation TID Qty: 150 0RF levalbuterol HCl 1.25 mg/3 mL Solution For Nebulization 1.25 mg inhalation Q8H Qty: 150 0RF acetaminophen [Tylenol Extra Strength] 500 mg Tablet 500 mg PO QID PRN (Reason: Pain) Discharge Orders: Discharge ED (Routine); Ordered 07/27/24 Ordered By: Brigido Pace Referrals: Oskar Carrera MD [Primary Care Provider] - 4-7 days Discharge Diet: Advance as tolerated Discharge Activity: Resume usual activity Patient Instructions: Dyspnea (ED) Coding Level of Care Code ED St[employer] for [facility]
--- NOTE | 2024-07-27 10:16 | CTR_ITS ---
PROCEDURE INFORMATION: Exam: CTA Chest With Contrast Exam date and time: 07/27/2024 10:57 AM Age: 74 years old Clinical indication: Shortness of breath; Additional info: SOB TECHNIQUE: Imaging protocol: Computed tomographic angiography of the chest with contrast. Exam focused on the arteries. 3D rendering (Not supervised by radiologist): MIP and/or 3D reconstructed images were created x the technologist. Radiation optimization: All CT scans at this facility use at least one of these dose optimization techniques: automated exposure control; mA and/or kV adjustment per patient size (includes targeted exams where dose is matched to clinical indication); or iterative reconstruction. Contrast material: OMNI 350; Contrast volume: 76 ml; Contrast route: INTRAVENOUS (IV); COMPARISON: CR (CHEST, ) 07/27/2024 10:01 AM RADIATION DOSE METRICS: Total DLP (mGy-cm): 474.72 FINDINGS: Pulmonary arteries: Normal. No pulmonary emboli. Aorta: Unremarkable. No aortic aneurysm. No aortic dissection. Lungs: There is a 10 mm calcified granuloma in the lateral aspect of the right lower lobe No consolidation. No masses. Pleural spaces: Unremarkable. No pneumothorax. No pleural effusion. Heart: Unremarkable. No cardiomegaly. No pericardial effusion. There is heavy coronary artery calcifications. No right heart strain RV/LV ratio 0.5 The thoracic aorta is not filled with intravenous contrast. Lymph nodes: There are a few nonspecific enlarged mediastinal lymph nodes. Bones/joints: There is severe spinal osteoarthritis with multilevel intervertebral disc space narrowing, bone spurs, and bridging. . No acute fracture. Soft tissues: There is a non reducible hiatal hernia measuring 7.6 cm x 4.4 cm x 7.1 cm x 4.[address]/CT angio chest PE protcl [id number] IMPRESSION: 1. Negative for pulmonary embolism. 2. Negative for right heart strain 3. Non reducible hiatal hernia 4. Calcified granuloma right lower lobe . Five normal thoracic aorta
[2024-07-27 10:21] LABS: Basophils # 0.1 10^3/uL (0.0-0.1); Basophils % 1.1 %; Eosinophils # 0.5 10^3/uL (0.0-0.8); Eosinophils % 4.2 %; Hematocrit 35.3 % (36-47); Lymphocytes # 1.2 10^3/uL (0.8-4.8); Lymphocytes % 9.5 %; Mean Corpuscular HGB Conc 29.7 g/dL (30-55); Mean Corpuscular Hemoglobin 24.1 pg (27-33); Mean Platelet Volume 9.8 fL (7.4-10.4); Monocytes # 0.9 10^3/uL (0.2-0.9); Monocytes % 7.5 %; Neutrophils % 77.4 %; Nucleated Red Blood Cells % 0 %; Platelet Count 406 10^3/cmm (157-399); Red Blood Count 4.36 10^6/uL (3.85-5.65); Red Cell Distribution Width 14.8 % (12.1-15.1); White Blood Count 12.28 10^3/uL (3.29-11.43)
[2024-07-27 10:39] LABS: Troponin(5th) Baseline 13 ng/L (0-10)
[2024-07-27 10:44] LABS: INR 1.77 (0.8-1.2)
[2024-07-27 10:45] LABS: Alanine Aminotransferase 12 U/L (0-33); Albumin Level 3.9 g/dL (3.5-5.2); Alkaline Phosphatase 175 U/L (35-105); Anion Gap 13.9 (5-19); Aspartate Amino Transferase 15 U/L (0-32); Blood Urea Nitrogen 19 mg/dL (8-23); Calcium 9.6 mg/dL (8.5-10.5); Carbon Dioxide 27 mmol/L (22-29); Chloride 101 mmol/L (98-107); Creatinine Clr Calc Pharmacy 61.0761; Globulin 1.9 g/dL (1.3-4.6); Glucose 72 mg/dL (65-115); Osmolality Calculated 287 mOsm/kg (285-295); Potassium 3.9 mmol/L (3.5-5.1); Sodium 138 mmol/L (136-145); Total Protein 5.8 g/dL (6.6-8.7)
[2024-07-27 10:46] LABS: D Dimer <= 0.27 ug/mLFEU (0-0.59)
[2024-07-27] MEDS: iohexol 350 mg/mL 500 mL Btl (per mL) IV (11:02)
[2024-07-27] MEDS: ipratropium-albuterol 3 mL Neb INHALATION (11:50)
[2024-07-27 12:23] LABS: Troponin 5 2HR 11.89 ng/L (0-10); Troponin 5 2HR Delta -1.11 ABS# (0-10)
== END 2024-07-27 13:00 | disposition home or self-care (01) ==
PROVIDERS: Emergency Provider Emergency Medicine; PCP Family Medicine
DX: R06.00 Dyspnea, unspecified (principal); Z79.01 Long term (current) use of anticoagulants; Z79.4 Long term (current) use of insulin; Z86.73 Personal history of transient ischemic attack (TIA), and cerebral infarction without residual deficits; E11.9 Type 2 diabetes mellitus without complications; I10 Essential (primary) hypertension; E78.5 Hyperlipidemia, unspecified
CPT/HCPCS: 36415; 71045; 71275; 80053; 84484; 85025; 85378; 85610; 93005; 93971; 94640; 99285

== ENCOUNTER 2024-08-07 14:24 | Emergency (ER) | payer OTHER, SELFPAY ==
--- NOTE | 2024-08-07 14:26 | XR_ITS ---
WS: [id number] Portable AP upright chest, 08/07/2024 Clinical Data: sob Comparison: Portable chest, 07/27/2024 Findings: Bilateral patchy opacities are present. The opacities are distinct in the right upper lobe and in the left lower lobe. No nodules or masses are seen. There may be a small right pleural effusio n. The heart is at the upper limits of normal. The aortic arch shows calcification along with tortuos ity of the descending thoracic aorta. No pneumothorax is seen. The pulmonary vascularity is not remar kable. There is an orthopedic anchor in the right humeral head. There may be a small hiatal hernia. XR/XR chest 1V portable [id number] Impression: 1. Patchy opacities in right upper lobe and left upper lobe which could represe nt minimal pneumonia. 2. Cardiomegaly, atherosclerosis and small right pleural effusion.
[2024-08-07 14:30] VITALS: BP 146/86; PULSE 94; RESP 22; TEMP 36.6; O2SAT 95
--- NOTE | 2024-08-07 14:37 | ECG_ITS ---
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 Measurements Intervals [place] Rate: 96 P: 209 [place]: 279 QRS: 1 QRSD: 87 T: 0 QT: 253 QTc: 320 Interpretive Statements ECTOPIC ATRIAL RHYTHM WITH FIRST DEGREE AV BLOCK LOW QRS VOLTAGE IN PRECORDIAL LEADS [QRS DEFLECTION < 1.0 mV IN CHEST LEADS] NONSPECIFIC ST & T-WAVE ABNORMALITY Compared to ECG 07/27/2024 09:43:54 Ectopic atrial rhythm now present First degree AV block now present Low QRS voltage now present T-wave abnormality now present Atrial fibrillation no longer present ST (T wave) deviation no longer present Electronically Signed On 08-08-2024 09:01:53 POLYGRAPH EXAMINER by Jonathan Chavarria M.D. [email or web address]
[2024-08-07 15:19] LABS: Basophils # 0.2 10^3/uL (0.0-0.1); Basophils % 1.5 %; Eosinophils # 0.8 10^3/uL (0.0-0.8); Eosinophils % 8.1 %; Hematocrit 32.1 % (36-47); Lymphocytes # 1.3 10^3/uL (0.8-4.8); Mean Corpuscular HGB Conc 29.3 g/dL (30-55); Mean Corpuscular Hemoglobin 24.2 pg (27-33); Mean Corpuscular Volume 82.7 fl (85-98); Mean Platelet Volume 9.5 fL (7.4-10.4); Monocytes # 0.7 10^3/uL (0.2-0.9); Monocytes % 6.5 %; Neutrophils # 7.16 10^3/uL (1.8-7.7); Neutrophils % 70.4 %; Nucleated Red Blood Cells % 0 %; Platelet Count 362 10^3/cmm (157-399); Red Blood Count 3.88 10^6/uL (3.85-5.65); Red Cell Distribution Width 15.9 % (12.1-15.1); White Blood Count 10.16 10^3/uL (3.29-11.43)
[2024-08-07 15:29] LABS: INR 2.72 (0.8-1.2)
[2024-08-07 15:43] LABS: Alanine Aminotransferase 11 U/L (0-33); Albumin Level 3.6 g/dL (3.5-5.2); Alkaline Phosphatase 178 U/L (35-105); Anion Gap 17.9 (5-19); Aspartate Amino Transferase 15 U/L (0-32); Blood Urea Nitrogen 20 mg/dL (8-23); Calcium 9.1 mg/dL (8.5-10.5); Carbon Dioxide 23 mmol/L (22-29); Chloride 102 mmol/L (98-107); Creatinine Clr Calc Pharmacy 62.8696; Globulin 2.8 g/dL (1.3-4.6); Glucose 137 mg/dL (65-115); NT Pro B Type Natriuretic Pept 1781 pg/mL (0-125); Osmolality Calculated 293 mOsm/kg (285-295); Potassium 3.9 mmol/L (3.5-5.1); Sodium 139 mmol/L (136-145); Total Bilirubin 0.7 mg/dL (0.15-1.2); Total Protein 6.4 g/dL (6.6-8.7)
[2024-08-07 15:57] VITALS: BP 139/117; PULSE 97; O2SAT 95
[2024-08-07 16:02] LABS: Covid PCR NEGATIVE (Negative); Influenza A NEGATIVE (Negative); Influenza B NEGATIVE (Negative); Respiratory Syncytial Virus Ce NEGATIVE (Negative)
--- NOTE | 2024-08-07 16:04 | ED_ITS ---
HPI - SOB/Dyspnea 2 General: Chief Complaint: Shortness of Breath/Dyspnea Stated Complaint: sob Time Seen by Provider: 08/07/24 15:45 History of Present Illness: HPI Narrative: Patient presents with shortness of breath that has been going on for a couple of weeks. She feels like it is getting worse and that she cannot catch her breath patient has been seen in the ER multiple times along with her primary care provider in urgent care. She reports that nothing seems to make it better. She is on inhalers and nebulizers at home. No reports of fever, chills or other systemic complaints. Associated symptoms: Deny abdominal pain, fever(s), nausea or vomiting Related Data Home Medications Medication Instructions Recorded Confirmed acetaminophen 500 mg tablet 500 mg PO QID PRN Pain 07/27/24 08/07/24 (Tylenol Extra Strength) magnesium salicylate 162.5 1 tab PO Q6H 08/07/24 08/07/24 mg-caffeine 50 mg tablet (Diurex) Previous Rx's Medication Instructions Recorded rollaid with seat #1 ea 05/28/24 ipratropium bromide 0.02 % 0.5 mg (2.5 mL) inhalation TID 06/01/24 solution for inhalation #150 mL levalbuterol HCl 1.25 mg/3 mL 1.25 mg (3 mL) inhalation Q8H #150 06/01/24 solution for nebulization mL diclofenac sodium 3 % topical gel 1 applic topical BID PRN muscle 06/23/24 pain, tension #100 grams albuterol sulfate 2.5 mg/3 mL 2.5 mg (3 mL) inhalation Q4H PRN 07/17/24 (0.083 %) solution for nebulization Shortness Of Breath Or Wheezing #75 mL allopurinol 300 mg tablet 300 mg PO DAILY #90 tabs 07/17/24 alprazolam 0.5 mg tablet 0.5 mg PO BID PRN Anxiety #30 tabs 07/17/24 amiodarone 200 mg tablet 200 mg PO DAILY #90 tabs 07/17/24 atorvastatin 40 mg tablet 40 mg PO BEDTIME #90 tabs 07/17/24 colchicine 0.6 mg tablet See Rx Instructions PO DAILY gout 07/17/24 flare #30 tabs metoprolol tartrate 50 mg tablet 50 mg PO BID #180 tabs 07/17/24 mirtazapine 15 mg tablet 15 mg PO BEDTIME #90 tabs 07/17/24 omeprazole 20 mg capsule,delayed 20 mg PO DAILY for aid reflux #90 07/17/24 release caps paroxetine HCl 40 mg tablet 40 mg PO DAILY #90 tabs 07/17/24 insulin glargine 100 unit/mL (3 25 unit (0.25 mL) SUBCUT BID #15 mL 07/18/24 mL) subcutaneous pen (Lantus Solostar U-100 Insulin) apixaban 5 mg tablet (Eliquis) 5 mg PO BID #180 tabs 07/22/24 sitagliptin phosphate 25 mg tablet 25 mg PO DAILY #60 tabs 07/22/24 (Januvia) furosemide 20 mg tablet (Lasix) 20 mg PO DAILY #20 tabs 08/07/24 ipratropium 0.5 mg-albuterol 3 mg 3 ml inhalation BID #90 mL 08/07/24 (2.5 mg base)/3 mL nebulization soln Allergies Allergy/AdvReac Type Severity Reaction Status Date / Time sulfamethoxazole Allergy Intermediate ALGY-Hives Verified 08/07/24 14:34 [From Bactrim] trimethoprim [From Bactrim] Allergy Intermediate ALGY-Hives Verified 08/07/24 14:34 Review of Systems 2 Const: Denies: fever(s) or chills Resp: Reports: dyspnea; Denies: productive cough or non-productive cough GI: Denies: abdominal pain, nausea or vomiting : Denies: flank pain Skin/Breast: Denies: rash Neuro: Denies: headache(s) PFSH ED 2 PFSH: Medical History Neuropathy Moderate major depression BRITTNEY (iron deficiency anemia) Gout GERD (gastroesophageal reflux disease) Atrial flutter Anxiety Hx of blood clots Fatigue Tachycardia Diabetes Weakness Hyperlipidemia DM type 2 (diabetes mellitus, type 2) Hypertension CVA (cerebral vascular accident) Asthma Surgical History History of bilateral carpal tunnel release History of esophagogastroduodenoscopy (EGD) 10 + years Hx of colonoscopy less than 10 years ago Hx of carpal tunnel repair bilateral Family History Mother Stroke Hypertension CAD (coronary artery disease) Diabetes Grandmother CAD (coronary artery disease) Cancer Diabetes Father CAD (coronary artery disease) Family/Other Lung disease Denies family history of Clotting disorder Dementia Chronic kidney disease (CKD) Suicide Anesthesia complication Bleeding disorder Social History Smoking and tobacco/nicotine status: unknown if used tobacco/nicotine Alcohol intake: never Substance/Drug Use: never Physical Exam 2 Const: COMMON NORMALS: patient oriented x3 GENERAL APPEARANCE: not in distress Resp: AUSCULTATION: no wheezes and diminished lung sounds Cardio: COMMON NORMALS: regular rate and regular rhythm RATE: regular rate RHYTHM: regular rhythm Extremity: COMMON NORMALS: full ROM and capillary refill normal Neuro: COMMON NORMALS: patient oriented x3 and CN's II-XII intact bilaterally Psych: COMMON NORMALS: mental status grossly normal Skin: COMMON NORMALS: no rashes or lesions noted and turgor normal GENERAL SKIN EXAM: no rashes or lesions noted and turgor normal Course 2 Vital Signs: Vital signs: Vital Signs Temperature 97.9 F 08/07/24 14:30 Pulse Rate 96 08/07/24 17:14 Respiratory Rate 16 08/07/24 16:37 Blood Pressure 139/117 08/07/24 17:14 Pulse Oximetry 94 08/07/24 17:14 Oxygen Delivery Me thod Room Air 08/07/24 16:37 Fraction of Inspir ed Oxygen 21 08/07/24 16:37 MDM - SOB/Dyspnea Medical Decision Making Patient's diagnostic studies are reviewed and interpreted by me. I discussed findings with patient. Patient x-ray shows possible minimal pneumonia however she does not have a increased cough, fever or any symptoms suggestive of pneumonia. She does have some increased edema and tried some [id number] water pills she did also improve with a DuoNeb. Patient requested some DuoNeb for home. So I provided her with Lasix 20 mg a day to help with some of her fluid overload as this is a chronic dyspnea along with some DuoNeb that she can use once morning once at night. She is unable to get an appointment with her primary care provider for ER follow-up until August 20 so I will give her enough medication to get to that appointment. She will return if her symptoms worsen. She is stable and discharged home Lab Data 08/07/24 15:00 08/07/24 15:00 Labs/Radiology: Radiology Impressions Chest X-Ray 08/07/24 14:26 Impression: 1. Patchy opacities in right upper lobe and left upper lobe which could represent minimal pneumonia. 2. Cardiomegaly, atherosclerosis and small right pleural effusion. Laboratory Results WBC 10.16 10^3/uL (3.29-11.43) 08/07/24 15:00 RBC 3.88 10^6/uL (3.85-5.65) 08/07/24 15:00 Hgb 9.40 g/dL (11.27-16.99) L 08/07/24 15:00 Hct 32.1 % (36-47) L 08/07/24 15:00 MCV 82.7 fl (85-98) L 08/07/24 15:00 MCH 24.2 pg (27-33) L 08/07/24 15:00 MCHC 29.3 g/dL (30-55) L 08/07/24 15:00 RDW 15.9 % (12.1-15.1) H 08/07/24 15:00 Plt Count 362 10^3/cmm (157-399) 08/07/24 15:00 MPV 9.5 fL (7.4-10.4) 08/07/24 15:00 Neut % (Auto) 70.4 % 08/07/24 15:00 Lymph % (Auto) 13.0 % 08/07/24 15:00 [place] % (Auto) 6.5 % 08/07/24 15:00 Eos % (Auto) 8.1 % 08/07/24 15:00 Baso % (Auto) 1.5 % 08/07/24 15:00 Neut # (Auto) 7.16 10^3/uL (1.8-7.7) 08/07/24 15:00 Lymph # (Auto) 1.3 10^3/uL (0.8-4.8) 08/07/24 15:00 [place] # (Auto) 0.7 10^3/uL (0.2-0.9) 08/07/24 15:00 Eos # (Auto) 0.8 10^3/uL (0.0-0.8) 08/07/24 15:00 Baso # (Auto) 0.2 10^3/uL (0.0-0.1) H 08/07/24 15:00 Nucleated RBC % (auto) 0 % 08/07/24 15:00 Nucleated RBCs # 0.0 /100WBC 08/07/24 15:00 PT 30.40 SECONDS (12.1-14.9) H 08/07/24 15:00 INR 2.72 (0.8-1.2) H 08/07/24 15:00 Sodium 139 mmol/L (136-145) 08/07/24 15:00 Potassium 3.9 mmol/L (3.5-5.1) 08/07/24 15:00 Chloride 102 mmol/L (98-107) 08/07/24 15:00 Carbon Dioxide 23 mmol/L (22-29) 08/07/24 15:00 Anion Gap 17.9 (5-19) 08/07/24 15:00 BUN 20 mg/dL (8-23) 08/07/24 15:00 Creatinine 0.8 mg/dL (0.5-0.9) 08/07/24 15:00 GFR Calculation Not Reportable 08/07/24 15:00 Glucose 137 mg/dL (65-115) H 08/07/24 15:00 Calculated Osmolality 293 mOsm/kg (285-295) 08/07/24 15:00 Calcium 9.1 mg/dL (8.5-10.5) 08/07/24 15:00 Total Bilirubin 0.7 mg/dL (0.15-1.2) 08/07/24 15:00 AST 15 U/L (0-32) 08/07/24 15:00 ALT 11 U/L (0-33) 08/07/24 15:00 Alkaline Phosphatase 178 U/L (35-105) H 08/07/24 15:00 NT-Pro-B Natriuret Pep 1781 pg/mL (0-125) H 08/07/24 15:00 Total Protein 6.4 g/dL (6.6-8.7) L 08/07/24 15:00 Albumin 3.6 g/dL (3.5-5.2) 08/07/24 15:00 Globulin 2.8 g/dL (1.3-4.6) 08/07/24 15:00 Coronavirus (PCR) Negative (Negative) 08/07/24 15:02 Influenza A (PCR) Negative (Negative) 08/07/24 15:02 Influenza Type B (PCR) Negative (Negative) 08/07/24 15:02 RSV (PCR) Negative (Negative) 08/07/24 15:02 All radiology interpretation(s) finalized by discharge Discharge Plan Discharge Patient Disposition: Home Clinical Impression: Chronic dyspnea, Lower extremity edema, Acute exacerbation of chronic obstructive airways disease Condition: Stable Prescriptions: New furosemide [Lasix] 20 mg tablet 20 mg PO DAILY Qty: 20 0RF ipratropium-albuterol 0.5 mg-3 mg(2.5 mg base)/3 mL solution for nebulization 3 ml inhalation BID Qty: 90 0RF No Action (DME) rollaid with seat See Rx Instructions .Route .MEDSUPPLY Qty: 1 0RF Rx Instructions: As directed paroxetine HCl 40 mg tablet 40 mg PO DAILY Qty: 90 1RF omeprazole 20 mg capsule,delayed release(DR/EC) 20 mg PO DAILY Qty: 90 1RF mirtazapine 15 mg tablet 15 mg PO BEDTIME Qty: 90 1RF metoprolol tartrate 50 mg tablet 50 mg PO BID Qty: 180 1RF colchicine 0.6 mg tablet See Rx Instructions PO DAILY Qty: 30 1RF Rx Instructions: 2 tablets on day 1, then 1 tablet daily x 5 days orally daily; ONLY USE WITH GOUT FLARES atorvastatin 40 mg tablet 40 mg PO BEDTIME Qty: 90 1RF amiodarone 200 mg tablet 200 mg PO DAILY Qty: 90 1RF allopurinol 300 mg tablet 300 mg PO DAILY Qty: 90 1RF albuterol sulfate 2.5 mg /3 mL (0.083 %) solution for nebulization 2.5 mg inhalation Q4H PRN (Reason: Shortness Of Breath Or Wheezing) Qty: 75 3RF alprazolam 0.5 mg tablet 0.5 mg PO BID PRN (Reason: Anxiety) Qty: 30 0RF diclofenac sodium 3 % gel 1 applic topical BID PRN (Reason: muscle pain, tension) Qty: 100 0RF Rx Instructions: rub in well insulin glargine [Lantus Solostar U-100 Insulin] 100 unit/mL (3 mL) insulin pen 25 unit SUBCUT BID Qty: 15 2RF Eliquis 5 mg tablet 5 mg PO BID Qty: 180 1RF Rx Instructions: 340b Januvia 25 mg tablet 25 mg PO DAILY Qty: 60 1RF ipratropium bromide 0.02 % Solution 0.5 mg inhalation TID Qty: 150 0RF levalbuterol HCl 1.25 mg/3 mL Solution For Nebulization 1.25 mg inhalation Q8H Qty: 150 0RF acetaminophen [Tylenol Extra Strength] 500 mg Tablet 500 mg PO QID PRN (Reason: Pain) Diurex 162.5-50 mg Tablet 1 tab PO Q6H Discharge Orders: Discharge ED (Routine); Ordered 08/07/24 Ordered By: Mayito Us Referrals: Oskar Carrera MD [Primary Care Provider] - Discharge Diet: Usual diet Discharge Activity: Increase activity as tolerated Patient Instructions: Heart Failure (ED), Leg Edema (ED), Opioid Safety, Pain Management Activity Restrictions/Additional Instructions: Start Lasix once daily until you get follow-up with your primary care provider. You may use the new nebulizer solution once in the morning and once in the evening. 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
[2024-08-07 16:37] VITALS: PULSE 95; RESP 16; O2SAT 98
[2024-08-07] MEDS: ipratropium-albuterol 3 mL Neb INHALATION (16:40)
[2024-08-07 17:14] VITALS: BP 139/117; PULSE 96; O2SAT 94
== END 2024-08-07 17:15 | disposition home or self-care (01) ==
PROVIDERS: Emergency Medicine; Emergency Provider Student in an Organized Health Care Education/Training Program; PCP Family Medicine
DX: R06.09 Other forms of dyspnea (principal); R60.0 Localized edema; J44.1 Chronic obstructive pulmonary disease with (acute) exacerbation; Z79.4 Long term (current) use of insulin; Z79.01 Long term (current) use of anticoagulants; Z11.52 Encounter for screening for COVID-19; Z86.73 Personal history of transient ischemic attack (TIA), and cerebral infarction without residual deficits; E11.9 Type 2 diabetes mellitus without complications; I10 Essential (primary) hypertension; E78.5 Hyperlipidemia, unspecified
CPT/HCPCS: 36415; 71045; 80053; 83880; 85025; 85610; 87637; 93005; 94640; 99285

== ENCOUNTER → 2024-09-22 10:19 | Outpatient (BNVA) | payer OTHER, SELFPAY | PROVIDERS: PCP Family Medicine; Visit Provider Family Medicine | DX: E11.9 Type 2 diabetes mellitus without complications (principal); I48.91 Unspecified atrial fibrillation | CPT/HCPCS: 80048; 83036 ==

== ENCOUNTER → 2024-10-28 13:48 | Outpatient (BNVA) | payer OTHER, SELFPAY | PROVIDERS: PCP Family Medicine; Visit Provider Internal Medicine Cardiovascular Disease | DX: R07.9 Chest pain, unspecified (principal) | CPT/HCPCS: 93005 ==

== ENCOUNTER → 2024-11-05 07:46 | Outpatient (BNVA) | payer OTHER, SELFPAY | PROVIDERS: PCP Family Medicine; Visit Provider Nurse Practitioner Family | DX: R60.0 Localized edema (principal); R06.09 Other forms of dyspnea; I48.0 Paroxysmal atrial fibrillation; Z79.01 Long term (current) use of anticoagulants; I10 Essential (primary) hypertension; E78.5 Hyperlipidemia, unspecified; E87.6 Hypokalemia; J45.909 Unspecified asthma, uncomplicated; Z86.73 Personal history of transient ischemic attack (TIA), and cerebral infarction without residual deficits | CPT/HCPCS: 36415; 80048; 83880; 99214 ==

== ENCOUNTER 2024-11-27 07:40 | Inpatient (IN) | payer OTHER, SELFPAY ==
[2024-11-27] VITALS (13 sets, daily range): BP systolic 98–148; BP diastolic 48–95; PULSE 54–78; RESP 14–21; TEMP 36.1–37.1; O2SAT 82–99; BMI 39.4
--- NOTE | 2024-11-27 07:46 | XR_ITS ---
WS: [id number] Exam: XR chest 1V portable [id number] Date/Time of Exam: 11/27/2024 7:53 AM Reason For Exam: dyspnea/cough Comparison 08/07/2024. There is opacification in the RIGHT lower lung zone that could represent consolidation and atelectasis in the RIGHT lower lobe or might be artifactual secondary to tube angle. Remaining lungs are fully inflated. Chronic changes in the mid RIGHT lung. Heart size top limits normal. Hiatal hernia noted. No obvious pleural effusion. The mediastinum is normal in contour for technique. Bony structures are intact. Recommendations: A detailed PA and lateral chest would be suggested for more accurate evaluation. XR/XR chest 1V portable [id number] IMPRESSION: 1. Opacification in the RIGHT lower lung zone that may represent atelectasis or consolidation in the RIGHT lower lobe versus artifact from radiographic techni que. 2. Chronic changes in the mid RIGHT lung. Hiatal hernia.
--- NOTE | 2024-11-27 07:47 | W.ED.GENADLT ---
HPI - General Adult General: Chief complaint: Chest Pain Stated complaint: trouble breathing, afib Time Seen by Provider: 11/27/24 07:46 History of Present Illness: 74-year-old female presents emergency room complaining of difficulty breathing. She states for about the last day or 2 she has had difficulty breathing she has chronic orthopnea remained about at her usual baseline. She also has chronic bilateral swelling of her lower extremities which she states also has not really worsened. She has a history of atrial fibrillation she is on Xarelto. Patient ran out of her Lasix 3 days ago her room air sat on arrival here was 81% improved to 94% with 2 L. She does have some mild chest discomfort. She has this intermittently for a long period of time usually only last 20 minutes at a time she has not noticed anything that exacerbates or relieves it last night she had episode that lasted for several hours. No history of DVT or PE she denies any productive cough or hemoptysis. Associated symptoms: Reports chest pain and dyspnea; Deny rash Related Data Home Medications ?Medication ?Instructions ?Recorded ?Confirmed acetaminophen 500 mg tablet 500 mg PO QID PRN Pain 07/27/24 11/27/24 (Tylenol Extra Strength) furosemide 40 mg tablet 40 mg PO QAM 11/27/24 11/27/24 potassium chloride 20 mEq 20 meq PO BID 11/27/24 11/27/24 tablet,extended release rivaroxaban 20 mg tablet (Xarelto) 20 mg PO DAILY 11/27/24 11/27/24 Previous Rx's ?Medication ?Instructions ?Recorded allopurinol 300 mg tablet 300 mg PO DAILY #90 tabs 07/17/24 amiodarone 200 mg tablet 200 mg PO DAILY #90 tabs 07/17/24 atorvastatin 40 mg tablet 40 mg PO BEDTIME #90 tabs 07/17/24 mirtazapine 15 mg tablet 15 mg PO BEDTIME #90 tabs 07/17/24 omeprazole 20 mg capsule,delayed 20 mg PO DAILY for aid reflux #90 07/17/24 release caps paroxetine HCl 40 mg tablet 40 mg PO DAILY #90 tabs 07/17/24 ipratropium 0.5 mg-albuterol 3 mg 3 ml inhalation BID #90 mL 08/29/24 (2.5 mg base)/3 mL nebulization soln fluticasone 250 mcg-salmeterol 50 1 inh inhalation BID #60 ea 09/22/24 mcg/dose blistr powdr for inhalation (Advair Diskus) insulin glargine 100 unit/mL (3 25 unit (0.25 mL) SUBCUT BID #15 mL 09/22/24 mL) subcutaneous pen (Lantus Solostar U-100 Insulin) sitagliptin phosphate 25 mg tablet 25 mg PO DAILY #60 tabs 09/22/24 (Januvia) metoprolol tartrate 25 mg tablet 25 mg PO BID #180 tabs 10/28/24 metolazone 2.5 mg tablet 2.5 mg PO DAILY #4 tabs 11/05/24 alprazolam 0.5 mg tablet 0.5 mg PO BID PRN Anxiety #30 tabs 11/13/24 albuterol sulfate 2.5 mg/3 mL See Rx Instructions .Route 11/17/24 (0.083 %) solution for nebulization .COMPLEX #75 mL Allergies Allergy/AdvReac Type Severity Reaction Status Date / Time sulfamethoxazole (From Allergy Intermediate ALGY-Hives Verified 11/19/24 14:41 Bactrim) trimethoprim (From Bactrim) Allergy Intermediate ALGY-Hives Verified 11/19/24 14:41 Review of Systems Const: Denies: fever(s) or chills Card: Reports: chest pain, edema, swelling of feet/ankles, dyspnea on exertion and orthopnea Resp: Reports: dyspnea GI: Denies: abdominal pain : Denies: dysuria, urinary frequency or urinary urgency Musc: Denies: neck pain or back pain Skin/Breast: Denies: rash PFSH ED PFSH: Medical History CHF (congestive heart failure) Neuropathy Moderate major depression BRITTNEY (iron deficiency anemia) Gout GERD (gastroesophageal reflux disease) Atrial flutter Anxiety Hx of blood clots Fatigue Tachycardia Diabetes Weakness Hyperlipidemia DM type 2 (diabetes mellitus, type 2) Hypertension CVA (cerebral vascular accident) Asthma Surgical History History of bilateral carpal tunnel release History of esophagogastroduodenoscopy (EGD) 10 + years Hx of colonoscopy less than 10 years ago Hx of carpal tunnel repair bilateral Family History Mother Stroke Hypertension CAD (coronary artery disease) Diabetes Grandmother CAD (coronary artery disease) Cancer Diabetes Father CAD (coronary artery disease) Family/Other Lung disease Denies family history of Clotting disorder Dementia Chronic kidney disease (CKD) Suicide Anesthesia complication Bleeding disorder Social History Smoking and tobacco/nicotine status: never used tobacco/nicotine Alcohol intake: never Substance/Drug Use: never Physical Exam Const: GENERAL APPEARANCE: cooperative ORIENTATION/CONSCIOUSNESS: Yes awake HENMT: COMMON NORMALS: normocephalic, atraumatic and hearing grossly normal bilaterally HEAD & SCALP: normocephalic and atraumatic Resp: EFFORT & INSPECTION: No able to speak in complete sentences and Yes tachypneic AUSCULTATION: crackles and wheezes Cardio: COMMON NORMALS: regular rate, regular rhythm and No murmurs present (Cardio) RATE: regular rate RHYTHM: regular rhythm GI: COMMON NORMALS: Soft to palpation and No hepatosplenomegaly present AUSCULTATION: Yes normoactive bowel sounds PALPATION: Yes Soft to palpation, No Tenderness to palpation present (GI), No Guarding due to palpation present (GI) and Yes No hepatosplenomegaly present Extremity: COMMON NORMALS: normal to inspection, capillary refill normal, no clubbing, cyanosis or edema, no calf tenderness and no pedal edema Skin: COMMON NORMALS: no rashes or lesions noted GENERAL SKIN EXAM: no rashes or lesions noted Course Vital Signs: Vital signs: Vital Signs Temperature 98.1 F 11/27/24 07:47 Pulse Rate 78 11/27/24 10:03 Respiratory Rate 20 H 11/27/24 07:47 Blood Pressure 117/65 11/27/24 10:03 Pulse Oximetry 98 11/27/24 10:03 Oxygen Delivery Me thod Nasal Cannula 11/27/24 10:20 Oxygen Flow Rate 2.5 11/27/24 10:02 [facility] - General Adult Medical Decision Making Acute decompensated congestive heart failure likely came about due to not being on her Lasix for couple days. She is requiring oxygen now she has been given IV Lasix will discuss with hospitalist and admit. Patient in A-fib but rate is well-controlled at this time. Patient also noted to be significantly anemic. She denies any medic easier melena. We have ordered 1 unit of packed red blood cells. We were going to do a Hemoccult on her but before was able to return to the room with nurse police lieutenant patient had been admitted to the floor nursing staff is relay to the floor to do Hemoccult. Medical Records I reviewed the patient's medical records. Previous echocardiogram October 2022 showed ejection fraction at 60% Lab Data I reviewed the patient's lab results. 11/27/24 07:40 11/27/24 07:40 Radiology Impressions Chest X-Ray 11/27/24 07:46 IMPRESSION: 1. Opacification in the RIGHT lower lung zone that may represent atelectasis or consolidation in the RIGHT lower lobe versus artifact from radiographic technique. 2. Chronic changes in the mid RIGHT lung. Hiatal hernia. Laboratory Results WBC 10.01 10^3/uL (3.29-11.43) 11/27/24 07:40 RBC 4.21 10^6/uL (3.85-5.65) 11/27/24 07:40 Hgb 7.80 g/dL (11.27-16.99) L 11/27/24 07:40 Hct 28.5 % (36-47) L 11/27/24 07:40 MCV 67.7 fl (85-98) L 11/27/24 07:40 MCH 18.5 pg (27-33) L 11/27/24 07:40 MCHC 27.4 g/dL (30-55) L 11/27/24 07:40 RDW 17.8 % (12.1-15.1) H 11/27/24 07:40 Plt Count 397 10^3/cmm (157-399) 11/27/24 07:40 MPV 9.1 fL (7.4-10.4) 11/27/24 07:40 Neut % (Auto) 78.6 % 11/27/24 07:40 Lymph % (Auto) 9.5 % 11/27/24 07:40 [place] % (Auto) 8.5 % 11/27/24 07:40 Eos % (Auto) 1.5 % 11/27/24 07:40 Baso % (Auto) 1.4 % 11/27/24 07:40 Neut # (Auto) 7.87 10^3/uL (1.8-7.7) H 11/27/24 07:40 Lymph # (Auto) 1.0 10^3/uL (0.8-4.8) 11/27/24 07:40 [place] # (Auto) 0.9 10^3/uL (0.2-0.9) 11/27/24 07:40 Eos # (Auto) 0.2 10^3/uL (0.0-0.8) 11/27/24 07:40 Baso # (Auto) 0.1 10^3/uL (0.0-0.1) 11/27/24 07:40 Nucleated RBC % (auto) 0 % 11/27/24 07:40 Nucleated RBCs # 0.0 /100WBC 11/27/24 07:40 Specimen Type Arterial 11/27/24 08:18 Sample Site Radial, right 11/27/24 08:18 ABG pH 7.44 (7.35-7.45) 11/27/24 08:18 ABG pCO2 35.8 mmHg (35-45) 11/27/24 08:18 ABG pO2 79.0 mmHg (80.0-100.0) L 11/27/24 08:18 ABG HCO3 24.2 mmol/L (22-26) 11/27/24 08:18 ABG O2 Saturation 97.0 11/27/24 08:18 ABG Base Excess 0.2 mmol/L (-2.0-2.0) 11/27/24 08:18 González Test Pos 11/27/24 08:18 A-a O2 Gradient 3.1 mmHg (5-10) L 11/27/24 08:18 Hematocrit 23.5 % (37-47) L 11/27/24 08:18 Hgb O2 Saturation 94.9 % (95-100) L 11/27/24 08:18 Carboxyhemoglobin 1.9 %THgb (0.4-20.1) 11/27/24 08:18 Methemoglobin 0.3 % (0.4-1.5) L 11/27/24 08:18 Total Hemoglobin 7.7 g/dL (12-16) L 11/27/24 08:18 Sodium 138.0 mmol/L (131-143) 11/27/24 08:18 Potassium 4.1 mmol/L (3.5-5.0) 11/27/24 08:18 Glucose 168.0 mg/dL (70-115) H 11/27/24 08:18 Ionized Calcium 1.2 mmol/L (1.1-1.4) 11/27/24 08:18 O2 Delivery Device Nc 11/27/24 08:18 O2 Liters/Min 2.0 % 11/27/24 08:18 Warehouse Clerk ID [place] 11/27/24 08:18 Sodium 138 mmol/L (136-145) 11/27/24 07:40 Potassium 4.5 mmol/L (3.5-5.1) 11/27/24 07:40 Chloride 102 mmol/L (98-107) 11/27/24 07:40 Carbon Dioxide 22 mmol/L (22-29) 11/27/24 07:40 Anion Gap 18.5 (5-19) 11/27/24 07:40 BUN 17 mg/dL (8-23) 11/27/24 07:40 Creatinine 1.1 mg/dL (0.5-0.9) H 11/27/24 07:40 GFR Calculation Not Reportable 11/27/24 07:40 Glucose 164 mg/dL (65-115) H 11/27/24 07:40 Calculated Osmolality 291 mOsm/kg (285-295) 11/27/24 07:40 Calcium 8.9 mg/dL (8.5-10.5) 11/27/24 07:40 Total Bilirubin 1.0 mg/dL (0.15-1.2) 11/27/24 07:40 AST 35 U/L (0-32) H 11/27/24 07:40 ALT 21 U/L (0-33) 11/27/24 07:40 Alkaline Phosphatase 207 U/L (35-105) H 11/27/24 07:40 Troponin T Baseline 19 ng/L (0-10) H 11/27/24 07:40 C-Reactive Protein 17.7 mg/L (0.0-4.9) H 11/27/24 07:40 Total Protein 6.4 g/dL (6.6-8.7) L 11/27/24 07:40 Albumin 3.5 g/dL (3.5-5.2) 11/27/24 07:40 Globulin 2.9 g/dL (1.3-4.6) 11/27/24 07:40 Urine Color Yellow (Yellow) 11/27/24 08:02 Urine Appearance Clear (CLEAR) 11/27/24 08:02 Urine pH 7.0 (5-7) 11/27/24 08:02 Ur Specific [place] 1.015 (1.005-1.030) 11/27/24 08:02 Urine Protein Negative (Negative) 11/27/24 08:02 Urine Glucose (UA) Negative (Normal) 11/27/24 08:02 Urine Ketones Negative (Negative) 11/27/24 08:02 Urine Blood Negative (Negative) 11/27/24 08:02 Urine Nitrate Negative (Negative) 11/27/24 08:02 Urine Bilirubin Negative (Negative) 11/27/24 08:02 Urine Urobilinogen 2.0 mg/dL (Negative) H 11/27/24 08:02 Ur Leukocyte Esterase Negative (Negative) 11/27/24 08:02 Urine RBC 0-2 /hpf (0-2) 11/27/24 08:02 Urine WBC 0-5 /hpf (0-5) 11/27/24 08:02 Ur Squamous Epith Cells 0-5 /hpf (0-5) 11/27/24 08:02 Amorphous Sediment Not Reportable 11/27/24 08:02 Urine Bacteria None seen /hpf (NONE) 11/27/24 08:02 Hyaline Casts 0.40 /lpf 11/27/24 08:02 Influenza A (PCR) Negative (Negative) 11/27/24 08:56 Influenza Type B (PCR) Negative (Negative) 11/27/24 08:56 RSV (PCR) Negative (Negative) 11/27/24 08:56 SARS-CoV-2 (PCR) Negative (Negative) 11/27/24 08:56 All radiology interpretation(s) finalized by discharge Discharge Plan Discharge Patient Disposition: Admitted As Inpatient Admit Provider: Lonnie Mcdaniel Clinical Impression: CHF (congestive heart failure), Intermittent atrial fibrillation, Anemia Condition: Stable 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
--- NOTE | 2024-11-27 07:50 | ECG_ITS ---
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: : 1950 Requested By: Dannie Garcia Order Number: [id number] Reading MD: SAL MUNIZ Measurements Intervals Peck Rate: 71 P: 78 ID: [id number] QRS: 36 QRSD: 93 T: 62 QT: 402 QTc: 437 Interpretive Statements SINUS RHYTHM LOW QRS VOLTAGE IN PRECORDIAL LEADS [QRS DEFLECTION < 1.0 mV IN CHEST LEADS] POSSIBLE RIGHT VENTRICULAR CONDUCTION DELAY [RSR (QR) IN V1/V2] MINIMAL ST DEPRESSION [0.025+ mV ST DEPRESSION] Compared to ECG 10/28/2024 13:55:51 Low QRS voltage now present Sinus bradycardia no longer present ST (T wave) deviation still present Electronically Signed On 11-27-2024 23:30:11 CDT by SAL MUNIZ [email or web address]
[2024-11-27 07:59] LABS: Basophils # 0.1 10^3/uL (0.0-0.1); Basophils % 1.4 %; Eosinophils # 0.2 10^3/uL (0.0-0.8); Eosinophils % 1.5 %; Hematocrit 28.5 % (36-47); Lymphocytes % 9.5 %; Mean Corpuscular HGB Conc 27.4 g/dL (30-55); Mean Corpuscular Hemoglobin 18.5 pg (27-33); Mean Corpuscular Volume 67.7 fl (85-98); Mean Platelet Volume 9.1 fL (7.4-10.4); Monocytes # 0.9 10^3/uL (0.2-0.9); Monocytes % 8.5 %; Neutrophils # 7.87 10^3/uL (1.8-7.7); Neutrophils % 78.6 %; Nucleated Red Blood Cells % 0 %; Platelet Count 397 10^3/cmm (157-399); Red Blood Count 4.21 10^6/uL (3.85-5.65); Red Cell Distribution Width 17.8 % (12.1-15.1); White Blood Count 10.01 10^3/uL (3.29-11.43)
[2024-11-27] MEDS: FUROsemide 10 mg/mL SDV 4mL 40 MG IVP (08:12)
[2024-11-27 08:13] LABS: Bilirubin Urine Negative (Negative); Blood Urine Negative (Negative); Glucose Urine UA Negative (Normal); Ketones Urine Negative (Negative); Leukocyte Esterase Urine Negative (Negative); Nitrate Urine Negative (Negative); Protein Urine Negative (Negative); Specific Gravity, Urine 1.015 (1.005-1.030); Urine Appearance Clear (CLEAR); Urine Color Yellow (Yellow)
[2024-11-27 08:16] LABS: Troponin(5th) Baseline 19 ng/L (0-10)
[2024-11-27 08:19] LABS: Alanine Aminotransferase 21 U/L (0-33); Albumin Level 3.5 g/dL (3.5-5.2); Alkaline Phosphatase 207 U/L (35-105); Anion Gap 18.5 (5-19); Aspartate Amino Transferase 35 U/L (0-32); Blood Urea Nitrogen 17 mg/dL (8-23); Calcium 8.9 mg/dL (8.5-10.5); Carbon Dioxide 22 mmol/L (22-29); Chloride 102 mmol/L (98-107); Creatinine Clr Calc Pharmacy 45.9845; Globulin 2.9 g/dL (1.3-4.6); Glucose 164 mg/dL (65-115); Osmolality Calculated 291 mOsm/kg (285-295); Potassium 4.5 mmol/L (3.5-5.1); Sodium 138 mmol/L (136-145); Total Protein 6.4 g/dL (6.6-8.7)
[2024-11-27 08:24] LABS: Add Urine Microscopic? YES; Bacteria Urine None Seen /hpf; RBC Urine 0-2 /hpf (0-2); Squamous Epithelial Cell Urine 0-5 /hpf (0-5); WBC Urine 0-5 /hpf (0-5)
[2024-11-27 08:29] LABS: ABG PCO2 35.8 mmHg (35-45); ABG PH Result 7.44 (7.35-7.45); Alveolar-Arterial Oxygen Gradi 3.1 mmHg (5-10); Arterial Blood Gas Hematocrit 23.5 % (37-47); Base Excess ABG 0.2 mmol/L (-2.0-2.0); Blood Gas Allen Test Pos; Blood Gas Operator Identificat WALCI; Blood Gas Sample Site Radial, right; Blood Gas Sample Type Arterial; Carboxyhemoglobin 1.9 %THgb (0.4-20.1); HCO3 ABG 24.2 mmol/L (22-26); HGB O2 Sat 94.9 % (95-100); Ionized Calcium Level - ABG 1.2 mmol/L (1.1-1.4); Methemoglobin 0.3 % (0.4-1.5); Oxygen Device NC; Potassium Level - ABG 4.1 mmol/L (3.5-5.0); Total Hemoglobin 7.7 g/dL (12-16)
[2024-11-27 09:10] LABS: C Reactive Protein 17.7 mg/L (0.0-4.9)
--- NOTE | 2024-11-27 09:38 | PC.NURSE ---
report called to CSU, no further questions at end of report.
--- NOTE | 2024-11-27 09:46 | ECG_ITS ---
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
[2024-11-27 10:07] LABS: Troponin 5 2HR 23.44 ng/L (0-10); Troponin 5 2HR Delta 4.44 ABS# (0-10)
[2024-11-27 10:24] LABS: Influenza A NEGATIVE (Negative); Influenza B NEGATIVE (Negative); Respiratory Syncytial Virus Ce NEGATIVE (Negative); SARS-CoV-2 PCR NEGATIVE (Negative)
--- NOTE | 2024-11-27 11:08 | PM.HP ---
Providers/Chief Complaint Admitting Physician: Lonnie Mcdaniel Primary Care Provider: Oskar Carrera MD Chief Complaint: trouble breathing, afib History of Present Illness Kathrin Ferreira is a 74 year old female with a history of anemia presents with shortness of breath on exertion and swelling in the legs. The patient reports running out of Lasix in the last few days. There has been intermittent chest pressure, described as heaviness on the left side, which comes and goes and was present all morning on the day of admission. The patient denies cough, phlegm production, fever, nausea, vomiting, diarrhea, blood in stool, dark stools, or blood in urine. The patient notes that their feet are cold and sometimes appear purple, especially when swollen. The patient denies pain in the feet. The patient uses a walker at home but has been feeling weak lately and has difficulty getting around. The patient does not use home oxygen but reports that oxygen in the hospital has been helpful. There is no history of sleep apnea diagnosis, though a sleep study was attempted but not completed. The patient sometimes coughs after using a nebulizer, which helps clear phlegm. The patient is currently living alone, with plans to move to a halfway ([place]) in the coming week. The patient's is in a halfway. The patient has a history of Tourette's. No recent choking episodes or new rashes reported. The patient denies chest pain at the time of the interview. No recent changes in mental status reported. The patient has a son and two daughters who can make decisions if needed. High-yield negatives: denies chest pain (except as described), shortness of breath at rest, cough (except after nebulizer), fever, GI or bleeding, and new rashes. Review of Systems Const: Denies: fever(s), chills, body aches or malaise ENMT: Denies: throat pain Card: Reports: edema, dyspnea on exertion and other (Chest pressure and palpitations this morning); Denies: pre-syncope Resp: Reports: dyspnea; Denies: productive cough, change in phlegm color or hemoptysis GI: Denies: abdominal pain, nausea, vomiting, diarrhea, constipation, hematochezia or melena : Denies: flank pain, urinary frequency or hematuria Musc: Denies: back pain, joint swelling or joint redness Skin/Breast: Denies: rash or new lesions Neuro: Denies: headache(s) or confusion Medications/Allergies Home Medications ?Medication ?Instructions ?Recorded ?Confirmed ?Last Taken ?Type allopurinol 300 mg tablet 300 mg PO DAILY #90 tabs 07/17/24 11/27/24 08/07/24 Rx amiodarone 200 mg tablet 200 mg PO DAILY #90 tabs 07/17/24 11/27/24 11/27/24 Rx atorvastatin 40 mg tablet 40 mg PO BEDTIME #90 tabs 07/17/24 11/27/24 11/26/24 Rx mirtazapine 15 mg tablet 15 mg PO BEDTIME #90 tabs 07/17/24 11/27/24 11/26/24 Rx omeprazole 20 mg capsule,delayed 20 mg PO DAILY for aid reflux #90 07/17/24 11/27/24 11/26/24 Rx release caps paroxetine HCl 40 mg tablet 40 mg PO DAILY #90 tabs 07/17/24 11/27/24 11/27/24 Rx acetaminophen 500 mg tablet 500 mg PO QID PRN Pain 07/27/24 11/27/24 08/06/24 21:00 History (Tylenol Extra Strength) ipratropium 0.5 mg-albuterol 3 mg 3 ml inhalation BID #90 mL 08/29/24 11/27/24 Unknown Rx (2.5 mg base)/3 mL nebulization soln fluticasone 250 mcg-salmeterol 50 1 inh inhalation BID #60 ea 09/22/24 11/27/24 11/26/24 Rx mcg/dose blistr powdr for inhalation (Advair Diskus) insulin glargine 100 unit/mL (3 25 unit (0.25 mL) SUBCUT BID #15 mL 09/22/24 11/27/24 Unknown Rx mL) subcutaneous pen (Lantus Solostar U-100 Insulin) sitagliptin phosphate 25 mg tablet 25 mg PO DAILY #60 tabs 09/22/24 11/27/24 11/27/24 Rx (Januvia) metoprolol tartrate 25 mg tablet 25 mg PO BID #180 tabs 10/28/24 11/27/24 11/27/24 Rx metolazone 2.5 mg tablet 2.5 mg PO DAILY #4 tabs 11/05/24 11/27/24 Unknown Rx alprazolam 0.5 mg tablet 0.5 mg PO BID PRN Anxiety #30 tabs 11/13/24 11/27/24 11/27/24 Rx albuterol sulfate 2.5 mg/3 mL See Rx Instructions .Route 11/17/24 11/27/24 11/26/24 Rx (0.083 %) solution for nebulization .COMPLEX #75 mL furosemide 40 mg tablet 40 mg PO QAM 11/27/24 11/27/24 11/27/24 History potassium chloride 20 mEq 20 meq PO BID 11/27/24 11/27/24 11/27/24 History tablet,extended release rivaroxaban 20 mg tablet (Xarelto) 20 mg PO DAILY 11/27/24 11/27/24 11/27/24 History Allergies Allergy/AdvReac Type Severity Reaction Status Date / Time sulfamethoxazole (From Allergy Intermediate ALGY-Hives Verified 11/19/24 14:41 Bactrim) trimethoprim (From Bactrim) Allergy Intermediate ALGY-Hives Verified 11/19/24 14:41 PFSH Acute PFSH: Medical History CHF (congestive heart failure) Neuropathy Moderate major depression BRITTNEY (iron deficiency anemia) Gout GERD (gastroesophageal reflux disease) Atrial flutter Anxiety Hx of blood clots Fatigue Tachycardia Diabetes Weakness Hyperlipidemia DM type 2 (diabetes mellitus, type 2) Hypertension CVA (cerebral vascular accident) Asthma Surgical History History of bilateral carpal tunnel release History of esophagogastroduodenoscopy (EGD) 10 + years Hx of colonoscopy less than 10 years ago Hx of carpal tunnel repair bilateral Family History Mother Stroke Hypertension CAD (coronary artery disease) Diabetes Grandmother CAD (coronary artery disease) Cancer Diabetes Father CAD (coronary artery disease) Family/Other Lung disease Denies family history of Clotting disorder Dementia Chronic kidney disease (CKD) Suicide Anesthesia complication Bleeding disorder Social History Smoking and tobacco/nicotine status: never used tobacco/nicotine Alcohol intake: never Substance/Drug Use: never Vitals/I&O/Wt Last Vital Signs Temp 98.1 F 11/27/24 07:47 Pulse 78 11/27/24 10:03 Resp 20 H 11/27/24 07:47 BP 117/65 11/27/24 10:03 Pulse Ox 98 11/27/24 10:03 O2 Del Method Nasal Cannula 11/27/24 10:20 O2 Flow Rate 2.5 11/27/24 10:02 Weight last 48 hrs Weight 91.626 kg Physical Exam Const: COMMON NORMALS: patient oriented x3 and alert GENERAL APPEARANCE: cooperative ORIENTATION/CONSCIOUSNESS: Yes awake HENMT: COMMON NORMALS: oropharynx normal Neck/C-Spine: COMMON NORMALS: no JVD Resp: COMMON NORMALS: normal respiratory effort and clear to auscultation bilaterally AUSCULTATION: clear to auscultation bilaterally Cardio: COMMON NORMALS: no JVD, regular rhythm, S1 normal heart sound present, S2 normal heart sound present and No murmurs present (Cardio) RHYTHM: regular rhythm HEART SOUNDS: S1 normal heart sound present and S2 normal heart sound present GI: COMMON NORMALS: Normal to inspection, nondistended, normoactive bowel sounds present, Soft to palpation and non-tender PALPATION: Yes Soft to palpation Extremity: COMMON NORMALS: no joint enlargement GENERAL: Yes edema (3+) OTHER: Dusky discoloration of distal toes Neuro: COMMON NORMALS: patient oriented x3 and moves all extremities SENSORIUM/ORIENTATION: Yes alert Skin: COMMON NORMALS: no rashes or lesions noted GENERAL SKIN EXAM: no rashes or lesions noted Urinary Catheter Management: Felix: Cath Placed During This Visit: yes Urinary Catheter Date of Insertion: 11/27/24 Urinary Catheter Time of Insertion: 08:46 Data 11/27/24 07:40 11/27/24 07:40 A&P Assessment and plan (1) CHF (congestive heart failure): Acute diastolic congestive heart failure with severe exacerbation complicated by hypoxia, not normally on oxygen, new oxygen requirement of 2 L nasal cannula, saturation 82% on presentation, significant exertional dyspnea hypoxemia on ABG 79 on 2 L. Ran out of Lasix. Volume overload with lower extremity edema and shortness of breath : Patient presents with shortness of breath and leg swelling, with a history of running out of Lasix. Reviewed vitals, CBC, ABG, CMP, troponin series, UA, influenza, RSV, COVID, chest x-ray, ER provider note, discussed with ER provider. No chest pain at present, but intermittent chest pressure reported. No cough or fever. Physical exam shows cold, sometimes purple toes when swollen. Oxygen has been helpful in the hospital. No home oxygen use. No evidence of acute infection or decompensated heart failure at this time. - Restart IV Lasix to address fluid overload with 40 mg IV twice daily. Monitor for risk of electrolyte deficiency, CINDY, hypotension. Monitor intake and output, weight. - Monitor heart rhythm on telemetry - Reassess fluid status, kidney function, and electrolytes - Encouraged elevation of legs to reduce swelling, with noted dusky discoloration of distal toes. Denies any pain, sensory loss, movement issues. There are no ulcerations or other symptoms of acute or worsening ischemia. - Continue oxygen as needed (2) Anemia: Acute on chronic anemia hemoglobin down to 7.8, previously 9.4 back in July. History of anemia with current evidence of low hemoglobin. No GI or bleeding reported. No recent changes in mental status. Will monitor for ongoing blood loss or worsening anemia. -Repeat hemoglobin and blood counts during hospitalization Hemoccult requested. She is on Xarelto. Took it this morning. Will hold off Xarelto for now, continue with Lovenox in case needing discontinuation. (3) Debility: Progressive debility with acute congestive heart failure. Previously walking with a walker at home, but her has been at halfway and now with worsening functional capacity has been having difficulty with getting around. Will obtain PT evaluation. She states there have been arrangements in outpatient side to get her into SNF. Plan Possible pulmonary infiltrate (right lower lobe) : Chest x-ray shows possible infiltrate in the right lower lobe. No fever, normal white blood cell count, and no cough or sputum production except after nebulizer use. No current evidence of pneumonia, but will monitor for development of infection. - Monitor for fever, cough, or sputum production - Reassess blood counts and chest imaging as needed Incentive spirometer Atrial flutter: Continue Xarelto, amiodarone, metoprolol. DM2: Continue Lantus, sliding scale insulin. Consult carbohydrate diet. Monitor POC glucose. GERD: Continue PPI MDD: Continue mirtazapine, paroxetine HLD: Continue statin HTN: Monitor blood pressure, History of Tourette's syndrome : Patient has a history of Tourette's syndrome. No acute issues related to this during hospitalization. Son and his identified as surrogate decision maker if needed. PDMP PDMP Reviewed: Not Reviewed Attestations Medical Necessity Statement*: Admission over 2 midnights anticipated. Management of acute diastolic congestive heart failure with new hypoxia. Diagnoses CHF (congestive heart failure) I50.9 Anemia D64.9 Debility R53.81
[2024-11-27 12:04] LABS: Glucose Point of Care 135 mg/dL (70-110)
--- NOTE | 2024-11-27 13:51 | ECG_ITS ---
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1950 Requested By: Dannie Garcia Order Number: [id number] Reading MD: SAL MUNIZ Measurements Intervals [place] Rate: 58 P: -60 ND: 91 QRS: 19 QRSD: 68 T: 0 QT: 401 QTc: 396 Interpretive Statements SINUS BRADYCARDIA WITH SHORT ND INTERVAL LOW QRS VOLTAGE IN PRECORDIAL LEADS [QRS DEFLECTION < 1.0 mV IN CHEST LEADS] MODERATE ST DEPRESSION [0.05+ mV ST DEPRESSION] Compared to ECG 11/27/2024 11:42:05 Short ND interval now present ST (T wave) deviation now present Sinus rhythm no longer present T-wave abnormality no longer present Electronically Signed On 11-27-2024 23:37:53 CDT by SAL MUNIZ [id number] [id number]
[2024-11-27 16:18] LABS: Troponin 5 6HR 17.62 ng/L (0-10)
[2024-11-27 16:19] LABS: Troponin 5 6HR Delta -1.38 ng/L (0-12)
[2024-11-27] MEDS: insulin glargine 100 units/1 mL 25 UNIT SUBCUT (17:16)
[2024-11-27] MEDS: metoprolol tartrate 25 mg Tablet PO (17:16)
[2024-11-27] MEDS: potassium chloride ER 20 mEq Tablet PO (17:16)
[2024-11-27] MEDS: metOLazone 5 MG Tablet 2.5 MG PO (17:18)
[2024-11-27 17:38] LABS: Glucose Point of Care 137 mg/dL (70-110)
[2024-11-27] MEDS: ALPRAZolam 0.5 mg Tablet PO (18:38)
[2024-11-27] MEDS: atorvastatin 40 mg Tablet PO (20:20)
[2024-11-27] MEDS: mirtazapine 15 mg Tablet PO (20:20)
[2024-11-27 20:24] LABS: Glucose Point of Care 209 mg/dL (70-110)
[2024-11-27] MEDS: ipratropium-albuterol 3 mL Neb INHALATION (20:53)
[2024-11-28] VITALS (9 sets, daily range): BP systolic 102–136; BP diastolic 46–64; PULSE 50–56; RESP 17–19; TEMP 36.5–36.6; O2SAT 93–99
[2024-11-28 04:59] LABS: Basophils # 0.1 10^3/uL (0.0-0.1); Basophils % 1.6 %; Eosinophils # 0.4 10^3/uL (0.0-0.8); Eosinophils % 5.9 %; Hematocrit 28.4 % (36-47); Lymphocytes # 1.1 10^3/uL (0.8-4.8); Lymphocytes % 16.4 %; Mean Corpuscular HGB Conc 27.1 g/dL (30-55); Mean Corpuscular Hemoglobin 18.5 pg (27-33); Mean Corpuscular Volume 68.3 fl (85-98); Mean Platelet Volume 9.5 fL (7.4-10.4); Monocytes # 0.8 10^3/uL (0.2-0.9); Monocytes % 12.6 %; Neutrophils # 4.04 10^3/uL (1.8-7.7); Nucleated Red Blood Cells % 0 %; Platelet Count 404 10^3/cmm (157-399); Red Blood Count 4.16 10^6/uL (3.85-5.65); White Blood Count 6.41 10^3/uL (3.29-11.43)
[2024-11-28 05:15] LABS: Alanine Aminotransferase 18 U/L (0-33); Albumin Level 3.2 g/dL (3.5-5.2); Alkaline Phosphatase 187 U/L (35-105); Aspartate Amino Transferase 31 U/L (0-32); Blood Urea Nitrogen 18 mg/dL (8-23); Calcium 9.2 mg/dL (8.5-10.5); Carbon Dioxide 26 mmol/L (22-29); Chloride 101 mmol/L (98-107); Creatinine Clr Calc Pharmacy 49.0329; Globulin 3.4 g/dL (1.3-4.6); Glucose 124 mg/dL (65-115); Magnesium 1.8 mg/dL (1.7-2.3); Osmolality Calculated 287 mOsm/kg (285-295); Sodium 137 mmol/L (136-145); Total Bilirubin 0.9 mg/dL (0.15-1.2); Total Protein 6.6 g/dL (6.6-8.7)
[2024-11-28 06:36] LABS: Glucose Point of Care 144 mg/dL (70-110)
[2024-11-28] MEDS: ipratropium-albuterol 3 mL Neb INHALATION ×2 (09:09→21:02)
--- NOTE | 2024-11-28 09:20 | PC.SOCIAL ---
IMM Update Pg 2 of IMM updated and reviewed with patient, who verbalized understanding. Copy provided.
[2024-11-28] MEDS: pantoprazole DR 40 mg Tablet PO (09:34)
[2024-11-28] MEDS: allopurinol 300 mg Tablet PO (09:34)
[2024-11-28] MEDS: PARoxetine 20 mg Tablet 40 MG PO (09:34)
[2024-11-28] MEDS: metoprolol tartrate 25 mg Tablet PO ×2 (09:35→17:23)
[2024-11-28] MEDS: amiodarone 200 mg Tablet PO (09:35)
[2024-11-28] MEDS: enoxaparin 100 mg/mL Syringe 90 MG SUBCUT ×2 (09:35→20:07)
[2024-11-28] MEDS: insulin glargine 100 units/1 mL 25 UNIT SUBCUT ×2 (09:35→16:18)
[2024-11-28] MEDS: albumin 25 G/100 ML BAG 60 G IV (09:47)
--- NOTE | 2024-11-28 09:49 | P.PN_ITS ---
Subjective 2 Subjective: Subjectively she is breathing a bit better today. Still significant edema of bilateral lower extremities. Still requiring 1 L nasal cannula oxygen Vitals/I&O/Wt Last Vital Signs Temp 97.7 F 11/28/24 07:55 Pulse 56 L 11/28/24 08:00 Resp 18 11/28/24 08:00 BP 121/46 11/28/24 07:55 Pulse Ox 96 11/28/24 08:00 O2 Del Method Nasal Cannula 11/28/24 08:00 O2 Flow Rate 1 11/28/24 08:00 11/27/24 11/28/24 11/28/24 22:59 06:59 14:59 Intake Total 760 / 760 200 / 960 120 / 120 Output Total 800 / 3250 600 / 3850 Balance -40 / -2490 -400 / -2890 120 / 120 Weight last 48 hrs Weight 92.986 kg Weight 91.626 kg Physical Exam 2 Const: COMMON NORMALS: patient oriented x3 and alert GENERAL APPEARANCE: c ooperative ORIENTATION/CONSCIOUSNESS: Yes awake HENMT: COMMON NORMALS: oropharynx normal Neck/C-Spine: COMMON NORMALS: no JVD Resp: COMMON NORMALS: normal respiratory effort and clear to auscultation bilaterally AUSCULTATION: clear to auscultation bilaterally Cardio: COMMON NORMALS: no JVD, regular rhythm, S1 normal heart sound present, S2 normal heart sound present and No murmurs present (Cardio) RHYTHM: regular rhythm HEART SOUNDS: S1 normal heart sound present and S2 normal heart sound present GI: COMMON NORMALS: Normal to inspection, nondistended, normoactive bowel sounds present, Soft to palpation and non-tender PALPATION: Yes Soft to palpation Extremity: COMMON NORMALS: no joint enlargement GENERAL: Yes edema (3+) OTHER: Dusky discoloration of distal toes resolved Neuro: COMMON NORMALS: patient oriented x3 and moves all extremities S ENSORIUM/ORIENTATION: Yes alert Skin: COMMON NORMALS: no rashes or lesions noted GENERAL SKIN EXAM: no rashes or lesions noted Urinary Catheter Management: Felix: Cath Placed During This Visit: yes Reason for Continuing Indwelling Catheter: Acute Urinary Retention or Obstruction Urinary Catheter Date of Insertion: 11/27/24 Urinary Catheter Time of Insertion: 08:46 Data 11/28/24 03:49 11/28/24 03:49 A&P Assessment and plan (1) CHF (congestive heart failure): Acute diastolic congestive heart failure. Complicated by CINDY. Still requiring 1 L of oxygen. Dyspnea appears to be improving. Still with significant peripheral edema. Reviewed vitals, oxygen, intake and output, CBC, CMP, troponin series. Noted and negative balance. Noted with acute kidney injury, creatinine up 1.5. Discussed with her. Monitor for risk of flash pulmonary edema. Continue treatment of acute diastolic heart failure for now. However, we will recheck chemistry, in case of progressively worsening renal function may have to hold diuretic. Discussed with her, worsening renal function may portend worse prognosis in the setting of CHF treatment. Monitor intake and output. Reassess chemistry. Discussed with nursing, correctional case manager. - Monitor heart rhythm on telemetry - Reassess fluid status, kidney function, and electrolytes - Encouraged elevation of legs to reduce swelling, with noted dusky discoloration of distal toes. Denies any pain, sensory loss, movement issues. There are no ulcerations or other symptoms of acute or worsening ischemia. - Continue oxygen as needed (2) Anemia: Reviewed hemoglobin, so far unchanged at 7.7. So far tolerating anticoagulation with Lovenox. Previously 9.4 back in July. History of anemia with current evidence of low hemoglobin. No GI or bleeding reported. No recent changes in mental status. Will monitor for ongoing blood loss or worsening anemia. -Repeat hemoglobin and blood counts during hospitalization Hemoccult requested. She is on Xarelto. Took it this morning. Will hold off Xarelto for now, continue with Lovenox in case needing discontinuation. (3) Debility: Appreciate case management working on arrangements for SNF and PT working with her. Progressive debility with acute congestive heart failure. Previously walking with a walker at home, but her has been at care home and now with worsening functional capacity has been having difficulty with getting around. Plan Possible pulmonary infiltrate (right lower lobe) : Chest x-ray shows possible infiltrate in the right lower lobe. No fever, normal white blood cell count, and no cough or sputum production except after nebulizer use. No current evidence of pneumonia, but will monitor for development of infection. - Monitor for fever, cough, or sputum production - Reassess blood counts and chest imaging as needed Incentive spirometer Atrial flutter: Continue Xarelto, amiodarone, metoprolol. DM2: Continue Lantus, sliding scale insulin. Consult carbohydrate diet. Monitor POC glucose. GERD: Continue PPI MDD: Continue mirtazapine, paroxetine HLD: Continue statin HTN: Monitor blood pressure, History of Tourette's syndrome : Patient has a history of Tourette's syndrome. No acute issues related to this during hospitalization. Son and his identified as surrogate decision maker if needed. PDMP PDMP Reviewed: Not Reviewed Attestations 2 Medical Necessity Statement*: Continue admission for assessment and management of acute diastolic congestive heart failure with new hypoxia. and High MDM includes amount and/or complexity of data reviewed/ordered [ resulted lab(s)/test(s), ordered lab(s)/test(s) and other healthcare professional discussion] and described risk of complication, morbidity or mortality of management as documented Diagnoses CHF (congestive heart failure) I50.9 Anemia D64.9 Debility R53.81
[2024-11-28 11:13] LABS: Glucose Point of Care 196 mg/dL (70-110)
[2024-11-28] MEDS: potassium chloride ER 20 mEq Tablet PO ×2 (12:10→16:17)
[2024-11-28] MEDS: FUROsemide 10 mg/mL SDV 4mL 40 MG IVP (16:18)
[2024-11-28] MEDS: metOLazone 5 MG Tablet 2.5 MG PO (16:18)
[2024-11-28 16:53] LABS: Glucose Point of Care 129 mg/dL (70-110)
[2024-11-28] MEDS: mirtazapine 15 mg Tablet PO (20:07)
[2024-11-28] MEDS: atorvastatin 40 mg Tablet PO (20:07)
[2024-11-28 20:26] LABS: Glucose Point of Care 238 mg/dL (70-110)
[2024-11-29] VITALS (19 sets, daily range): BP systolic 101–136; BP diastolic 41–71; PULSE 52–60; RESP 16–21; TEMP 36.6–36.9; O2SAT 90–100
[2024-11-29 03:59] LABS: Basophils # 0.1 10^3/uL (0.0-0.1); Basophils % 1.5 %; Eosinophils # 0.4 10^3/uL (0.0-0.8); Eosinophils % 6.6 %; Hematocrit 27.6 % (36-47); Lymphocytes # 1.2 10^3/uL (0.8-4.8); Lymphocytes % 17.9 %; Mean Corpuscular HGB Conc 27.2 g/dL (30-55); Mean Corpuscular Hemoglobin 18.5 pg (27-33); Mean Corpuscular Volume 68.1 fl (85-98); Mean Platelet Volume 9.6 fL (7.4-10.4); Monocytes # 0.8 10^3/uL (0.2-0.9); Monocytes % 11.6 %; Neutrophils # 4.01 10^3/uL (1.8-7.7); Neutrophils % 61.8 %; Nucleated Red Blood Cells % 0 %; Platelet Count 379 10^3/cmm (157-399); Red Blood Count 4.05 10^6/uL (3.85-5.65); White Blood Count 6.49 10^3/uL (3.29-11.43)
[2024-11-29 04:28] LABS: Alanine Aminotransferase 18 U/L (0-33); Albumin Level 3.5 g/dL (3.5-5.2); Alkaline Phosphatase 172 U/L (35-105); Anion Gap 15.3 (5-19); Aspartate Amino Transferase 33 U/L (0-32); Blood Urea Nitrogen 21 mg/dL (8-23); Calcium 9.4 mg/dL (8.5-10.5); Carbon Dioxide 29 mmol/L (22-29); Chloride 97 mmol/L (98-107); Creatinine Clr Calc Pharmacy 56.5764; Globulin 3.1 g/dL (1.3-4.6); Glucose 107 mg/dL (65-115); Osmolality Calculated 287 mOsm/kg (285-295); Potassium 4.3 mmol/L (3.5-5.1); Sodium 137 mmol/L (136-145); Total Bilirubin 0.9 mg/dL (0.15-1.2); Total Protein 6.6 g/dL (6.6-8.7)
[2024-11-29] MEDS: FUROsemide 10 mg/mL SDV 4mL 40 MG IVP ×2 (04:48→17:06)
[2024-11-29 06:15] LABS: Glucose Point of Care 110 mg/dL (70-110)
[2024-11-29] MEDS: ipratropium-albuterol 3 mL Neb INHALATION ×2 (07:30→21:50)
[2024-11-29] MEDS: PARoxetine 20 mg Tablet 40 MG PO (08:43)
[2024-11-29] MEDS: potassium chloride ER 20 mEq Tablet PO ×2 (08:44→17:07)
[2024-11-29] MEDS: pantoprazole DR 40 mg Tablet PO (08:44)
[2024-11-29] MEDS: insulin glargine 100 units/1 mL 25 UNIT SUBCUT ×2 (08:44→17:07)
[2024-11-29] MEDS: allopurinol 300 mg Tablet PO (08:44)
[2024-11-29] MEDS: ALPRAZolam 0.5 mg Tablet PO (08:51)
--- NOTE | 2024-11-29 10:00 | USCV_ITS ---
Kathrin Ferreira Age: 74 Gender: F : 1950 Exam Date: 11/29/2024 13:58 Ordering Phys: Juanjose Fraga MD Technologist: Celso Melo Exam Location: [facility] [place] Indication: chf BP: 101 / 54 HR: 60 Rhythm: Sinus Technical Quality: Adequate MEASUREMENTS (Male / Female) Normal Values 2D ECHO LV Diastolic Diameter PLAX 3.7 cm 4.2 - 5.9 / 3.9 - 5.3 cm IVS Diastolic Thickness 0.9 cm 0.6 - 1.0 / 0.6 - 0.9 cm IVS Systolic Thickness 1.2 cm LVPW Diastolic Thickness 2.3 cm 0.6 - 1.0 / 0.6 - 0.9 cm LVPW Systolic Thickness 2.0 cm LVOT Diameter 2.0 cm LV Ejection Fraction 2D Teich 54.4 % LV Ejection Fraction MOD 4C 73.8 % LV Ejection Fraction MOD 2C 66.7 % LV Ejection Fraction 2C AL 66.0 % LA Diameter 3.6 cm RA Systolic Volume 4C AL 28.8 ml RA Systolic Volume 4C MOD 28.7 ml LA Sys Volume AL 43.0 cm cubed LA Sys Volume Index AL 21.5 cm cubed/m squared Aorta at Sinotubular Diameter 2.4 cm IVC Diameter 1.8 cm M-MODE LA Ao Ratio MM 1.7 AV Cusp Separation MM 1.8 cm DOPPLER AV Peak Velocity 172.0 cm/s LVOT Peak Velocity 91.0 cm/s AV Area Cont Eq vti 2.1 cm squared AV Area Cont Eq pk 1.6 cm squared MV Peak Velocity 133.0 cm/s MV Area PHT 4.3 cm squared Mitral E to A Ratio 2.0 TR Peak Velocity 359.0 cm/s TR Peak Gradient 51.6 mmHg TR Mean Velocity 289.0 cm/s TR Mean Gradient 35.5 mmHg TR Velocity Time Integral 86.7 cm PV Peak Velocity 161.0 cm/s RV Ejection Time 0.3 s FINDINGS Left Ventricle Normal left ventricular size, systolic function and wall thickness, with no regional wall motion abnormalities. Left ventricular ejection fraction is estimated at 65 %. Right Ventricle Normal right ventricular size and systolic function. Right Atrium Normal right atrial size. Left Atrium Normal left atrial size. Mitral Valve Mildly thickened mitral valve. Trace mitral valve regurgitation. Aortic Valve Mildly thickened aortic valve. No aortic valve stenosis. Tricuspid Valve Structurally normal tricuspid valve. Trace tricuspid valve regurgitation. Mildly elevated tricuspid gradient 35 mmHg (PA pressure 35-40 mmHg). Pulmonic Valve Pulmonic valve not well visualized. Trace pulmonary valve regurgitation. Pericardium No pericardial effusion. Aorta Normal size aortic root and proximal ascending aorta. IVC Normal inferior vena cava. CONCLUSIONS Normal left ventricular size and function. LVEF normal 65%. Normal chamber sizes. Normal RV size and systolic functions. Mild degenerative changes of the mitral and aortic valve without any significant functional abnormality. Mildly elevated right heart and pulmonary artery pressures (35- 40 mmHg). Marcial Crane MD (Electronically Signed) Final Date: 30 Nov 2024 10:58 S
--- NOTE | 2024-11-29 10:40 | PC.CHAP ---
Pastoral Care Encounter/Spiritual Assessment Type of Contact [] Declined assembler adjuster visit [] Patient/Family/Request visit [] Outpatient visit [] Follow-up visit [] Physician referral [] Code/Alert [x] Routine visit [] Staff referral [] Actively dying [] Patient sleeping [] Family support [] [] Out of room [] Palliative care [] [] Receiving care in room [] Pre-surgical visit [] Trauma [] Long length of stay [] ICU visit [] Other: Relational/Emotional Strength [x] Patient feels connected with others/family/visitors/staff [] Distress [] Loneliness/isolation [] Abandonment Spirituality of Patient [x] Person of Julissa [x] Attends Faith of their Julissa [x] Believes in Prayer [x] Reads Bible or Jainism materials [] There are Spiritual issues to be addressed Senior C Developer Interventions [x] Prayer [x] Active listening [x] Non-anxious presence [x] Spiritual/emotional support [] Crisis/trauma care [x] Spiritual counseling [] Bereavement support [] Provided bereavement packet [] Provided Bible/devotional materials [] Provided toy/stuffed animal, coloring book to patient or family member [] Provided Communion [] Anointing/[place] [] Salvation [] Completed spiritual assessment [] Other: Impact on Illness or Injury [] Angry [] Fearful [] Anxious [] Often cries [] Exhaustion [] Unable to work [] Unable to attend anabaptist [] Unable to walk/stand [] Unable to read [] Unable to drive [] Unable to eat/drink [] Unable to sleep [] Unable to be with family [] Patient intubated [] Other: Summary P Time spent with patient 30 min
[2024-11-29 10:42] LABS: Thyroid Stimulating Hormone 3.88 uIU/mL (0.27-4.20); Vitamin B12 416 pg/mL (232-1245)
[2024-11-29 10:52] LABS: Iron 19 ug/dL (37-145); Percent Saturation 5.6 % (20-50); Total Iron Binding Capacity 339 mcg/dl; Unsaturated Iron Binding 320 ug/dL (112-347)
--- NOTE | 2024-11-29 12:01 | PM.PN ---
Subjective Subjective: Hospital course, labs appreciated. Patient sitting comfortably in recliner. Seen with family at bedside. States she is feeling a lot better. Denies any nausea, vomiting, headache. On 2 L of oxygen supplementation. Appreciate urine output. Vitals/I&O/Wt Last Vital Signs Temp 968.4 F H 11/29/24 11:50 Pulse 57 L 11/29/24 11:50 Resp 20 H 11/29/24 11:50 BP 109/41 11/29/24 11:50 Pulse Ox 92 11/29/24 11:50 O2 Del Method Nasal Cannula 11/29/24 11:50 O2 Flow Rate 2 11/29/24 11:50 11/28/24 11/29/24 11/29/24 22:59 06:59 14:59 Intake Total 360 / 580 450 / 450 Output Total 900 / 1600 2850 / 4450 1500 / 1500 Balance -540 / -1020 -2850 / -3870 -1050 / -1050 Weight last 48 hrs Weight 92.986 kg Physical Exam Const: COMMON NORMALS: patient oriented x3 and alert GENERAL APPEARANCE: cooperative ORIENTATION/CONSCIOUSNESS: Yes awake HENMT: COMMON NORMALS: oropharynx normal Neck/C-Spine: COMMON NORMALS: no JVD Resp: COMMON NORMALS: normal respiratory effort and clear to auscultation bilaterally AUSCULTATION: clear to auscultation bilaterally Cardio: COMMON NORMALS: no JVD, regular rhythm, S1 normal heart sound present, S2 normal heart sound present and No murmurs present (Cardio) RHYTHM: regular rhythm HEART SOUNDS: S1 normal heart sound present and S2 normal heart sound present GI: COMMON NORMALS: Normal to inspection, nondistended, normoactive bowel sounds present, Soft to palpation and non-tender PALPATION: Yes Soft to palpation Extremity: COMMON NORMALS: no joint enlargement GENERAL: Yes edema (3+) OTHER: Dusky discoloration of distal toes resolved Neuro: COMMON NORMALS: patient oriented x3 and moves all extremities SENSORIUM/ORIENTATION: Yes alert Skin: COMMON NORMALS: no rashes or lesions noted GENERAL SKIN EXAM: no rashes or lesions noted Urinary Catheter Management: Felix: Cath Placed During This Visit: yes Reason for Continuing Indwelling Catheter: Other Urinary Catheter Date of Insertion: 11/27/24 Urinary Catheter Time of Insertion: 08:46 Data 11/29/24 03:18 11/29/24 03:18 A&P Assessment and plan (1) CHF (congestive heart failure): Acute diastolic congestive heart failure. Complicated by CINDY. Still requiring 1 L of oxygen. Dyspnea appears to be improving. Still with significant peripheral edema. Reviewed vitals, oxygen, intake and output, CBC, CMP, troponin series. Noted and negative balance. Noted with acute kidney injury, creatinine up 1.5. Discussed with her. Monitor for risk of flash pulmonary edema. Continue treatment of acute diastolic heart failure for now. However, we will recheck chemistry, in case of progressively worsening renal function may have to hold diuretic. Discussed with her, worsening renal function may portend worse prognosis in the setting of CHF treatment. Monitor intake and output. Reassess chemistry. Discussed with nursing, human services case manager. - Monitor heart rhythm on telemetry - Reassess fluid status, kidney function, and electrolytes - Encouraged elevation of legs to reduce swelling, with noted dusky discoloration of distal toes. Denies any pain, sensory loss, movement issues. There are no ulcerations or other symptoms of acute or worsening ischemia. - Continue oxygen as needed (2) Anemia: Reviewed hemoglobin, so far unchanged at 7.7. So far tolerating anticoagulation with Lovenox. Previously 9.4 back in July. History of anemia with current evidence of low hemoglobin. No GI or bleeding reported. No recent changes in mental status. Will monitor for ongoing blood loss or worsening anemia. -Repeat hemoglobin and blood counts during hospitalization Hemoccult requested. She is on Xarelto. Took it this morning. Will hold off Xarelto for now, continue with Lovenox in case needing discontinuation. (3) Debility: Appreciate case management working on arrangements for SNF and PT working with her. Progressive debility with acute congestive heart failure. Previously walking with a walker at home, but her has been at retirement and now with worsening functional capacity has been having difficulty with getting around. (4) Atrial fibrillation: (5) Bradycardia: (6) DM type 2 (diabetes mellitus, type 2): Plan Possible pulmonary infiltrate (right lower lobe) : Chest x-ray shows possible infiltrate in the right lower lobe. No fever, normal white blood cell count, and no cough or sputum production except after nebulizer use. No current evidence of pneumonia, but will monitor for development of infection. - Monitor for fever, cough, or sputum production - Reassess blood counts and chest imaging as needed Incentive spirometer Atrial flutter: Continue Xarelto, amiodarone, metoprolol. DM2: Continue Lantus, sliding scale insulin. Consult carbohydrate diet. Monitor POC glucose. GERD: Continue PPI MDD: Continue mirtazapine, paroxetine HLD: Continue statin HTN: Monitor blood pressure, History of Tourette's syndrome : Patient has a history of Tourette's syndrome. No acute issues related to this during hospitalization. Son and his identified as surrogate decision maker if needed. Plan for the day: Continue with aggressive diuresis. Hold off on metolazone. BNP improving. Continue Lasix 40 mg twice daily. Fluid restriction to less than 1500 cc. Keep Felix catheter for now. Plan to DC in next 24 hours. Check echocardiogram. Target hemoglobin more than 8. Check iron panel, vitamin B12 and folate levels. Hemoglobin steadily and stable at 7.5. Given significant debility, concern for diastolic heart failure will transfuse 1 unit of PRBC. Start on oral iron supplementation depending on iron panel. Does have bradycardia with heart rate running in mid 50s. Continue with home dose of amiodarone. Hold metoprolol. Continue with physical therapy. PDMP PDMP Reviewed: Not Reviewed Attestations Medical Necessity Statement*: Requires further hospitalization for management of anemia requiring blood transfusion patient admitted with diastolic heart failure requiring IV diuresis, bradycardia while safe discharge planning is sought Diagnoses CHF (congestive heart failure) I50.9 Anemia D64.9 Debility R53.81 Atrial fibrillation I48.91 Bradycardia R00.1 DM type 2 (diabetes mellitus, type 2) E11.9
[2024-11-29 12:45] LABS: Glucose Point of Care 116 mg/dL (70-110)
[2024-11-29] MEDS: sodium chloride 0.9% 100 mL Bag 50 ML IV (15:35)
[2024-11-29] MEDS: lanolin oint 7 gm 1 APPLIC TOPICAL (16:14)
[2024-11-29 16:46] LABS: Glucose Point of Care 159 mg/dL (70-110)
[2024-11-29 20:11] LABS: Glucose Point of Care 214 mg/dL (70-110)
[2024-11-29] MEDS: mirtazapine 15 mg Tablet PO (21:01)
[2024-11-29] MEDS: atorvastatin 40 mg Tablet PO (21:01)
[2024-11-30] VITALS (8 sets, daily range): BP systolic 108–157; BP diastolic 55–71; PULSE 59–86; RESP 16–25; TEMP 36.7–36.9; O2SAT 87–98
[2024-11-30 05:12] LABS: Basophils # 0.1 10^3/uL (0.0-0.1); Basophils % 1.7 %; Eosinophils # 0.4 10^3/uL (0.0-0.8); Eosinophils % 5.5 %; Hematocrit 32.4 % (36-47); Lymphocytes % 15.2 %; Mean Corpuscular HGB Conc 28.7 g/dL (30-55); Mean Corpuscular Volume 69.5 fl (85-98); Mean Platelet Volume 9.5 fL (7.4-10.4); Monocytes # 0.9 10^3/uL (0.2-0.9); Monocytes % 13.9 %; Neutrophils # 4.18 10^3/uL (1.8-7.7); Neutrophils % 63.2 %; Nucleated Red Blood Cells % 0 %; Platelet Count 410 10^3/cmm (157-399); Red Blood Count 4.66 10^6/uL (3.85-5.65); Red Cell Distribution Width 20.6 % (12.1-15.1)
[2024-11-30 05:35] LABS: Alanine Aminotransferase 19 U/L (0-33); Albumin Level 3.7 g/dL (3.5-5.2); Alkaline Phosphatase 178 U/L (35-105); Anion Gap 15.3 (5-19); Aspartate Amino Transferase 37 U/L (0-32); Blood Urea Nitrogen 23 mg/dL (8-23); Calcium 9.6 mg/dL (8.5-10.5); Carbon Dioxide 33 mmol/L (22-29); Chloride 94 mmol/L (98-107); Creatinine Clr Calc Pharmacy 38.7554; Globulin 3.4 g/dL (1.3-4.6); Glucose 109 mg/dL (65-115); Osmolality Calculated 290 mOsm/kg (285-295); Potassium 4.3 mmol/L (3.5-5.1); Sodium 138 mmol/L (136-145); Total Protein 7.1 g/dL (6.6-8.7)
[2024-11-30 05:52] LABS: Folate Level 5.5 ng/mL (4.8-37.3)
[2024-11-30 05:55] LABS: Chol HDL Ratio 2.74 mg/dL (0.0-4.40); Cholesterol 96 mg/dL (0-200); HDL Cholesterol 35 mg/dL (60-100); LDL Cholesterol Calculated 41 mg/dL (50-129); Magnesium 1.7 mg/dL (1.7-2.3); Triglycerides 101 mg/dL (0-150); VLDL Cholestrol Calculation 20 mg/dL (0-30)
[2024-11-30 05:59] LABS: Glucose Point of Care 118 mg/dL (70-110)
[2024-11-30] MEDS: ipratropium-albuterol 3 mL Neb INHALATION (07:28)
--- NOTE | 2024-11-30 07:59 | P.DS_ITS ---
Discharge Providers Date of Admission: 11/27/24 10:19 Date of Discharge: November 30, 2024 Attending Provider at Admission: Lonnie Mcdaniel Attending Provider at Discharge: Juanjose Fraga MD Primary Care Provider: Oskar Carrera MD Diagnoses at Discharge Discharge Diagnosis (1) CHF (congestive heart failure): Status: Acute (2) Anemia: Status: Acute (3) Debility: Status: Acute (4) Atrial fibrillation: Status: Acute (5) Bradycardia: Status: Acute (6) DM type 2 (diabetes mellitus, type 2): Status: Acute Reason for Visit Reason for Visit: trouble breathing, afib Brief History: History as per HPI: Kathrin Ferreira is a 74 year old female with a history of anemia presents with shortness of breath on exertion and swelling in the legs. The patient reports running out of Lasix in the last few days. There has been intermittent chest pressure, described as heaviness on the left side, which comes and goes and was present all morning on the day of admission. The patient denies cough, phlegm production, fever, nausea, vomiting, diarrhea, blood in stool, dark stools, or blood in urine. The patient notes that their feet are cold and sometimes appear purple, especially when swollen. The patient denies pain in the feet. The patient uses a walker at home but has been feeling weak lately and has difficulty getting around. The patient does not use home oxygen but reports that oxygen in the hospital has been helpful. There is no history of sleep apnea diagnosis, though a sleep study was attempted but not completed. The patient sometimes coughs after using a nebulizer, which helps clear phlegm. The patient is currently living alone, with plans to move to a residential ([place]) in the coming week. The patient's is in a residential. The patient has a history of Tourette's. No recent choking episodes or new rashes reported. The patient denies chest pain at the time of the interview. No recent changes in mental status reported. The patient has a son and two daughters who can make decisions if needed. High-yield negatives: denies chest pain (except as described), shortness of breath at rest, cough (except after nebulizer), fever, GI or bleeding, and new rashes. Hospital Course Hospital Course She was admitted to the hospital further evaluation and management of fluid overload in setting of congestive heart failure. She was started on aggressive IV diuresis. She was also found to be in acute kidney injury with concerns for possible right lower lobe infiltrate. She was started on broad-spectrum antibiotics. With diuresis she did have mild CINDY which resolved by adjusting fluid status. During hospitalization her hemoglobin remained stable though she received 1 unit of blood transfusion for hemoglobin below 8. Safe discharge laura n were discussed in detail with the patient and she wanted to be transition to SNF for further rehabitation. She is discharged in hemodynamically stable condition with counseling for congestive heart failure about lifestyle modification, Lasix 40 mg twice daily. She is to restrict her fluid intake to less than 1500 cc. She was found to have bradycardia for which her home dose of metoprolol has been stopped. Physical Exam Const: COMMON NORMALS: patient oriented x3 and alert GENERAL APPEARANCE: cooperative ORIENTATION/CONSCIOUSNESS: Yes awake HENMT: COMMON NORMALS: oropharynx normal Neck/C-Spine: COMMON NORMALS: no JVD Resp: COMMON NORMALS: normal respiratory effort and clear to auscultation bilaterally AUSCULTATION: clear to auscultation bilaterally Cardio: COMMON NORMALS: no JVD, regular rhythm, S1 normal heart sound present, S2 normal heart sound present and No murmurs present (Cardio) RHYTHM: regular rhythm HEART SOUNDS: S1 normal heart sound present and S2 normal heart sound present GI: COMMON NORMALS: Normal to inspection, nondistended, normoactive bowel sounds present, Soft to palpation and non-tender PALPATION: Yes Soft to palpation Extremity: COMMON NORMALS: no joint enlargement GENERAL: Yes edema (3+) OTHER: Dusky discoloration of distal toes resolved Neuro: COMMON NORMALS: patient oriented x3 and moves all extremities SENSORIUM/ORIENTATION: Yes alert Skin: COMMON NORMALS: no rashes or lesions noted GENERAL SKIN EXAM: no rashes or lesions noted Urinary Catheter Management: Felix: Cath Placed During This Visit: yes Reason for Continuing Indwelling Catheter: Other Urinary Catheter Date of Insertion: 11/27/24 Urinary Catheter Time of Insertion: 08:46 Discharge Data Studies Completed and Pending Completed Studies During Hospitalization Category Date Time Status XR chest 1V portable [id number] Stat Exams 11/27/24 07:46 Completed Pending at discharge Category Date Time Status MAG [Magnesium] AM LABS Lab 12/01/24 04:00 Ordered MAG [Magnesium] AM LABS Lab 12/02/24 04:00 Ordered Occult Blood Stool [Immunochemical Fecal OCB] Routine Lab 11/27/24 08:21 Uncollected CV. echo complete* [id number] Routine Ultrasound 11/29/24 10:00 Taken Radiology Impressions Chest X-Ray 11/27/24 07:46 IMPRESSION: 1. Opacification in the RIGHT lower lung zone that may represent atelectasis or consolidation in the RIGHT lower lobe versus artifact from radiographic technique. 2. Chronic changes in the mid RIGHT lung. Hiatal hernia. Laboratory Results WBC 6.60 10^3/uL (3.29-11.43) 11/30/24 04:10 RBC 4.66 10^6/uL (3.85-5.65) 11/30/24 04:10 Hgb 9.30 g/dL (11.27-16.99) L 11/30/24 04:10 Hct 32.4 % (36-47) L 11/30/24 04:10 MCV 69.5 fl (85-98) L 11/30/24 04:10 MCH 20.0 pg (27-33) L 11/30/24 04:10 MCHC 28.7 g/dL (30-55) L D 11/30/24 04:10 RDW 20.6 % (12.1-15.1) H 11/30/24 04:10 Plt Count 410 10^3/cmm (157-399) H 11/30/24 04:10 MPV 9.5 fL (7.4-10.4) 11/30/24 04:10 Neut % (Auto) 63.2 % 11/30/24 04:10 Lymph % (Auto) 15.2 % 11/30/24 04:10 Josephine % (Auto) 13.9 % 11/30/24 04:10 Eos % (Auto) 5.5 % 11/30/24 04:10 Baso % (Auto) 1.7 % 11/30/24 04:10 Neut # (Auto) 4.18 10^3/uL (1.8-7.7) 11/30/24 04:10 Lymph # (Auto) 1.0 10^3/uL (0.8-4.8) 11/30/24 04:10 Josephine # (Auto) 0.9 10^3/uL (0.2-0.9) 11/30/24 04:10 Eos # (Auto) 0.4 10^3/uL (0.0-0.8) 11/30/24 04:10 Baso # (Auto) 0.1 10^3/uL (0.0-0.1) 11/30/24 04:10 Nucleated RBC % (auto) 0 % 11/30/24 04:10 Nucleated RBCs # 0.0 /100WBC 11/30/24 04:10 Specimen Type Arterial 11/27/24 08:18 Sample Site Radial, right 11/27/24 08:18 ABG pH 7.44 (7.35-7.45) 11/27/24 08:18 ABG pCO2 35.8 mmHg (35-45) 11/27/24 08:18 ABG pO2 79.0 mmHg (80.0-100.0) L 11/27/24 08:18 ABG HCO3 24.2 mmol/L (22-26) 11/27/24 08:18 ABG O2 Saturation 97.0 11/27/24 08:18 ABG Base Excess 0.2 mmol/L (-2.0-2.0) 11/27/24 08:18 González Test Pos 11/27/24 08:18 A-a O2 Gradient 3.1 mmHg (5-10) L 11/27/24 08:18 Hematocrit 23.5 % (37-47) L 11/27/24 08:18 Hgb O2 Saturation 94.9 % (95-100) L 11/27/24 08:18 Carboxyhemoglobin 1.9 %THgb (0.4-20.1) 11/27/24 08:18 Methemoglobin 0.3 % (0.4-1.5) L 11/27/24 08:18 Total Hemoglobin 7.7 g/dL (12-16) L 11/27/24 08:18 Sodium 138.0 mmol/L (131-143) 11/27/24 08:18 Potassium 4.1 mmol/L (3.5-5.0) 11/27/24 08:18 Glucose 168.0 mg/dL (70-115) H 11/27/24 08:18 Ionized Calcium 1.2 mmol/L (1.1-1.4) 11/27/24 08:18 O2 Delivery Device Nc 11/27/24 08:18 O2 Liters/Min 2.0 % 11/27/24 08:18 Track Grinder Operator ID Edwardo 11/27/24 08:18 Sodium 138 mmol/L (136-145) 11/30/24 04:10 Potassium 4.3 mmol/L (3.5-5.1) 11/30/24 04:10 Chloride 94 mmol/L (98-107) L 11/30/24 04:10 Carbon Dioxide 33 mmol/L (22-29) H 11/30/24 04:10 Anion Gap 15.3 (5-19) 11/30/24 04:10 BUN 23 mg/dL (8-23) 11/30/24 04:10 Creatinine 1.3 mg/dL (0.5-0.9) H 11/30/24 04:10 GFR Calculation Not Reportable 11/30/24 04:10 Glucose 109 mg/dL (65-115) 11/30/24 04:10 POC Glucose 118 mg/dL (70-110) H 11/30/24 05:55 Calculated Osmolality 290 mOsm/kg (285-295) 11/30/24 04:10 Calcium 9.6 mg/dL (8.5-10.5) 11/30/24 04:10 Magnesium 1.7 mg/dL (1.7-2.3) 11/30/24 04:10 Iron 19 ug/dL (37-145) L 11/29/24 03:18 TIBC 339 mcg/dl 11/29/24 03:18 % Saturation 5.6 % (20-50) L 11/29/24 03:18 Unsat Iron Binding 320 ug/dL (112-347) 11/29/24 03:18 Total Bilirubin 1.0 mg/dL (0.15-1.2) 11/30/24 04:10 AST 37 U/L (0-32) H 11/30/24 04:10 ALT 19 U/L (0-33) 11/30/24 04:10 Alkaline Phosphatase 178 U/L (35-105) H 11/30/24 04:10 Troponin T Baseline 19 ng/L (0-10) H 11/27/24 07:40 Troponin T 120 Minute 23.44 ng/L (0-10) H 11/27/24 09:25 Delta Troponin T 4.44 ABS# (0-10) 11/27/24 09:25 Troponin T Hi Sens 6Hr 17.62 ng/L (0-10) H 11/27/24 15:43 Troponin T Hi Sens 6Hr Delta -1.38 ng/L (0-12) L 11/27/24 15:43 C-Reactive Protein 17.7 mg/L (0.0-4.9) H 11/27/24 07:40 Total Protein 7.1 g/dL (6.6-8.7) 11/30/24 04:10 Albumin 3.7 g/dL (3.5-5.2) 11/30/24 04:10 Globulin 3.4 g/dL (1.3-4.6) 11/30/24 04:10 Triglycerides 101 mg/dL (0-150) 11/30/24 04:10 Cholesterol 96 mg/dL (0-200) 11/30/24 04:10 LDL Cholesterol, Calc 41 mg/dL (50-129) L 11/30/24 04:10 Total VLDL Cholesterol 20 mg/dL (0-30) 11/30/24 04:10 HDL Cholesterol 35 mg/dL (60-100) L 11/30/24 04:10 Cholesterol/HDL Ratio 2.74 mg/dL (0.0-4.40) 11/30/24 04:10 Vitamin B12 416 pg/mL (232-1245) 11/29/24 03:18 Folate 5.5 ng/mL (4.8-37.3) 11/30/24 04:10 Procalcitonin 0.20 ng/mL (0-0.5) 11/29/24 03:18 TSH 3.88 uIU/mL (0.27-4.20) 11/29/24 03:18 Urine Color Yellow (Yellow) 11/27/24 08:02 Urine Appearance Clear (CLEAR) 11/27/24 08:02 Urine pH 7.0 (5-7) 11/27/24 08:02 Ur Specific [place] 1.015 (1.005-1.030) 11/27/24 08:02 Urine Protein Negative (Negative) 11/27/24 08:02 Urine Glucose (UA) Negative (Normal) 11/27/24 08:02 Urine Ketones Negative (Negative) 11/27/24 08:02 Urine Blood Negative (Negative) 11/27/24 08:02 Urine Nitrate Negative (Negative) 11/27/24 08:02 Urine Bilirubin Negative (Negative) 11/27/24 08:02 Urine Urobilinogen 2.0 mg/dL (Negative) H 11/27/24 08:02 Ur Leukocyte Esterase Negative (Negative) 11/27/24 08:02 Urine RBC 0-2 /hpf (0-2) 11/27/24 08:02 Urine WBC 0-5 /hpf (0-5) 11/27/24 08:02 Ur Squamous Epith Cells 0-5 /hpf (0-5) 11/27/24 08:02 Amorphous Sediment Not Reportable 11/27/24 08:02 Urine Bacteria None seen /hpf (NONE) 11/27/24 08:02 Hyaline Casts 0.40 /lpf 11/27/24 08:02 Influenza A (PCR) Negative (Negative) 11/27/24 08:56 Influenza Type B (PCR) Negative (Negative) 11/27/24 08:56 RSV (PCR) Negative (Negative) 11/27/24 08:56 SARS-CoV-2 (PCR) Negative (Negative) 11/27/24 08:56 Blood Type O Positive 11/27/24 09:25 Rho(D) Type Rh positive 11/27/24 09:25 Antibody Screen Negative 11/27/24 09:25 Crossmatch See Detail 11/27/24 09:25 Vitals Last Vital Signs Temp 98.0 F 11/30/24 07:06 Pulse 61 11/30/24 07:29 Resp 16 11/30/24 07:28 BP 140/61 11/30/24 07:06 Pulse Ox 98 11/30/24 07:28 O2 Del Method Nasal Cannula 11/30/24 07:28 O2 Flow Rate 2 11/30/24 07:28 Discharge Plan Discharge Patient Disposition: Xfer SNF Condition: Stable Prescriptions: Continued Januvia 25 mg tablet 25 mg PO DAILY Qty: 60 1RF insulin glargine [Lantus Solostar U-100 Insulin] 100 unit/mL (3 mL) insulin pen 25 unit SUBCUT BID Qty: 15 2RF paroxetine HCl 40 mg tablet 40 mg PO DAILY Qty: 90 1RF omeprazole 20 mg capsule,delayed release(DR/EC) 20 mg PO DAILY Qty: 90 1RF mirtazapine 15 mg tablet 15 mg PO BEDTIME Qty: 90 1RF atorvastatin 40 mg tablet 40 mg PO BEDTIME Qty: 90 1RF amiodarone 200 mg tablet 200 mg PO DAILY Qty: 90 1RF allopurinol 300 mg tablet 300 mg PO DAILY Qty: 90 1RF ipratropium-albuterol 0.5 mg-3 mg(2.5 mg base)/3 mL solution for nebulization 3 ml inhalation BID Qty: 90 0RF alprazolam 0.5 mg tablet 0.5 mg PO BID PRN (Reason: Anxiety) Qty: 30 0RF albuterol sulfate 2.5 mg /3 mL (0.083 %) solution for nebulization See Rx Instructions .ROUTE .COMPLEX Qty: 75 3RF Dose Instruction: use 1 vial in nebulizer EVERY 4 HOURS NEEDED FOR SHORTNESS OF BREATH or wheezing Rx Instructions: use 1 vial in nebulizer EVERY 4 HOURS NEEDED FOR SHORTNESS OF BREATH or wheezing fluticasone propion-salmeterol [Advair Diskus] 250-50 mcg/dose blister with device 1 inh inhalation BID Qty: 60 1RF Xarelto 20 mg tablet 20 mg PO DAILY potassium chloride 20 mEq tablet extended release 20 meq PO BID furosemide 40 mg tablet 40 mg PO BID Qty: 60 0RF acetaminophen [Tylenol Extra Strength] 500 mg Tablet 500 mg PO QID PRN (Reason: Pain) Discontinued metoprolol tartrate 25 mg tablet 25 mg PO BID Qty: 180 3RF metolazone 2.5 mg tablet 2.5 mg PO DAILY Qty: 4 0RF Discharge Orders: Discharge Order (Routine); Ordered 11/30/24 Ordered By: Juanjose Fraga Referrals: Oskar Carrera MD [Primary Care Provider, Family Practice] - 12/16/24 9:30 am Discharge Diet: Cardiac Discharge Activity: Resume usual activity and Increase activity as tolerated Patient Instructions: Opioid Safety Activity Restrictions/Additional Instructions: Restrict fluid intake to less than 1500 cc, salt intake to less than 2 g daily. Advised to check his weight daily at home. Is advised that weight today would be the dry weight and if body weight increases by around 5 pounds, patient is to take an extra dose of Lasix daily till body weight comes down to weight today. If not able to come down to dry body weight in 1 week, then is to call cardiology office for further recommendations. Patient was counseled in detail to take medications regularly as prescribed. Discharge Attestations Time Spent in Discharge Care*: greater than 30 min Specific Discharge Activities: educating patient, discussing with pcp/other providers, discussing with case supervisor/social workers/dc planners, documenting/other paperwork and evaluating patient/reviewing data Status at Discharge: Cognitive status at discharge: cognitively intact , Behavioral status at discharge: cooperative , Functional status at discharge: uses cane/walker , Overall status at discharge: patient is back to baseline Quality Metrics Clinical Quality Measures [ No reported AMI, CVA or VTE this stay] Coding Level of Care Code 86915 Total time (in minutes) for Discharge: 65 Diagnoses CHF (congestive heart failure) I50.9 Anemia D64.9 Debility R53.81 Atrial fibrillation I48.91 Bradycardia R00.1 DM type 2 (diabetes mellitus, type 2) E11.9
[2024-11-30] MEDS: insulin glargine 100 units/1 mL 25 UNIT SUBCUT (08:56)
[2024-11-30] MEDS: potassium chloride ER 20 mEq Tablet PO (08:56)
[2024-11-30] MEDS: enoxaparin 100 mg/mL Syringe 90 MG SUBCUT (08:56)
[2024-11-30] MEDS: allopurinol 300 mg Tablet PO (08:56)
[2024-11-30] MEDS: PARoxetine 20 mg Tablet 40 MG PO (08:56)
[2024-11-30] MEDS: pantoprazole DR 40 mg Tablet PO (08:56)
[2024-11-30] MEDS: amiodarone 200 mg Tablet PO (08:56)
[2024-11-30 10:43] LABS: Influenza A NEGATIVE (Negative); Influenza B NEGATIVE (Negative); Respiratory Syncytial Virus Ce NEGATIVE (Negative); SARS-CoV-2 PCR NEGATIVE (Negative)
[2024-11-30] MEDS: ALPRAZolam 0.5 mg Tablet PO (11:24)
--- NOTE | 2024-11-30 11:32 | PC.NURSE ---
patient is waiting on echo to be done before she can be discharged
== END 2024-11-30 13:02 | disposition skilled nursing facility (03) | DRG 291 ==
LOC: ER 07:57 → CSU 10:38 → ER IP 15:42
PROVIDERS: Admitting Provider Internal Medicine; Emergency Provider Family Medicine; PCP Family Medicine; Visit Provider Student in an Organized Health Care Education/Training Program
DX: I11.0 Hypertensive heart disease with heart failure (principal); I50.33 Acute on chronic diastolic (congestive) heart failure; N17.9 Acute kidney failure, unspecified; I48.91 Unspecified atrial fibrillation; R53.81 Other malaise; R00.1 Bradycardia, unspecified; E11.9 Type 2 diabetes mellitus without complications; F95.2 Tourette's disorder; R09.02 Hypoxemia; K21.9 Gastro-esophageal reflux disease without esophagitis; F32.9 Major depressive disorder, single episode, unspecified; E78.5 Hyperlipidemia, unspecified; J45.909 Unspecified asthma, uncomplicated; F41.9 Anxiety disorder, unspecified; M10.9 Gout, unspecified; Z86.73 Personal history of transient ischemic attack (TIA), and cerebral infarction without residual deficits; Z79.4 Long term (current) use of insulin; Z79.84 Long term (current) use of oral hypoglycemic drugs
CPT/HCPCS: 36415; 36416; 36430; 36600; 51702; 71045; 80051; 80053; 80061; 81001; 82330; 82607; 82746; 82805; 82962; 83540; 83550; 83735; 84145; 84443; 84484; 85025; 86140; 86850; 86900; 86920; 87637; 93005; 93306; 94640; 96372; 96374; 96376; 97110; 97116; 97161; 99285; A9270; J1650; J1815; J1938; J9999; P9016; P9046